=== PATIENT | female | born 1965 | race Caucasian/White ===

== ENCOUNTER → 2017-10-14 | Outpatient (CLI) | payer OTHER | END | disposition home or self-care (01) | LOC: RAD 10:31 | DX: M17.0 Bilateral primary osteoarthritis of knee (principal); M79.642 Pain in left hand; M79.641 Pain in right hand | CPT/HCPCS: 73130; 73562 ==

== ENCOUNTER 2017-10-28 17:15 | Emergency (ER) | payer SELFPAY, OTHER ==
[2017-10-28] MEDS ORDERED: oxyCODONE/APAP 5/325 1 TAB TABLET (17:32)
[2017-10-28] MEDS: oxyCODONE/APAP 5/325 1 TAB TABLET PO (17:34)
== END 2017-10-28 20:04 | disposition home or self-care (01) ==
LOC: ER 17:15
DX: M25.562 Pain in left knee (principal); M19.90 Unspecified osteoarthritis, unspecified site; E78.00 Pure hypercholesterolemia, unspecified; I10 Essential (primary) hypertension; E28.2 Polycystic ovarian syndrome; Z88.2 Allergy status to sulfonamides; Z88.1 Allergy status to other antibiotic agents; Z88.5 Allergy status to narcotic agent
CPT/HCPCS: 29505; 73562; 99284

== ENCOUNTER 2021-03-31 08:52 | Inpatient (IN) | payer SELFPAY ==
[~2021-03-31] VITALS: Ht 170.2 cm; Wt 171.5 kg
[~2021-03-31 08:52] MED LIST: ATOR20TA PO; HYDR-2145 PO; LEVO750T31 PO; LEVO750T5 PO; OLME1TAB23 PO; OLME20TA17 PO; OXYC5CAP PO; PROVENTIL HFA6.7 GM IH
[2021-03-31] MEDS ORDERED: IV NORMAL SALINE 500ML BAG 500 ML IV PRN (09:45)
[2021-03-31] MEDS ORDERED: VANCOMYCIN 2 GM in IV NORMAL SALINE 500ML BAG 500 ML IV ONE (10:00)
[2021-03-31] MEDS: IV NORMAL SALINE 1000ML BAG 1,860 ML IV SCH ×5 (10:03→13:45)
[2021-03-31 10:07] LABS: CALCIUM 8.6 mg/dL (8.5-10.1); CREATININE 1.2 mg/dL (0.6-1.0); GFR 46.6; POTASSIUM 3.6 mmol/L (3.5-5.1)
[2021-03-31 10:13] LABS: ALBUMIN 2.9 g/dL (3.4-5.0); ALBUMIN/GLOBULIN RATIO 0.7 (1.0-1.7); TOTAL BILIRUBIN 0.6 mg/dL (0.2-1.0); TOTAL PROTEIN 7.3 g/dL (6.4-8.2)
[2021-03-31 10:22] LABS: BILIRUBIN,URINE NEGATIVE (NEG); CLARITY,URINE CLEAR; COLOR,URINE AMBER; NITRITE,URINE NEGATIVE (NEG); PH,URINE 5.5 (<5.0-8.0); PROTEIN,URINE 100 mg/dL (NEG-TRACE)
[2021-03-31] MEDS ORDERED: ACETAMINOPHEN 500 MG TABLET PO ONE (10:30)
--- NOTE | 2021-03-31 10:35 | PHYS DOC ---
Past Medical History Past Medical History: Arthritis, Bronchitis, Endometriosis, High Cholesterol, Hypertension Additional Past Medical Histor: polycystic ovarian syndrome Past Surgical History: Appendectomy, , Other Additional Past Surgical Histo: meniscus Smoking Status: Current Every Day Smoker Alcohol Use: Occasionally Drug Use: None General Adult EDM: Chief Complaint: SHORTNESS OF BREATH HPI: HPI: Patient is a 55 year old female who presents with shortness of breath. States that shortness of breath started this morning, but she had 2 weeks of cough productive of clear sputum. Over the same timeframe she is also had a progressive rash on her right lower extremity that has been draining purulent material. Has not sought medical care for this. States that she started to have fevers this morning. She states that she has been fully vaccinated for Covid. Denies known Covid contacts. Has not had a Covid test during this illne ss. She has been isolating at home since she has been feeling unwell. Denies chest pain Review of Systems: Review of Systems: Constitutional: Reports fever and chills [] Eyes: Denies change in visual acuity. [] HENT: Denies nasal congestion or sore throat. [] Respiratory: reports cough and shortness of breath. [] Cardiovascular: Denies chest pain or edema. [] GI: Denies abdominal pain, nausea, vomiting, bloody stools or diarrhea. [] : Denies dysuria. [] Musculoskeletal: Denies back pain or joint pain. [] Integument: Reports lower extremity rash [] Neurologic: Denies headache, focal weakness or sensory changes. [] Endocrine: Denies polyuria or polydipsia. [] Lymphatic: Denies swollen glands. [] Psychiatric: Denies depression or anxiety. [] Heart Score: C/O Chest Pain: No Risk Factors: Risk Factors: DM, Current or recent (<one month) smoker, HTN, HLP, family history of CAD, obesity. Risk Scores: Score 0 - 3: 2.5% MACE over next 6 weeks - Discharge Home Score 4 - 6: 20.3% MACE over next 6 weeks - Admit for Clinical Observation Score 7 - 10: 72.7% MACE over next 6 weeks - Early Invasive Strategies Current Medications: Current Medications Medications (Trade) Dose Ordered Sig/Donavan Start Time Stop Time Status Last Admin Dose Admin Levofloxacin/ Dextrose 150 ml @ 100 mls/hr 1X ONCE 03/31/21 09:45 03/31/21 11:14 03/31/21 10:03 100 MLS/HR Sodium Chloride 500 ml @ 1,000 mls/hr PRN Q30MIN PRN 03/31/21 09:45 Vancomycin HCl (Vanco Per Pharmacy) 1 each PRN DAILY PRN 03/31/21 09:45 UNV Vancomycin HCl 2 gm/Sodium Chloride 500 ml @ 250 mls/hr 1X ONCE 03/31/21 10:00 03/31/21 11:59 Allergies: Allergies: Allergies Coded Allergies Type Severity Reaction Last Updated Verified Sulfa (Sulfonamide Antibiotics) Allergy Intermediate hives 03/30/15 Yes cephalexin Allergy Intermediate Hives 04/04/16 Yes codeine Allergy Intermediate 04/04/16 Yes hydrocodone Allergy Intermediate 04/04/16 Yes tetracycline Allergy Intermediate 04/04/16 Yes Physical Exam: PE: Constitutional: Obese, chronically ill-appearing.] HENT: Normocephalic, atraumatic,. [] Eyes: PERRLA, EOMI, conjunctiva normal, no discharge. [] Neck: Normal range of motion, no tenderness, supple, no stridor. [] Cardiovascular: Tachycardic. Regular rhythm, no murmur [] Lungs & Thorax: Rhonchi bilaterally on anterior auscultatory exam. On 6 L/min nasal cannula [] Abdomen: Bowel sounds normal, soft, no tenderness, no masses, no pulsatile masses. [] Skin: Warm, dry, no erythema, no rash. [] Back: No tenderness, no CVA tenderness. [] Extremities: Bilateral lower extremity edema. Streaking redness up her right leg. Purulent ulcers on the anterior villalpando on the right.. [] Neurologic: Alert and oriented X 3, normal motor function, normal sensory function, no focal deficits noted. [] Psychologic: Affect normal, judgement normal, mood normal. [] Current Patient Data: Labs: Laboratory Tests Test 03/31/21 09:28 Sodium Level 137 mmol/L (136-145) Potassium Level 3.6 mmol/L (3.5-5.1) Chloride Level 100 mmol/L (98-107) Carbon Dioxide Level 30 mmol/L (21-32) Anion Gap 7 (6-14) Blood Urea Nitrogen 12 mg/dL (7-20) Creatinine 1.2 mg/dL (0.6-1.0) H Estimated GFR (Cockcroft-Gault) 46.6 BUN/Creatinine Ratio 10 (6-20) Glucose Level 182 mg/dL (70-99) H Lactic Acid Level 3.6 mmol/L (0.4-2.0) H Calcium Level 8.6 mg/dL (8.5-10.1) Total Bilirubin 0.6 mg/dL (0.2-1.0) Aspartate Amino Transferase (AST) 12 U/L (15-37) L Alanine Aminotransferase (ALT) 27 U/L (14-59) Alkaline Phosphatase 118 U/L (46-116) H Total Protein 7.3 g/dL (6.4-8.2) Albumin 2.9 g/dL (3.4-5.0) L Albumin/Globulin Ratio 0.7 (1.0-1.7) L Laboratory Tests 03/31/21 09:28 Vital Signs: Vital Signs Date Time Temp Pulse Resp B/P (MAP) Pulse Ox O2 Delivery O2 Flow Rate FiO2 03/31/21 10:01 103.1 123 25 117/54 (75) 99 Nasal Cannula 4.0 103.1 EKG: EKG: Sinus rhythm. Rate 129. [] Radiology/Procedures: Radiology/Procedures: [] Course & Med Decision Making: Course & Med Decision Making Pertinent Labs and Imaging studies reviewed. (See chart for details) Patient a 55-year-old female who presents with 2 weeks of cough now with fever and shortness of breath. She also complains of 2 weeks of right lower extremity rash with purulent disch arge. On arrival is febrile to 103 F, tachycardic to the 120s/130s. Satting in the 70s on room air. Oxygen only to 86% on 5 L/min nasal cannula. Oxygen corrected into the 90s with 6 L/min nasal cannula. Vancomycin and Zosyn ordered to cover soft tissue infection as well as potential pneumonia with atypical coverage. 30 mL/kg IV fluids ordered. Lactate elevated initially to 3.6 Will require repeat after volume resuscitation. Patient will clearly require admission for sepsis and hypoxic respiratory failure. 1032 On reevaluation heart rate is improving. Cap refill remains brisk. Will be COVID PUI. Confirmed FULL CODE status with patient. Dragon Disclaimer: Dragdamir Disclaimer: This electronic medical record was generated, in whole or in part, using a voice recognition dictation system. Departure Departure Impression: Primary Impression: Sepsis Additional Impressions: Cellulitis of lower extremity Respiratory failure with hypoxia Disposition: ADMITTED INPATIENT Admitting Physician: SAIMA Bashir) Condition: IMPROVED Referrals: NO PCP (PCP) MACRINA LEVINE MD Mar 31, 2021 10:35
[2021-03-31 10:38] LABS: BACTERIA,URINE 0 /HPF (0-FEW)
[2021-03-31 10:39] LABS: AMORPHOUS SEDIMENT,UR PRESENT /HPF
[2021-03-31 11:33] LABS: BASO # 0.1 x10^3/uL (0.0-0.2); BASO % 0 % (0-3); EOS % 0 % (0-3); HEMATOCRIT 35.1 % (36.0-47.0); HEMOGLOBIN 11.8 g/dL (12.0-15.5); LYMPH # 0.5 x10^3/uL (1.0-4.8); LYMPH % 3 % (24-48); MEAN CORPUSCULAR HEMOGLOBIN 31 pg (25-35); MEAN CORPUSCULAR HGB CONC 34 g/dL (31-37); MEAN CORPUSCULAR VOLUME 92 fL (79-100); MONO # 0.7 x10^3/uL (0.0-1.1); MONO % 4 % (0-9); NEUT # 17.3 x10^3/uL (1.8-7.7); NEUT % 93 % (31-73); PLATELET COUNT 316 x10^3/uL (140-400); RED BLOOD COUNT 3.79 x10^6/uL (3.50-5.40); RED CELL DISTRIBUTION WIDTH 14.6 % (11.5-14.5); WHITE BLOOD COUNT 18.6 x10^3/uL (4.0-11.0)
--- NOTE | 2021-03-31 11:53 | RAD ---
EXAM: XR CHEST 1V 03/31/2021 10:15 AM CLINICAL INDICATION: Fever, sepsis, hypoxia COMPARISON: Chest radiograph 04/04/2016 TECHNIQUE: AP view of the chest FINDINGS: Cardiac silhouette is unchanged. There are bibasilar airspace opacities. No pleural effusi on or pneumothorax. No acute osseous abnormality. IMPRESSION: Bibasilar airspace opacities suspicious for pneumonia. Pulmonary edema is also possible. Electronically signed by: Corazon Rosales MD (03/31/2021 11:50 AM) [id number]
[2021-03-31] MEDS ORDERED: ALBUTEROL SULFATE IH PRN (12:15)
[2021-03-31] MEDS ORDERED: ALBUTEROL SULFATE 2.5 MG/3 ML NEBU. NEB PRN (12:30)
[2021-03-31] MEDS ORDERED: oxyCODONE IR 5 MG TABLET PO PRN (12:30)
[2021-03-31 12:32] LABS: % BANDS 13 % (0-9); % LYMPHS 5 % (24-48); % MONOS 1 % (0-10); % SEGS 81 % (35-66); PLT ESTIMATE ADEQUATE (ADEQUATE)
[2021-03-31 12:33] LABS: BASE EXCESS COOX -2 mmol/L (-3-3); HCO3 COOX 28 mmol/L (21-28); METHEMOGLOBIN 0.7 % (0.0-1.9); OXYHEMOGLOBIN 90.6 %; PO2 COOX 76 mmHg (75-108); SAT O2 COOX 92 % (92-99)
[2021-03-31 12:35] LABS: PCO2 COOX 71 mmHg (35-46)
--- NOTE | 2021-03-31 13:08 | HP ---
ADMIT DATE: 03/31/2021 CHIEF COMPLAINT: Respiratory failure. HISTORY OF PRESENT ILLNESS: The patient is a pleasant 55-year-old female presents with severe shortness of breath. It has been occurring for a couple of weeks. It got particularly bad this morning. She came in by ambulance. She has lower extremity edema. She also was hypoxic with a sat of 71% on 6 liters. She is also tachycardic, appears to be septic. Also, has a leukocytosis of 18,000. I discussed the case with ER physician. We are going to admit the patient and consult Cardiology, Infectious Disease and Pulmonary Medicine. PAST MEDICAL HISTORY: Bronchitis, endometriosis, hypertension, hyperlipidemia, arthritis, polycystic ovarian disease, appendectomy, , meniscus tear, continued tobacco abuse, probable COPD. ALLERGIES: SULFA, CODEINE, CEPHALEXIN, HYDROCODONE AND TETRACYCLINE. FAMILY HISTORY: Diabetes. SOCIAL HISTORY: She smokes. No drinking or drugs. MEDICATIONS: Reviewed, please refer to the MRAD. REVIEW OF SYSTEMS: GENERAL: No history of weight change, weakness or fevers. SKIN: She complains of lower extremity cellulitis. EYES: No blurred, double or loss of vision. NOSE AND THROAT: No history of nosebleeds, hoarseness or sore throat. HEART: No history of palpitations, chest pain or shortness of breath on exertion. LUNGS: She complains of shortness of breath and cough. GASTROINTESTINAL: Denies changes in appetite, nausea, vomiting, diarrhea or constipation. GENITOURINARY: No history of frequency, urgency, hesitancy or nocturia. NEUROLOGIC: Denies history of numbness, tingling, tremor or weakness. PSYCHIATRIC: She complains of anxiety. ENDOCRINE: No history of heat or cold intolerance, polyuria or polydipsia. EXTREMITIES: She complains of edema. PHYSICAL EXAMINATION: VITALS: Within normal limits and are stable. GENERAL: She is morbidly obese writhing around in the bed, appears very agitated. HEENT: Normal cephalic atraumatic, external auditory canals are patent. EYES: Extraocular muscles are intact, pupils are equally round and reactive to light and accommodation MUSCULOSKELETAL: Well developed, well nourished, good range of motion. ENDOCRINE: No thyromegaly was palpated. LYMPHATICS: No cervical chain or axillary nodes were noted. HEMATOPOIETIC: No bruising. NECK: Supple, no JVD, no thyromegaly was noted. LUNGS: Diffuse crackles with diminished breath sounds. HEART: She has distant S1, S2 with tachycardia at 140 beats per minute. ABDOMEN: Morbidly obese. EXTREMITIES: 3+ edema with cellulitis. NEUROLOGIC: She is pleasantly confused. PSYCHIATRIC: She is anxious. SKIN: She has lower extremity cellulitis. VASCULAR: Good capillary refill, neurovascular bundle appears to be intact. LABORATORY DATA: White count is 18, hemoglobin is 12, platelets 316. Electrolytes are normal. Cardiac enzymes are pending. Urinalysis negative. COVID testing was negative. Chest x-ray shows congestive heart failure and/or pneumonia. ASSESSMENT AND PLAN: Respiratory failure, cellulitis, hypoxia, sepsis, morbid obesity, tachycardia. The patient has been admitted. We will consult Cardiology, Pulmonary, and Infectious Disease. We started IV antibiotics. We have given her IV fluids. We are going to continue with those. Home meds. Deep venous thrombosis prophylaxis. Full code. Check an ABG. Await cardiac enzymes. She got 1 dose of Levaquin and vancomycin in the ER. Trend labs. Prognosis is extremely guarded at best. JINNY/BASIL/JOHN DR: JINNY/latia TID: [id number]
[2021-03-31] MEDS: hydroCHLOROthiazide 12.5 MG CAPSULE PO SCH (14:00)
[2021-03-31] MEDS: LOSARTAN POTASSIUM 50 MG TABLET. PO SCH (14:00)
[2021-03-31 14:31] LABS: BASE EXCESS ABG 0 mmol/L (-3-3); HCO3 ABG 28 mmol/L (21-28); PO2 ABG 135 mmHg (75-108); SAT O2 ABG 98 % (92-99)
[2021-03-31 14:34] LABS: PCO2 ABG 63 mmHg (35-46)
[2021-03-31] MEDS: VANCOMYCIN PER PHARMACY MC PRN (16:19)
--- NOTE | 2021-03-31 16:21 | NUR ---
Pharmacy Vancomycin Dosing Note S:Consulted to monitor and dose vancomycin started 03/31/21. O:ALBERT BROOKS is a 55 year old F with Cellulitis Sepsis RESP FAILURE . Height: 5 feet, 7 inches Weight: 152.2 kg [place] Body Weight: 66.10 Adjusted Body Weight: 100.54 Dosing Weight: Actual Other Antibiotics: LEVAQUIN 750MG X1 (03/31) LABS: Last BUN: 12 Last Creatinine: 1.2 Creatinine Clearance: 82 mL/min Last WBC: 18.6 Last Procalcitonin: Tmax (past 24 hours): 103.1 Microbiology: I/O: Drug Levels: Last level: on at Last dose given 03/31/21 at 1133 Vancomycin Dosing: Loading Dose: 2000 mg x1 Dosing Weight: Actual Target Trough: 15-20 A: Based on: Body weight and renal function P: 1. Start Vancomycin 2000 mg IV q12h 2. Follow up Trough level on 04/01/21 at 2300 3. Pharmacy will continue to monitor, follow and adjust therapy as needed. IVAN CANO [facility], 03/31/21 [id number]
--- NOTE | 2021-03-31 16:22 | EKG ---
[facility] [address] [place] [address] Test Date: 2021-03-31 Test Time: 09:17:26 Pat Name: ALBERT BROOKS Department: Room: [facility] Gender: F Qa Tech: : 1965 Requested By: MACRINA LEVINE Order Number: [id number] Reading MD: Measurements Intervals [place] Rate: 129 P: -79 NM: 146 QRS: 43 QRSD: 88 T: 69 QT: 302 QTc: 444 Interpretive Statements SINUS TACHYCARDIA ST & T ABNORMALITY, CONSIDER HIGH LATERAL ISCHEMIA OR LEFT VENTRICULAR STRAIN ABNORMAL ECG RI6.02 Compared to ECG 03/31/2021 09:14:51 T-wave abnormality now present Possible ischemia now present
--- NOTE | 2021-03-31 16:22 | EKG ---
[facility] [address] [place] [address] Test Date: 2021-03-31 Test Time: 09:14:51 Pat Name: ALBERT BROOKS Department: Room: [facility] Gender: F Medical Device Sales Representative: : 1965 Requested By: MACRINA LEVINE Order Number: [id number] Reading MD: Measurements Intervals [place] Rate: 125 P: 47 GA: 154 QRS: 44 QRSD: 86 T: 74 QT: 304 QTc: 441 Interpretive Statements Cannot analyze ECG CHEST LEAD(S) MISSING! (Measurements might be questionable) RI6.02 No previous ECG available for comparison
[2021-03-31 17:05] VITALS: BP 125/65
[2021-03-31] MEDS ORDERED: IV NORMAL SALINE 1000ML BAG 1,000 ML IV ONE (17:15)
[2021-03-31] MEDS ORDERED: LORazepam 0.5 MG TABLET PO PRN (17:15)
[2021-03-31] MEDS ORDERED: MORPHINE SULFATE 2 MG/ML INJ. IV PRN (17:15)
[2021-03-31 19:00] VITALS: BP 178/85
[2021-03-31] MEDS: VANCOMYCIN 2 GM in IV NORMAL SALINE 500ML BAG 500 ML IV SCH (22:33)
[2021-03-31 23:00] VITALS: BP_SYST 137; BP_SYST 67; BP_DIAS 67; BP_DIAS 85
[2021-04-01 02:35] VITALS: BP 130/70
[2021-04-01 05:01] LABS: BASO % 0 % (0-3); EOS % 0 % (0-3); HEMATOCRIT 32.5 % (36.0-47.0); HEMOGLOBIN 11.1 g/dL (12.0-15.5); LYMPH # 0.6 x10^3/uL (1.0-4.8); LYMPH % 4 % (24-48); MEAN CORPUSCULAR HEMOGLOBIN 32 pg (25-35); MEAN CORPUSCULAR HGB CONC 34 g/dL (31-37); MEAN CORPUSCULAR VOLUME 93 fL (79-100); MONO # 0.6 x10^3/uL (0.0-1.1); MONO % 3 % (0-9); NEUT # 15.6 x10^3/uL (1.8-7.7); NEUT % 93 % (31-73); PLATELET COUNT 244 x10^3/uL (140-400); RED BLOOD COUNT 3.51 x10^6/uL (3.50-5.40); RED CELL DISTRIBUTION WIDTH 14.8 % (11.5-14.5); WHITE BLOOD COUNT 16.8 x10^3/uL (4.0-11.0)
[2021-04-01 05:11] LABS: CALCIUM 8.7 mg/dL (8.5-10.1); CREATININE 0.9 mg/dL (0.6-1.0); POTASSIUM 3.7 mmol/L (3.5-5.1)
[2021-04-01 07:00] VITALS: BP 173/75
[2021-04-01] MEDS: ATORVASTATIN CALCIUM 20 MG TABLET PO SCH (09:28)
[2021-04-01] MEDS: hydroCHLOROthiazide 12.5 MG CAPSULE PO SCH (09:28)
[2021-04-01] MEDS: LOSARTAN POTASSIUM 50 MG TABLET. PO SCH (09:28)
[2021-04-01] MEDS: ACETAMINOPHEN 325 MG TABLET. PO PRN (09:28)
--- NOTE | 2021-04-01 09:49 | CONS ---
DATE OF CONSULTATION: 04/01/2021 PULMONARY CONSULTATION ATTENDING PHYSICIAN: Kei Loyd DO. REASON FOR CONSULTATION: Respiratory failure. HISTORY OF PRESENT ILLNESS: The patient is a 55-year-old morbidly obese female with a BMI of 59.9 and history of tobacco use. She was brought into the hospital with dyspnea. She was hypoxic with saturation of 71% on 6 liters. She is also tachycardic. The patient had some cough with some chest pain. Her initial arterial blood gases in the ER was abnormal and it showed a pH of 7.21, pCO2 of 71, pO2 of 76 on 40% FIO2. She was then placed on BiPAP. FiO2 was increased to 60% for unclear reasons. PH was 7.27, pCO2 of 63 and a pO2 of 135. Apparently, she was kept on the BiPAP at the same FiO2 overnight. I saw the patient this morning. Unable to obtain much history from the patient as she is on a BiPAP. She admits to long history of tobacco use. No chest pain. She has mild cough. Saturations are 99%. PAST MEDICAL HISTORY: Likely COPD. History of suspected MINA/obesity hypoventilation syndrome, history of polycystic ovarian disease. Hypertension, bronchitis, endometriosis, hyperlipidemia. PAST SURGICAL HISTORY: , meniscus tear. ALLERGIES: SULFA, CEPHALEXIN, CODEINE, HYDROCODONE, AND TETRACYCLINE. MEDICATIONS: Reviewed as listed in the MRAD including antibiotic vancomycin, which was given once. SYSTEM REVIEW: Limited, but pertinent positives discussed in my history of present illness. SOCIAL HISTORY: Has long history of tobacco use and still smokes. PHYSICAL EXAMINATION: VITAL SIGNS: Reviewed. Afebrile, pulse ox 99% on 60% FiO2 with BiPAP. NECK: Supple. LUNGS: Diminished breath sounds bilaterally. CARDIOVASCULAR: With a regular rate. ABDOMEN: Soft, markedly obese. EXTREMITIES: With bilateral pitting edema. LABORATORY AND DIAGNOSTIC DATA: Labs are reviewed. COVID rapid negative. BUN 12, creatinine 0.9. Troponin 0.56. White cell count 16.8, hemoglobin 11.1 and platelets are 244. IMPRESSION: 1. Acute on chronic hypoxic and hypercapnic respiratory failure, likely secondary to right heart failure versus left heart failure and could be combined heart failure. Clinically, less likely pneumonia. Clinically, less likely COVID. Rapid test for COVID is negative. 2. Underlying obstructive sleep apnea along with obesity hypoventilation syndrome with cor pulmonale. 3. Mildly increased troponin. 4. Mildly increased lactic acid from increased work of breathing, now improved. 5. Abnormal chest x-ray with bilateral interstitial infiltrates, likely congestive heart failure. RECOMMENDATIONS: 1. I have reduced the FiO2 down to 40%. We will avoid hyperoxia. 2. Follow ABGs in few hours. 3. Diuresis. 4. Obtain echocardiogram. 5. Discontinue oxycodone. 6. Continue nebulizer. 7. Smoking cessation counseling provided. 8. Discontinue lorazepam and morphine. 9. Discussed with RN. We will follow along with you. cct 30 min LIVIA/JOHNATHAN DR: Lauro TID: [id number] JEFF
[2021-04-01] MEDS: VANCOMYCIN PER PHARMACY MC PRN (10:01)
[2021-04-01 11:00] VITALS: BP 98/51
[2021-04-01] MEDS: VANCOMYCIN 2 GM in IV NORMAL SALINE 500ML BAG 500 ML IV SCH (12:18)
[2021-04-01] MEDS ORDERED: PIP/TAZO PER PHARMACY MC PRN (12:30)
--- NOTE | 2021-04-01 12:31 | PDOC ---
[facility] PROGRESS NOTE Date of Service DOS: DATE: 04/01/21 TIME: 12:18 Chief Complaint Chief Complaint Sepsis Acute on chronic hypoxic and hypercapnic respiratory failure Bilateral bibasilar pneumonia, possible gram-negative organism, possible aspiration MINA Cor pulmonale Elevated troponins MAURA due to vasomotor nephropathy Lactic acidemia Super super morbid obesity Anemia of chronic disease Severe protein malnutrition Appreciate pulmonary and surgery recommendationscontinue BiPAP and O2 supplementation. Repeat ABG. Pending cardiology evaluation Pending ID evaluation Continue empiric IV antibiotics Lovenox DVT prophylaxis Protonix GI prophylaxis ADA diet CODE STATUS full Discussed with RN and SW Disposition inpatient management as above DPOA: Designated History of Present Illness History of Present Illness 55-year-old female presents with severe shortness of breath. It has been occurring for a couple of weeks. It got particularly bad this morning. She came in by ambulance. She has lower extremity edema. She also was hypoxic with a sat of 71% on 6 liters. She is also tachycardic, appears to be septic. 04/01/2021 No acute events overnight. Patient continues to be on BiPAP and is saturating 96% on 60% FiO2. This will be titrated down to 40% per pulmonology pending further ABG. Fever overnight with T-max of 102.7. Patient seen and examined bedside with altered mental status. But she is able to keep the BiPAP on without agitation. However patient does require some sedatives such as Ativan to help her keep the mask on. Patient's chart, labs, images were reviewed and discussed with RN A total of 35 minutes of critical care time was spent in reviewing chart, labs, and images. Discussed with RN and SW. Vitals/I&O Vitals/I&O: Vital Signs Date Time Temp Pulse Resp B/P (MAP) Pulse Ox O2 Delivery O2 Flow Rate FiO2 04/01/21 11:00 100.7 96 19 98/51 (67) 96 BiPAP/CPAP 60.0 100.7 I & O 03/31/21 03/31/21 04/01/21 15:00 23:00 07:00 Intake Total 500 ml 0 ml 0 ml Output Total 800 ml Balance 500 ml 0 ml -800 ml Physical Exam General: Alert, No acute distress Heart: No murmurs Lungs: Clear Abdomen: Normal bowel sounds Extremities: No clubbing Labs Labs: Laboratory Tests Test 03/31/21 12:33 03/31/21 13:10 03/31/21 14:20 04/01/21 04:30 O2 Saturation 92 % (92-99) 98 % (92-99) Arterial Blood pH 7.21 (7.35-7.45) 7.27 (7.35-7.45) Arterial Blood pCO2 at Patient Temp 71 mmHg (35-46) 63 mmHg (35-46) Arterial Blood pO2 at Patient Temp 76 mmHg (75-108) 135 mmHg (75-108) Arterial Blood HCO3 28 mmol/L (21-28) 28 mmol/L (21-28) Arterial Blood Base Excess -2 mmol/L (-3-3) 0 mmol/L (-3-3) Oxyhemoglobin 90.6 % Methemoglobin 0.7 % (0.0-1.9) Carbon Monoxide, Quantitative 1.2 % (0.0-1.9) FiO2 40% 5lnc 60 bipap Lactic Acid Level 1.2 mmol/L (0.4-2.0) White Blood Count 16.8 x10^3/uL (4.0-11.0) Red Blood Count 3.51 x10^6/uL (3.50-5.40) Hemoglobin 11.1 g/dL (12.0-15.5) Hematocrit 32.5 % (36.0-47.0) Mean Corpuscular Volume 93 fL (79-100) Mean Corpuscular Hemoglobin 32 pg (25-35) Mean Corpuscular Hemoglobin Concent 34 g/dL (31-37) Red Cell Distribution Width 14.8 % (11.5-14.5) Platelet Count 244 x10^3/uL (140-400) Neutrophils (%) (Auto) 93 % (31-73) Lymphocytes (%) (Auto) 4 % (24-48) Monocytes (%) (Auto) 3 % (0-9) Eosinophils (%) (Auto) 0 % (0-3) Basophils (%) (Auto) 0 % (0-3) Neutrophils # (Auto) 15.6 x10^3/uL (1.8-7.7) Lymphocytes # (Auto) 0.6 x10^3/uL (1.0-4.8) Monocytes # (Auto) 0.6 x10^3/uL (0.0-1.1) Eosinophils # (Auto) 0.0 x10^3/uL (0.0-0.7) Basophils # (Auto) 0.0 x10^3/uL (0.0-0.2) Sodium Level 139 mmol/L (136-145) Potassium Level 3.7 mmol/L (3.5-5.1) Chloride Level 103 mmol/L (98-107) Carbon Dioxide Level 35 mmol/L (21-32) Anion Gap 1 (6-14) Blood Urea Nitrogen 12 mg/dL (7-20) Creatinine 0.9 mg/dL (0.6-1.0) Estimated GFR (Cockcroft-Gault) 65.0 Glucose Level 112 mg/dL (70-99) Calcium Level 8.7 mg/dL (8.5-10.1) Assessment and Plan Assessmemt and Plan Problems Medical Problems: (1) Cellulitis of lower extremity Status: Acute (2) Respiratory failure with hypoxia Status: Acute (3) Sepsis Status: Acute Comment Review of Relevant I have reviewed the following items sunitha (where applicable) has been applied. Medications: Current Medications Medications (Trade) Dose Ordered Sig/Donavan Route PRN Reason Start Time Stop Time Status Last Admin Dose Admin Atorvastatin Calcium (Lipitor) 20 mg DAILY PO 04/01/21 09:00 04/01/21 09:28 Losartan Potassium (Cozaar) 100 mg DAILY PO 03/31/21 14:00 04/01/21 09:28 Hydrochlorothiazide (Microzide) 12.5 mg DAILY PO 03/31/21 14:00 04/01/21 09:28 Vancomycin HCl 2 gm/Sodium Chloride 500 ml @ 250 mls/hr Q12H IV 03/31/21 23:30 03/31/21 22:33 Morphine Sulfate (Morphine Sulfate) 2 mg PRN Q2HR PRN IV MODERATE TO SEVERE PAIN 03/31/21 17:15 04/01/21 08:21 DC 04/01/21 01:50 Sodium Chloride 1,000 ml @ 75 mls/hr 1X ONCE IV 03/31/21 17:15 04/01/21 06:34 DC 03/31/21 22:11 Acetaminophen (Tylenol) 650 mg PRN Q6HRS PRN PO MILD PAIN / TEMP > 100.3'F 04/01/21 08:45 04/01/21 09:28 Justifications for Admission Other Justification MARIALUISA RIVAS MD Apr 01, 2021 12:31
[2021-04-01] MEDS ORDERED: ENOXAPARIN 30 MG/0.3 ML SYRINGE. SQ ONE (13:00)
[2021-04-01] MEDS: PIPERACILLIN/TAZOBACTAM 3.375 GM in IV NORMAL SALINE 50ML 50 ML IV SCH ×2 (14:09→17:07)
[2021-04-01] MEDS: PANTOPRAZOLE 40 MG TABLET.DR. PO SCH (14:10)
[2021-04-01 14:55] LABS: BASE EXCESS ABG 4 mmol/L (-3-3); HCO3 ABG 31 mmol/L (21-28); PCO2 ABG 55 mmHg (35-46); PO2 ABG 84 mmHg (75-108); SAT O2 ABG 96 % (92-99)
[2021-04-01 15:00] VITALS: BP 145/74
[2021-04-01 15:16] LABS: FIO2 ABG 35
[2021-04-01 15:20] LABS: BASE EXCESS ABG 6 mmol/L (-3-3); HCO3 ABG 33 mmol/L (21-28); PCO2 ABG 58 mmHg (35-46); PO2 ABG 93 mmHg (75-108)
[2021-04-01 15:21] LABS: FIO2 ABG 60; SAT O2 ABG 95 % (92-99)
--- NOTE | 2021-04-01 15:57 | PDOC2 ---
CONSULT Date of Consult Date of Consult DATE: 04/01/21 TIME: 15:50 Reason for Consult Reason for Consult: Shortness of breath, elevated troponin Referring Physician Referring Physician: Dr. Loyd Identification/Chief Complaint Chief Complaint Increasing shortness of breath Source Source: Chart review, Patient History of Present Illness Reason for Visit: The patient is a 55-year-old female who was admitted through the emergency room for several days of increasing shortness of breath. Patient also was found to have a temperature of 103 degrees on admission from the ER and her chest x-ray showed bilateral pleural air space opacities consistent with possible pneumonia or heart failure. The patient was in a sinus tachycardia with no acute ischemic changes. She was started on antibiotics and pulmonary treatments. She is now on CPAP and continues to be short of breath. Initial testing for COVID-19 has been negative. She is mildly more comfortable today. Past Medical History Cardiovascular: HTN, Hyperlipidemia Pulmonary: Bronchitis, COPD Endocrine: Other Past Surgical History Past Surgical History: Appendectomy, Family History Family History: Diabetes Social History <1 pack per day ALCOHOL: occassional Current Problem List Problem List Problems Medical Problems: (1) Cellulitis of lower extremity Status: Acute (2) Respiratory failure with hypoxia Status: Acute (3) Sepsis Status: Acute Current Medications Current Medications Current Medications Sodium Chloride 1,860 ml @ 1,860 mls/hr Q1H IV Last administered on 03/31/21at 12:33; Start 03/31/21 at 09:45; Stop 03/31/21 at 22:11; Status DC Sodium Chloride 500 ml @ 1,000 mls/hr PRN Q30MIN PRN IV SEE COMMENTS; Start 03/31/21 at 09:45 Vancomycin HCl (Vanco Per Pharmacy) 1 each PRN DAILY PRN MC SEE COMMENTS Last administered on 04/01/21at 10:01; Start 03/31/21 at 09:45; Stop 04/01/21 at 12:31; Status DC Levofloxacin/ Dextrose 150 ml @ 100 mls/hr 1X ONCE IV Last administered on 03/31/21at 10:03; Start 03/31/21 at 09:45; Stop 03/31/21 at 11:14; Status DC Vancomycin HCl 2 gm/Sodium Chloride 500 ml @ 250 mls/hr 1X ONCE IV Last administered on 03/31/21at 11:33; Start 03/31/21 at 10:00; Stop 03/31/21 at 11:59; Status DC Acetaminophen (Tylenol) 1,000 mg 1X ONCE PO Last administered on 03/31/21at 12:01; Start 03/31/21 at 10:30; Stop 03/31/21 at 10:31; Status DC Atorvastatin Calcium (Lipitor) 20 mg DAILY PO Last administered on 04/01/21at 09:28; Start 04/01/21 at 09:00 Non-Formulary Medication (Albuterol Sulfate (Proventil Hfa Inhaler)) . PRN PRN IH WHEEZING; Start 03/31/21 at 12:15; Status UNV Losartan Potassium (Cozaar) 100 mg DAILY PO Last administered on 04/01/21at 09:28; Start 03/31/21 at 14:00 Oxycodone HCl (Roxicodone) 5 mg PRN QID PRN PO MODERATE TO SEVERE PAIN; Start 03/31/21 at 12:30; Stop 04/01/21 at 08:21; Status DC Hydrochlorothiazide (Microzide) 12.5 mg DAILY PO Last administered on 04/01/21at 09:28; Start 03/31/21 at 14:00 Albuterol Sulfate (Ventolin Neb Soln) 2.5 mg PRN Q4HRS PRN NEB SHORTNESS OF BREATH; Start 03/31/21 at 12:30 Vancomycin HCl 2 gm/Sodium Chloride 500 ml @ 250 mls/hr Q12H IV Last administered on 04/01/21at 12:18; Start 03/31/21 at 23:30; Stop 04/01/21 at 12:27; Status DC Vancomycin HCl (Vancomycin Trough Level) 1 each 1X ONCE MC ; Start 04/01/21 at 23:00; Stop 04/01/21 at 12:34; Status DC Lorazepam (Ativan) 0.25 mg PRN Q6HRS PRN PO ANXIETY / AGITATION; Start 03/31/21 at 17:15; Stop 04/01/21 at 08:21; Status DC Morphine Sulfate (Morphine Sulfate) 2 mg PRN Q2HR PRN IV MODERATE TO SEVERE PAIN Last administered on 04/01/21at 01:50; Start 03/31/21 at 17:15; Stop 04/01/21 at 08:21; Status DC Sodium Chloride 1,000 ml @ 75 mls/hr 1X ONCE IV Last administered on 03/31/21at 22:11; Start 03/31/21 at 17:15; Stop 04/01/21 at 06:34; Status DC Acetaminophen (Tylenol) 650 mg PRN Q6HRS PRN PO MILD PAIN / TEMP > 100.3'F Last administered on 04/01/21at 09:28; Start 04/01/21 at 08:45 Piperacillin Sod/ Tazobactam Sod (Zosyn Per Pharmacy) 1 each PRN DAILY PRN MC SEE COMMENTS; Start 04/01/21 at 12:30 Enoxaparin Sodium (Lovenox 30mg Syringe) 30 mg 1X ONCE SQ Last administered on 04/01/21at 14:08; Start 04/01/21 at 13:00; Stop 04/01/21 at 13:01; Status DC Pantoprazole Sodium (Protonix) 40 mg DAILYAC PO Last administered on 04/01/21at 14:10; Start 04/01/21 at 14:00 Piperacillin Sod/ Tazobactam Sod 3.375 gm/Sodium Chloride 50 ml @ 100 mls/hr Q6HRS IV Last administered on 04/01/21at 14:09; Start 04/01/21 at 13:30 Lactobacillus Rhamnosus (Culturelle) 1 cap BID PO ; Start 04/01/21 at 21:00 Linezolid (Zyvox) 600 mg BID PO ; Start 04/01/21 at 21:00 Active Scripts Active Oxycodone Hcl 5 Mg Capsule 1 Cap PO QID PRN Levaquin (Levofloxacin) 750 Mg Tablet 750 Mg PO DAILY06 Reported Benicar Hct 40-12.5 Mg Tablet (Olmesartan/Hydrochlorothiazide) 1 Each Tablet 1 Tab PO DAILY Lipitor (Atorvastatin Calcium) 20 Mg Tablet 1 Tab PO DAILY Proventil Hfa Inhaler (Albuterol Sulfate) 6.7 Gm Hfa.aer.ad 1-2 Puff IH PRN PRN Allergies Allergies: Coded Allergies: Sulfa (Sulfonamide Antibiotics) (Verified Allergy, Intermediate, hives, 03/30/15) cephalexin (Verified Allergy, Intermediate, Hives, 04/04/16) codeine (Verified Allergy, Intermediate, 04/04/16) hydrocodone (Verified Allergy, Intermediate, 04/04/16) tetracycline (Verified Allergy, Intermediate, 04/04/16) ROS Respiratory: YES: Shortness of breath, SOB with excertion Physical Exam General: moderate distress Lungs: Other (Decreased breath sounds) Heart: Other (Tachycardia) Abdomen: Normal bowel sounds Vitals VITALS Vital Signs Date Time Temp Pulse Resp B/P (MAP) Pulse Ox O2 Delivery O2 Flow Rate FiO2 04/01/21 15:00 99.2 101 19 145/74 (97) 91 Nasal Cannula 2.0 99.2 Labs Labs Laboratory Tests Test 03/31/21 09:28 03/31/21 09:31 03/31/21 09:54 03/31/21 12:33 White Blood Count 18.6 x10^3/uL (4.0-11.0) Red Blood Count 3.79 x10^6/uL (3.50-5.40) Hemoglobin 11.8 g/dL (12.0-15.5) Hematocrit 35.1 % (36.0-47.0) Mean Corpuscular Volume 92 fL (79-100) Mean Corpuscular Hemoglobin 31 pg (25-35) Mean Corpuscular Hemoglobin Concent 34 g/dL (31-37) Red Cell Distribution Width 14.6 % (11.5-14.5) Platelet Count 316 x10^3/uL (140-400) Neutrophils (%) (Auto) 93 % (31-73) Lymphocytes (%) (Auto) 3 % (24-48) Monocytes (%) (Auto) 4 % (0-9) Eosinophils (%) (Auto) 0 % (0-3) Basophils (%) (Auto) 0 % (0-3) Neutrophils # (Auto) 17.3 x10^3/uL (1.8-7.7) Lymphocytes # (Auto) 0.5 x10^3/uL (1.0-4.8) Monocytes # (Auto) 0.7 x10^3/uL (0.0-1.1) Eosinophils # (Auto) 0.0 x10^3/uL (0.0-0.7) Basophils # (Auto) 0.1 x10^3/uL (0.0-0.2) Segmented Neutrophils % 81 % (35-66) Band Neutrophils % 13 % (0-9) Lymphocytes % 5 % (24-48) Monocytes % 1 % (0-10) Platelet Estimate Adequate (ADEQUATE) Sodium Level 137 mmol/L (136-145) Potassium Level 3.6 mmol/L (3.5-5.1) Chloride Level 100 mmol/L (98-107) Carbon Dioxide Level 30 mmol/L (21-32) Anion Gap 7 (6-14) Blood Urea Nitrogen 12 mg/dL (7-20) Creatinine 1.2 mg/dL (0.6-1.0) Estimated GFR (Cockcroft-Gault) 46.6 BUN/Creatinine Ratio 10 (6-20) Glucose Level 182 mg/dL (70-99) Lactic Acid Level 3.6 mmol/L (0.4-2.0) Calcium Level 8.6 mg/dL (8.5-10.1) Total Bilirubin 0.6 mg/dL (0.2-1.0) Aspartate Amino Transf (AST/SGOT) 12 U/L (15-37) Alanine Aminotransferase (ALT/SGPT) 27 U/L (14-59) Alkaline Phosphatase 118 U/L (46-116) Troponin I Quantitative 0.567 ng/mL (0.000-0.055) XF-Kjb-X-Type Natriuretic Peptide 142 pg/mL (0-124) Total Protein 7.3 g/dL (6.4-8.2) Albumin 2.9 g/dL (3.4-5.0) Albumin/Globulin Ratio 0.7 (1.0-1.7) SARS-CoV-2 RNA (JAYLENE) Negative (Negative) SARS-CoV-2 Antigen (Rapid) Negative (NEGATIVE) Urine Collection Type Unknown Urine Color Joleen Urine Clarity Clear Urine pH 5.5 (<5.0-8.0) Urine Specific [place] 1.020 (1.000-1.030) Urine Protein 100 mg/dL (NEG-TRACE) Urine Glucose (UA) 250 mg/dL (NEG) Urine Ketones (Stick) Negative mg/dL (NEG) Urine Blood Large (NEG) Urine Nitrite Negative (NEG) Urine Bilirubin Negative (NEG) Urine Urobilinogen Dipstick 1.0 mg/dL (0.2 mg/dL) Urine Leukocyte Esterase Negative (NEG) Urine RBC 3-5 /HPF (0-2) Urine WBC 1-4 /HPF (0-4) Urine Squamous Epithelial Cells Mod /LPF Urine Amorphous Sediment Present /HPF Urine Bacteria 0 /HPF (0-FEW) Urine Mucus Slight /LPF O2 Saturation 92 % (92-99) Arterial Blood pH 7.21 (7.35-7.45) Arterial Blood pCO2 at Patient Temp 71 mmHg (35-46) Arterial Blood pO2 at Patient Temp 76 mmHg (75-108) Arterial Blood HCO3 28 mmol/L (21-28) Arterial Blood Base Excess -2 mmol/L (-3-3) Oxyhemoglobin 90.6 % Methemoglobin 0.7 % (0.0-1.9) Carbon Monoxide, Quantitative 1.2 % (0.0-1.9) FiO2 40% 5lnc Test 03/31/21 13:10 03/31/21 14:20 04/01/21 04:30 04/01/21 09:20 Lactic Acid Level 1.2 mmol/L (0.4-2.0) O2 Saturation 98 % (92-99) 95 % (92-99) Arterial Blood pH 7.27 (7.35-7.45) 7.37 (7.35-7.45) Arterial Blood pCO2 at Patient Temp 63 mmHg (35-46) 58 mmHg (35-46) Arterial Blood pO2 at Patient Temp 135 mmHg (75-108) 93 mmHg (75-108) Arterial Blood HCO3 28 mmol/L (21-28) 33 mmol/L (21-28) Arterial Blood Base Excess 0 mmol/L (-3-3) 6 mmol/L (-3-3) FiO2 60 bipap 60 White Blood Count 16.8 x10^3/uL (4.0-11.0) Red Blood Count 3.51 x10^6/uL (3.50-5.40) Hemoglobin 11.1 g/dL (12.0-15.5) Hematocrit 32.5 % (36.0-47.0) Mean Corpuscular Volume 93 fL (79-100) Mean Corpuscular Hemoglobin 32 pg (25-35) Mean Corpuscular Hemoglobin Concent 34 g/dL (31-37) Red Cell Distribution Width 14.8 % (11.5-14.5) Platelet Count 244 x10^3/uL (140-400) Neutrophils (%) (Auto) 93 % (31-73) Lymphocytes (%) (Auto) 4 % (24-48) Monocytes (%) (Auto) 3 % (0-9) Eosinophils (%) (Auto) 0 % (0-3) Basophils (%) (Auto) 0 % (0-3) Neutrophils # (Auto) 15.6 x10^3/uL (1.8-7.7) Lymphocytes # (Auto) 0.6 x10^3/uL (1.0-4.8) Monocytes # (Auto) 0.6 x10^3/uL (0.0-1.1) Eosinophils # (Auto) 0.0 x10^3/uL (0.0-0.7) Basophils # (Auto) 0.0 x10^3/uL (0.0-0.2) Sodium Level 139 mmol/L (136-145) Potassium Level 3.7 mmol/L (3.5-5.1) Chloride Level 103 mmol/L (98-107) Carbon Dioxide Level 35 mmol/L (21-32) Anion Gap 1 (6-14) Blood Urea Nitrogen 12 mg/dL (7-20) Creatinine 0.9 mg/dL (0.6-1.0) Estimated GFR (Cockcroft-Gault) 65.0 Glucose Level 112 mg/dL (70-99) Calcium Level 8.7 mg/dL (8.5-10.1) Test 04/01/21 13:30 O2 Saturation 96 % (92-99) Arterial Blood pH 7.37 (7.35-7.45) Arterial Blood pCO2 at Patient Temp 55 mmHg (35-46) Arterial Blood pO2 at Patient Temp 84 mmHg (75-108) Arterial Blood HCO3 31 mmol/L (21-28) Arterial Blood Base Excess 4 mmol/L (-3-3) FiO2 35 Laboratory Tests Test 04/01/21 04:30 04/01/21 09:20 04/01/21 13:30 White Blood Count 16.8 x10^3/uL (4.0-11.0) Red Blood Count 3.51 x10^6/uL (3.50-5.40) Hemoglobin 11.1 g/dL (12.0-15.5) Hematocrit 32.5 % (36.0-47.0) Mean Corpuscular Volume 93 fL (79-100) Mean Corpuscular Hemoglobin 32 pg (25-35) Mean Corpuscular Hemoglobin Concent 34 g/dL (31-37) Red Cell Distribution Width 14.8 % (11.5-14.5) Platelet Count 244 x10^3/uL (140-400) Neutrophils (%) (Auto) 93 % (31-73) Lymphocytes (%) (Auto) 4 % (24-48) Monocytes (%) (Auto) 3 % (0-9) Eosinophils (%) (Auto) 0 % (0-3) Basophils (%) (Auto) 0 % (0-3) Neutrophils # (Auto) 15.6 x10^3/uL (1.8-7.7) Lymphocytes # (Auto) 0.6 x10^3/uL (1.0-4.8) Monocytes # (Auto) 0.6 x10^3/uL (0.0-1.1) Eosinophils # (Auto) 0.0 x10^3/uL (0.0-0.7) Basophils # (Auto) 0.0 x10^3/uL (0.0-0.2) Sodium Level 139 mmol/L (136-145) Potassium Level 3.7 mmol/L (3.5-5.1) Chloride Level 103 mmol/L (98-107) Carbon Dioxide Level 35 mmol/L (21-32) Anion Gap 1 (6-14) Blood Urea Nitrogen 12 mg/dL (7-20) Creatinine 0.9 mg/dL (0.6-1.0) Estimated GFR (Cockcroft-Gault) 65.0 Glucose Level 112 mg/dL (70-99) Calcium Level 8.7 mg/dL (8.5-10.1) O2 Saturation 95 % (92-99) 96 % (92-99) Arterial Blood pH 7.37 (7.35-7.45) 7.37 (7.35-7.45) Arterial Blood pCO2 at Patient Temp 58 mmHg (35-46) 55 mmHg (35-46) Arterial Blood pO2 at Patient Temp 93 mmHg (75-108) 84 mmHg (75-108) Arterial Blood HCO3 33 mmol/L (21-28) 31 mmol/L (21-28) Arterial Blood Base Excess 6 mmol/L (-3-3) 4 mmol/L (-3-3) FiO2 60 35 Images Images Chest x-ray as above. Assessment/Plan Assessment/Plan 1. Acute respiratory failure. Now on CPAP. Has been evaluated and treated by the pulmonary service. Possible component of heart failure. Will mildly diuresis and monitor lab. We will check an echocardiogram. 2. Cellulitis with possible sepsis. Patient has been started on IV antib iotics. Continue close monitoring. 3. Minimal elevation of troponin at 0.567. EKG shows no acute ischemic changes. Will trend troponin. Echocardiogram as above. 4. Morbid obesity. PAOLO ALANIZ MD Apr 01, 2021 15:56
[2021-04-01] MEDS ORDERED: FUROSEMIDE 40 MG/4 ML VIAL. IVP ONE (16:30)
[2021-04-01 19:05] VITALS: BP 130/98
[2021-04-01] MEDS ORDERED: MORPHINE SULFATE 2 MG/ML INJ. IV PRN (21:00)
[2021-04-01] MEDS: LACTOBACILLUS RHAMNOSUS GG 1 CAPSULE. PO SCH (21:11)
[2021-04-01] MEDS: LINEZOLID 600 MG TABLET PO SCH (21:11)
[2021-04-01 22:22] VITALS: BP 131/63
--- NOTE | 2021-04-02 00:38 | CONS ---
DATE OF CONSULTATION: 04/01/2021 REQUESTING PHYSICIAN: Dr. Harrison. REASON FOR CONSULTATION: Leg cellulitis. HISTORY OF PRESENT ILLNESS: This is a 55-year-old female who came in with shortness of breath. The patient has been running fever. The patient has extensive redness on the right leg as well as two wounds with necrotic and purulent drainage. The patient had fever up to 102.7, white count up to 18.6 and the patient has been put on vancomycin and Zosyn. The patient denies any nausea, vomiting, or diarrhea. Denies any chest pain, shortness of breath, or abdominal pain. She says she is feeling better, although she could not tolerate BiPAP and so she is on a normal nasal cannula and she says she is feeling better. PAST MEDICAL HISTORY: Positive for hypertension, hyperlipidemia, COPD, arthritis, obesity, endometriosis, and polycystic ovarian disease. Has had appendicectomy, and knee surgery. SOCIAL HISTORY: Positive for smoking. No alcohol use or drug use. ALLERGIES: LISTED ALLERGIC TO PENICILLIN, SULFA AND TETRACYCLINE. CURRENT MEDICATIONS: The patient is on Zosyn and vancomycin has been discontinued. REVIEW OF SYSTEMS: As in HPI. All other systems reviewed are negative. PHYSICAL EXAMINATION: GENERAL: Alert and oriented female, not in any distress. VITAL SIGNS: Stable. Temperature 100.7, pulse 91, respirations 20, and blood pressure 198/51. T-max is 102.7. HEENT: NAD. NECK: Supple, no JVP, no lymphadenopathy. LUNGS: Clear. HEART: S1, S2 regular. ABDOMEN: Soft and nontender, no organomegaly. EXTREMITIES: Rather large. Right leg has a necrotic ulcer with purulent drainage in the front of the lower villalpando as well as on the back side of the leg and extensive erythema involving the leg going up to the distal thigh. NEUROLOGIC: The patient is alert, awake, and appropriate. No focal neurologic deficit. LABORATORY DATA: White count is 18,000. BUN and creatinine is normal. Urinalysis unremarkable. Blood culture is pending. IMPRESSION: 1. Extensive right lower extremity cellulitis. 2. Right lower extremity two infected ulcers. 3. Fever. 4. Leukocytosis. 5. Super morbid obesity. 6. Chronic obstructive pulmonary disease. 7. Hypertension. RECOMMENDATIONS: Recommend continue Zosyn. Change vancomycin to Zyvox, can be p.o. Supportive care, and we will continue to follow. Thank you very much, Dr. Harrison, for giving me opportunity to participate in this patient's care. ARISTEO/TANA/JOSH DR: ARISTEO/latia TID: [id number]
[2021-04-02 02:53] VITALS: BP 162/74
[2021-04-02 02:59] LABS: BASO % 0 % (0-3); EOS % 0 % (0-3); HEMATOCRIT 30.6 % (36.0-47.0); HEMOGLOBIN 10.2 g/dL (12.0-15.5); LYMPH # 0.7 x10^3/uL (1.0-4.8); LYMPH % 5 % (24-48); MEAN CORPUSCULAR HEMOGLOBIN 31 pg (25-35); MEAN CORPUSCULAR HGB CONC 33 g/dL (31-37); MEAN CORPUSCULAR VOLUME 92 fL (79-100); MONO # 0.7 x10^3/uL (0.0-1.1); MONO % 5 % (0-9); NEUT # 11.6 x10^3/uL (1.8-7.7); NEUT % 89 % (31-73); PLATELET COUNT 232 x10^3/uL (140-400); RED BLOOD COUNT 3.32 x10^6/uL (3.50-5.40); RED CELL DISTRIBUTION WIDTH 14.4 % (11.5-14.5)
[2021-04-02 03:10] LABS: CALCIUM 8.6 mg/dL (8.5-10.1); CREATININE 1.2 mg/dL (0.6-1.0); GFR 46.6; POTASSIUM 3.3 mmol/L (3.5-5.1)
[2021-04-02 06:02] VITALS: BP 136/64
[2021-04-02 06:02] LABS: CHOLESTEROL/HDL RATIO 5.6
[2021-04-02] MEDS: PIPERACILLIN/TAZOBACTAM 3.375 GM in IV NORMAL SALINE 50ML 50 ML IV SCH ×5 (06:06→23:09)
[2021-04-02] MEDS: hydroCHLOROthiazide 12.5 MG CAPSULE PO SCH (09:14)
[2021-04-02] MEDS: LINEZOLID 600 MG TABLET PO SCH ×2 (09:14→20:24)
[2021-04-02] MEDS: LOSARTAN POTASSIUM 50 MG TABLET. PO SCH (09:14)
[2021-04-02] MEDS: PANTOPRAZOLE 40 MG TABLET.DR. PO SCH (09:15)
[2021-04-02] MEDS: ATORVASTATIN CALCIUM 20 MG TABLET PO SCH (09:15)
[2021-04-02] MEDS: LACTOBACILLUS RHAMNOSUS GG 1 CAPSULE. PO SCH ×2 (09:15→20:24)
[2021-04-02] MEDS: HEPARIN 25,000UTS/250ML PREMIX 250 ML IV PRN (09:28)
--- NOTE | 2021-04-02 10:45 | PDOC ---
PULMONARY PROGRESS NOTES DATE: 04/02/21 TIME: 10:43 Subjective Patient remained on BiPAP all night. Arterial blood gases much better. She is fully awake. Vitals Vital Signs Date Time Temp Pulse Resp B/P (MAP) Pulse Ox O2 Delivery O2 Flow Rate FiO2 04/02/21 09:14 103 04/02/21 07:16 95 BiPAP/CPAP 04/02/21 06:02 98.4 24 136/64 (88) 2.0 98.4 General: Alert, No acute distress Lungs: Clear Cardiovascular: S1 Abdomen: Soft, Other (Marked obesity.) Extremities: Other (Right lower extremity cellulitis.) Labs Laboratory Tests Test 03/31/21 12:33 03/31/21 13:10 03/31/21 14:20 04/01/21 04:30 O2 Saturation 92 % (92-99) 98 % (92-99) Arterial Blood pH 7.21 (7.35-7.45) 7.27 (7.35-7.45) Arterial Blood pCO2 at Patient Temp 71 mmHg (35-46) 63 mmHg (35-46) Arterial Blood pO2 at Patient Temp 76 mmHg (75-108) 135 mmHg (75-108) Arterial Blood HCO3 28 mmol/L (21-28) 28 mmol/L (21-28) Arterial Blood Base Excess -2 mmol/L (-3-3) 0 mmol/L (-3-3) Oxyhemoglobin 90.6 % Methemoglobin 0.7 % (0.0-1.9) Carbon Monoxide, Quantitative 1.2 % (0.0-1.9) FiO2 40% 5lnc 60 bipap Lactic Acid Level 1.2 mmol/L (0.4-2.0) White Blood Count 16.8 x10^3/uL (4.0-11.0) Red Blood Count 3.51 x10^6/uL (3.50-5.40) Hemoglobin 11.1 g/dL (12.0-15.5) Hematocrit 32.5 % (36.0-47.0) Mean Corpuscular Volume 93 fL (79-100) Mean Corpuscular Hemoglobin 32 pg (25-35) Mean Corpuscular Hemoglobin Concent 34 g/dL (31-37) Red Cell Distribution Width 14.8 % (11.5-14.5) Platelet Count 244 x10^3/uL (140-400) Neutrophils (%) (Auto) 93 % (31-73) Lymphocytes (%) (Auto) 4 % (24-48) Monocytes (%) (Auto) 3 % (0-9) Eosinophils (%) (Auto) 0 % (0-3) Basophils (%) (Auto) 0 % (0-3) Neutrophils # (Auto) 15.6 x10^3/uL (1.8-7.7) Lymphocytes # (Auto) 0.6 x10^3/uL (1.0-4.8) Monocytes # (Auto) 0.6 x10^3/uL (0.0-1.1) Eosinophils # (Auto) 0.0 x10^3/uL (0.0-0.7) Basophils # (Auto) 0.0 x10^3/uL (0.0-0.2) Sodium Level 139 mmol/L (136-145) Potassium Level 3.7 mmol/L (3.5-5.1) Chloride Level 103 mmol/L (98-107) Carbon Dioxide Level 35 mmol/L (21-32) Anion Gap 1 (6-14) Blood Urea Nitrogen 12 mg/dL (7-20) Creatinine 0.9 mg/dL (0.6-1.0) Estimated GFR (Cockcroft-Gault) 65.0 Glucose Level 112 mg/dL (70-99) Calcium Level 8.7 mg/dL (8.5-10.1) Test 04/01/21 09:20 04/01/21 13:30 04/02/21 02:00 04/02/21 09:35 O2 Saturation 95 % (92-99) 96 % (92-99) Arterial Blood pH 7.37 (7.35-7.45) 7.37 (7.35-7.45) Arterial Blood pCO2 at Patient Temp 58 mmHg (35-46) 55 mmHg (35-46) Arterial Blood pO2 at Patient Temp 93 mmHg (75-108) 84 mmHg (75-108) Arterial Blood HCO3 33 mmol/L (21-28) 31 mmol/L (21-28) Arterial Blood Base Excess 6 mmol/L (-3-3) 4 mmol/L (-3-3) FiO2 60 35 White Blood Count 13.0 x10^3/uL (4.0-11.0) Red Blood Count 3.32 x10^6/uL (3.50-5.40) Hemoglobin 10.2 g/dL (12.0-15.5) Hematocrit 30.6 % (36.0-47.0) Mean Corpuscular Volume 92 fL (79-100) Mean Corpuscular Hemoglobin 31 pg (25-35) Mean Corpuscular Hemoglobin Concent 33 g/dL (31-37) Red Cell Distribution Width 14.4 % (11.5-14.5) Platelet Count 232 x10^3/uL (140-400) Neutrophils (%) (Auto) 89 % (31-73) Lymphocytes (%) (Auto) 5 % (24-48) Monocytes (%) (Auto) 5 % (0-9) Eosinophils (%) (Auto) 0 % (0-3) Basophils (%) (Auto) 0 % (0-3) Neutrophils # (Auto) 11.6 x10^3/uL (1.8-7.7) Lymphocytes # (Auto) 0.7 x10^3/uL (1.0-4.8) Monocytes # (Auto) 0.7 x10^3/uL (0.0-1.1) Eosinophils # (Auto) 0.0 x10^3/uL (0.0-0.7) Basophils # (Auto) 0.0 x10^3/uL (0.0-0.2) Sodium Level 136 mmol/L (136-145) Potassium Level 3.3 mmol/L (3.5-5.1) Chloride Level 98 mmol/L (98-107) Carbon Dioxide Level 35 mmol/L (21-32) Anion Gap 3 (6-14) Blood Urea Nitrogen 15 mg/dL (7-20) Creatinine 1.2 mg/dL (0.6-1.0) Estimated GFR (Cockcroft-Gault) 46.6 Glucose Level 103 mg/dL (70-99) Calcium Level 8.6 mg/dL (8.5-10.1) Troponin I Quantitative 2.903 ng/mL (0.000-0.055) 2.218 ng/mL (0.000-0.055) Triglycerides Level 126 mg/dL (0-150) Cholesterol Level 112 mg/dL (0-200) LDL Cholesterol, Calculated 67 mg/dL (0-100) VLDL Cholesterol, Calculated 25 mg/dL (0-40) Non-HDL Cholesterol Calculated 92 mg/dL (0-129) HDL Cholesterol 20 mg/dL (40-60) Cholesterol/HDL Ratio 5.6 Laboratory Tests Test 04/01/21 13:30 04/02/21 02:00 04/02/21 09:35 O2 Saturation 96 % (92-99) Arterial Blood pH 7.37 (7.35-7.45) Arterial Blood pCO2 at Patient Temp 55 mmHg (35-46) Arterial Blood pO2 at Patient Temp 84 mmHg (75-108) Arterial Blood HCO3 31 mmol/L (21-28) Arterial Blood Base Excess 4 mmol/L (-3-3) FiO2 35 White Blood Count 13.0 x10^3/uL (4.0-11.0) Red Blood Count 3.32 x10^6/uL (3.50-5.40) Hemoglobin 10.2 g/dL (12.0-15.5) Hematocrit 30.6 % (36.0-47.0) Mean Corpuscular Volume 92 fL (79-100) Mean Corpuscular Hemoglobin 31 pg (25-35) Mean Corpuscular Hemoglobin Concent 33 g/dL (31-37) Red Cell Distribution Width 14.4 % (11.5-14.5) Platelet Count 232 x10^3/uL (140-400) Neutrophils (%) (Auto) 89 % (31-73) Lymphocytes (%) (Auto) 5 % (24-48) Monocytes (%) (Auto) 5 % (0-9) Eosinophils (%) (Auto) 0 % (0-3) Basophils (%) (Auto) 0 % (0-3) Neutrophils # (Auto) 11.6 x10^3/uL (1.8-7.7) Lymphocytes # (Auto) 0.7 x10^3/uL (1.0-4.8) Monocytes # (Auto) 0.7 x10^3/uL (0.0-1.1) Eosinophils # (Auto) 0.0 x10^3/uL (0.0-0.7) Basophils # (Auto) 0.0 x10^3/uL (0.0-0.2) Sodium Level 136 mmol/L (136-145) Potassium Level 3.3 mmol/L (3.5-5.1) Chloride Level 98 mmol/L (98-107) Carbon Dioxide Level 35 mmol/L (21-32) Anion Gap 3 (6-14) Blood Urea Nitrogen 15 mg/dL (7-20) Creatinine 1.2 mg/dL (0.6-1.0) Estimated GFR (Cockcroft-Gault) 46.6 Glucose Level 103 mg/dL (70-99) Calcium Level 8.6 mg/dL (8.5-10.1) Troponin I Quantitative 2.903 ng/mL (0.000-0.055) 2.218 ng/mL (0.000-0.055) Triglycerides Level 126 mg/dL (0-150) Cholesterol Level 112 mg/dL (0-200) LDL Cholesterol, Calculated 67 mg/dL (0-100) VLDL Cholesterol, Calculated 25 mg/dL (0-40) Non-HDL Cholesterol Calculated 92 mg/dL (0-129) HDL Cholesterol 20 mg/dL (40-60) Cholesterol/HDL Ratio 5.6 Medications Active Scripts Medications Dose Route/Sig Max Daily Dose Days Date Category Oxycodone Hcl 5 Mg Capsule 1 Cap PO QID PRN 10/28/17 Rx Levaquin (Levofloxacin) 750 Mg Tablet 750 Mg PO DAILY06 04/06/16 Rx Benicar Hct 40-12.5 Mg Tablet (Olmesartan/Hydrochlorothiazide) 1 Each Tablet 1 Tab PO DAILY 03/30/15 Reported Lipitor (Atorvastatin Calcium) 20 Mg Tablet 1 Tab PO DAILY 03/30/15 Reported Proventil Hfa Inhaler (Albuterol Sulfate) 6.7 Gm Hfa.aer.ad 1-2 Puff IH PRN PRN 03/30/15 Reported Impression . IMPRESSION: 1. Acute on chronic hypoxic and hypercapnic respiratory failure, likely secondary to right heart failure versus left heart failure and could be combined heart failure. Clinically, less likely pneumonia. Clinically, less likely COVID. Rapid test for COVID is negative. 2. Underlying obstructive sleep apnea along with obesity hypoventilation syndrome with cor pulmonale. 3. Mildly increased troponin. 4. Mildly increased lactic acid from increased work of breathing, now improved. 5. Abnormal chest x-ray with bilateral interstitial infiltrates, likely congestive heart failure. 6. Right lower extremity cellulitis. Plan . 1. Patient is already blood gases have improved with BiPAP. At this time I will discontinue BiPAP during the day and use Venturi mask. We will avoid hyperoxia. BiPAP nightly. 2. Follow ABGs as needed. 3. Diuresis. 4. Obtain echocardiogram. 5. I have discontinued narcotics and benzodiazepines. 6. Continue nebulizer. 7. Smoking cessation counseling provided. 8. Discussed with RN and respiratory therapist. FELIPE HOUSE MD Apr 02, 2021 10:45
[2021-04-02 11:00] VITALS: BP 96/50
--- NOTE | 2021-04-02 11:41 | PDOC ---
Infectious Disease Note Subjective Subjective Patient is feeling about the same as the leg pain. ROS ROS No nausea vomiting diarrhea chest pain fever has improved Vital Sign Vital Signs Vital Signs Date Time Temp Pulse Resp B/P (MAP) Pulse Ox O2 Delivery O2 Flow Rate FiO2 04/02/21 09:14 103 04/02/21 07:16 95 BiPAP/CPAP 04/02/21 06:02 98.4 24 136/64 (88) 2.0 98.4 Physical Exam PHYSICAL EXAM GENERAL: Alert and oriented female, not in any distress. VITAL SIGNS: Stable HEENT: NAD. NECK: Supple, no JVP, no lymphadenopathy. LUNGS: Clear. HEART: S1, S2 regular. ABDOMEN: Soft and nontender, no organomegaly. EXTREMITIES: Rather large. Right leg has a necrotic ulcer with purulent drainage in the front of the lower villalpando as well as on the back side of the leg and extensive erythema involving the leg going up to the distal thigh. NEUROLOGIC: The patient is alert, awake, and appropriate. No focal neurologic deficit. Labs Lab Laboratory Tests Test 04/01/21 13:30 04/02/21 02:00 04/02/21 09:35 O2 Saturation 96 % (92-99) Arterial Blood pH 7.37 (7.35-7.45) Arterial Blood pCO2 at Patient Temp 55 mmHg (35-46) Arterial Blood pO2 at Patient Temp 84 mmHg (75-108) Arterial Blood HCO3 31 mmol/L (21-28) Arterial Blood Base Excess 4 mmol/L (-3-3) FiO2 35 White Blood Count 13.0 x10^3/uL (4.0-11.0) Red Blood Count 3.32 x10^6/uL (3.50-5.40) Hemoglobin 10.2 g/dL (12.0-15.5) Hematocrit 30.6 % (36.0-47.0) Mean Corpuscular Volume 92 fL (79-100) Mean Corpuscular Hemoglobin 31 pg (25-35) Mean Corpuscular Hemoglobin Concent 33 g/dL (31-37) Red Cell Distribution Width 14.4 % (11.5-14.5) Platelet Count 232 x10^3/uL (140-400) Neutrophils (%) (Auto) 89 % (31-73) Lymphocytes (%) (Auto) 5 % (24-48) Monocytes (%) (Auto) 5 % (0-9) Eosinophils (%) (Auto) 0 % (0-3) Basophils (%) (Auto) 0 % (0-3) Neutrophils # (Auto) 11.6 x10^3/uL (1.8-7.7) Lymphocytes # (Auto) 0.7 x10^3/uL (1.0-4.8) Monocytes # (Auto) 0.7 x10^3/uL (0.0-1.1) Eosinophils # (Auto) 0.0 x10^3/uL (0.0-0.7) Basophils # (Auto) 0.0 x10^3/uL (0.0-0.2) Sodium Level 136 mmol/L (136-145) Potassium Level 3.3 mmol/L (3.5-5.1) Chloride Level 98 mmol/L (98-107) Carbon Dioxide Level 35 mmol/L (21-32) Anion Gap 3 (6-14) Blood Urea Nitrogen 15 mg/dL (7-20) Creatinine 1.2 mg/dL (0.6-1.0) Estimated GFR (Cockcroft-Gault) 46.6 Glucose Level 103 mg/dL (70-99) Calcium Level 8.6 mg/dL (8.5-10.1) Troponin I Quantitative 2.903 ng/mL (0.000-0.055) 2.218 ng/mL (0.000-0.055) Triglycerides Level 126 mg/dL (0-150) Cholesterol Level 112 mg/dL (0-200) LDL Cholesterol, Calculated 67 mg/dL (0-100) VLDL Cholesterol, Calculated 25 mg/dL (0-40) Non-HDL Cholesterol Calculated 92 mg/dL (0-129) HDL Cholesterol 20 mg/dL (40-60) Cholesterol/HDL Ratio 5.6 Objective Assessment IMPRESSION: 1. Extensive right lower extremity cellulitis. 2. Right lower extremity two infected ulcers. 3. Fever. 4. Leukocytosis. 5. Super morbid obesity. 6. Chronic obstructive pulmonary disease. 7. Hypertension. Plan Plan of Care Continue antibiotics Continue supportive care PT OT Need weight loss BRISA HAYS MD Apr 02, 2021 11:41
--- NOTE | 2021-04-02 12:12 | PDOC ---
[facility] PROGRESS NOTE Date of Service DOS: DATE: 04/02/21 TIME: 12:10 Chief Complaint Chief Complaint Sepsis Right lower extremity cellulitis with ulcerations Acute on chronic hypoxic and hypercapnic respiratory failure Bilateral bibasilar pneumonia, possible gram-negative organism, possible aspiration MINA Cor pulmonale Elevated troponins MAURA due to vasomotor nephropathy Lactic acidemia Super super morbid obesity Anemia of chronic disease Severe protein malnutrition Appreciate pulmonary and surgery recommendationscontinue BiPAP and O2 supplementation. Repeat ABG. Pending cardiology evaluation Pending ID evaluation Continue empiric IV antibiotics Lovenox DVT prophylaxis Protonix GI prophylaxis ADA diet CODE STATUS full Discussed with RN and SW Disposition inpatient management as above DPOA: Designated History of Present Illness History of Present Illness 55-year-old female presents with severe shortness of breath. It has been occurring for a couple of weeks. It got particularly bad this morning. She came in by ambulance. She has lower extremity edema. She also was hypoxic with a sat of 71% on 6 liters. She is also tachycardic, appears to be septic. 04/01/2021 No acute events overnight. Patient continues to be on BiPAP and is saturating 96% on 60% FiO2. This will be titrated down to 40% per pulmonology pending further ABG. Fever overnight with T-max of 102.7. Patient seen and examined bedside with altered mental status. But she is able to keep the BiPAP on without agitation. However patient does require some sedatives such as Ativan to help her keep the mask on. Patient's chart, labs, images were reviewed and discussed with RN A total of 35 minutes of critical care time was spent in reviewing chart, labs, and images. Discussed with RN and SW. 04/02/2021 No acute events overnight. Patient did have her troponins increased to 2.9. Heparin drip was started. Patient is actually more alert and awake and was able to maintain O2 saturations off of BiPAP. We will now just start BiPAP only nocturnally per pulmonology. Repeat ABG as needed. Pending cardiology evaluation. Patient's chart, labs, images were reviewed and discussed with RN A total of 33 minutes of critical care time was spent in reviewing chart, labs, and images. Discussed with RN and SW. Vitals/I&O Vitals/I&O: Vital Signs Date Time Temp Pulse Resp B/P (MAP) Pulse Ox O2 Delivery O2 Flow Rate FiO2 04/02/21 09:14 103 04/02/21 07:16 95 BiPAP/CPAP 04/02/21 06:02 98.4 24 136/64 (88) 2.0 98.4 I & O 04/01/21 04/01/21 04/02/21 15:00 23:00 07:00 Intake Total 100 ml 1150 ml 0 ml Output Total 800 ml 1300 ml 1900 ml Balance -700 ml -150 ml -1900 ml Physical Exam Physical Exam: GENERAL: Alert and oriented female, not in any distress. VITAL SIGNS: Stable HEENT: NAD. NECK: Supple, no JVP, no lymphadenopathy. LUNGS: Clear. HEART: S1, S2 regular. ABDOMEN: Soft and nontender, no organomegaly. EXTREMITIES: Rather large. Right leg has a necrotic ulcer with purulent drainage in the front of the lower villalpando as well as on the back side of the leg and extensive erythema involving the leg going up to the distal thigh. NEUROLOGIC: The patient is alert, awake, and appropriate. No focal neurologic deficit. General: moderate distress Heart: Other (Tachycardia) Lungs: Clear Abdomen: Normal bowel sounds Extremities: No clubbing Labs Labs: Laboratory Tests Test 04/01/21 13:30 04/02/21 02:00 04/02/21 09:35 O2 Saturation 96 % (92-99) Arterial Blood pH 7.37 (7.35-7.45) Arterial Blood pCO2 at Patient Temp 55 mmHg (35-46) Arterial Blood pO2 at Patient Temp 84 mmHg (75-108) Arterial Blood HCO3 31 mmol/L (21-28) Arterial Blood Base Excess 4 mmol/L (-3-3) FiO2 35 White Blood Count 13.0 x10^3/uL (4.0-11.0) Red Blood Count 3.32 x10^6/uL (3.50-5.40) Hemoglobin 10.2 g/dL (12.0-15.5) Hematocrit 30.6 % (36.0-47.0) Mean Corpuscular Volume 92 fL (79-100) Mean Corpuscular Hemoglobin 31 pg (25-35) Mean Corpuscular Hemoglobin Concent 33 g/dL (31-37) Red Cell Distribution Width 14.4 % (11.5-14.5) Platelet Count 232 x10^3/uL (140-400) Neutrophils (%) (Auto) 89 % (31-73) Lymphocytes (%) (Auto) 5 % (24-48) Monocytes (%) (Auto) 5 % (0-9) Eosinophils (%) (Auto) 0 % (0-3) Basophils (%) (Auto) 0 % (0-3) Neutrophils # (Auto) 11.6 x10^3/uL (1.8-7.7) Lymphocytes # (Auto) 0.7 x10^3/uL (1.0-4.8) Monocytes # (Auto) 0.7 x10^3/uL (0.0-1.1) Eosinophils # (Auto) 0.0 x10^3/uL (0.0-0.7) Basophils # (Auto) 0.0 x10^3/uL (0.0-0.2) Sodium Level 136 mmol/L (136-145) Potassium Level 3.3 mmol/L (3.5-5.1) Chloride Level 98 mmol/L (98-107) Carbon Dioxide Level 35 mmol/L (21-32) Anion Gap 3 (6-14) Blood Urea Nitrogen 15 mg/dL (7-20) Creatinine 1.2 mg/dL (0.6-1.0) Estimated GFR (Cockcroft-Gault) 46.6 Glucose Level 103 mg/dL (70-99) Calcium Level 8.6 mg/dL (8.5-10.1) Troponin I Quantitative 2.903 ng/mL (0.000-0.055) 2.218 ng/mL (0.000-0.055) Triglycerides Level 126 mg/dL (0-150) Cholesterol Level 112 mg/dL (0-200) LDL Cholesterol, Calculated 67 mg/dL (0-100) VLDL Cholesterol, Calculated 25 mg/dL (0-40) Non-HDL Cholesterol Calculated 92 mg/dL (0-129) HDL Cholesterol 20 mg/dL (40-60) Cholesterol/HDL Ratio 5.6 Assessment and Plan Assessmemt and Plan Problems Medical Problems: (1) Cellulitis of lower extremity Status: Acute (2) Respiratory failure with hypoxia Status: Acute (3) Sepsis Status: Acute Comment Review of Relevant I have reviewed the following items sunitha (where applicable) has been applied. Medications: Current Medications Medications (Trade) Dose Ordered Sig/Donavan Route PRN Reason Start Time Stop Time Status Last Admin Dose Admin Enoxaparin Sodium (Lovenox 30mg Syringe) 30 mg 1X ONCE SQ 04/01/21 13:00 04/01/21 13:01 DC 04/01/21 14:08 Pantoprazole Sodium (Protonix) 40 mg DAILYAC PO 04/01/21 14:00 04/02/21 09:15 Piperacillin Sod/ Tazobactam Sod 3.375 gm/Sodium Chloride 50 ml @ 100 mls/hr Q6HRS IV 04/01/21 13:30 04/02/21 06:06 Lactobacillus Rhamnosus (Culturelle) 1 cap BID PO 04/01/21 21:00 04/02/21 09:15 Linezolid (Zyvox) 600 mg BID PO 04/01/21 21:00 04/02/21 09:14 Furosemide (Lasix) 40 mg 1X ONCE IVP 04/01/21 16:30 04/01/21 16:31 DC 04/01/21 17:05 Morphine Sulfate (Morphine Sulfate) 2 mg PRN Q2HR PRN IV SEVERE PAIN 7-10 04/01/21 21:00 04/01/21 21:11 Heparin Sodium/ Dextrose 250 ml @ 10 mls/hr CONT PRN IV PER PROTOCOL 04/02/21 08:30 04/02/21 09:28 Justifications for Admission Other Justification MARIALUISA RIVAS MD Apr 02, 2021 12:12
[2021-04-02] MEDS: ACETAMINOPHEN 325 MG TABLET. PO PRN ×2 (12:34→20:24)
--- NOTE | 2021-04-02 14:27 | PDOC ---
PROGRESS NOTES Date of Service DATE: 04/02/21 TIME: 14:25 Subjective Subjective Patient seen and examined Objective Objective Vital Signs Date Time Temp Pulse Resp B/P (MAP) Pulse Ox O2 Delivery O2 Flow Rate FiO2 04/02/21 11:00 101.4 103 28 96/50 (65) 91 Venturi Mask 101.4 04/02/21 08:15 15.0 Intake and Output 04/02/21 07:00 Intake Total 1250 ml Output Total 4000 ml Balance -2750 ml Intake Oral 100 ml IV Total 1150 ml Output Urine Total 4000 ml Physical Exam Abdomen: Normal bowel sounds Heart: Regular rate General: mild distress Lungs: Other (Mildly decreased breath sounds) Assessment Assessment Problems Medical Problems: (1) Cellulitis of lower extremity Status: Acute (2) Respiratory failure with hypoxia Status: Acute (3) Sepsis Status: Acute 1. Acute respiratory failure. Improved today. Possible component of heart failure. Monitoring lab. Echo today. Followed by the pulmonary service. 2. Cellulitis with possible sepsis. Patient has been started on IV antibiotics. Followed by ID. 3. Minimal elevation of troponin at 0.567. EKG shows no acute ischemic changes. Troponin increased to 2.903 and 2.218. Rhythm stable. Probable demand ischemia. Continue medical treatment. Echo pending. Ischemia evaluation based on clinical course. 4. Morbid obesity. Comment Review of Relevant I have reviewed the following items sunitha (where applicable) has been applied. Labs Laboratory Tests Test 04/01/21 04:30 04/01/21 09:20 04/01/21 13:30 04/02/21 02:00 White Blood Count 16.8 x10^3/uL (4.0-11.0) 13.0 x10^3/uL (4.0-11.0) Red Blood Count 3.51 x10^6/uL (3.50-5.40) 3.32 x10^6/uL (3.50-5.40) Hemoglobin 11.1 g/dL (12.0-15.5) 10.2 g/dL (12.0-15.5) Hematocrit 32.5 % (36.0-47.0) 30.6 % (36.0-47.0) Mean Corpuscular Volume 93 fL (79-100) 92 fL (79-100) Mean Corpuscular Hemoglobin 32 pg (25-35) 31 pg (25-35) Mean Corpuscular Hemoglobin Concent 34 g/dL (31-37) 33 g/dL (31-37) Red Cell Distribution Width 14.8 % (11.5-14.5) 14.4 % (11.5-14.5) Platelet Count 244 x10^3/uL (140-400) 232 x10^3/uL (140-400) Neutrophils (%) (Auto) 93 % (31-73) 89 % (31-73) Lymphocytes (%) (Auto) 4 % (24-48) 5 % (24-48) Monocytes (%) (Auto) 3 % (0-9) 5 % (0-9) Eosinophils (%) (Auto) 0 % (0-3) 0 % (0-3) Basophils (%) (Auto) 0 % (0-3) 0 % (0-3) Neutrophils # (Auto) 15.6 x10^3/uL (1.8-7.7) 11.6 x10^3/uL (1.8-7.7) Lymphocytes # (Auto) 0.6 x10^3/uL (1.0-4.8) 0.7 x10^3/uL (1.0-4.8) Monocytes # (Auto) 0.6 x10^3/uL (0.0-1.1) 0.7 x10^3/uL (0.0-1.1) Eosinophils # (Auto) 0.0 x10^3/uL (0.0-0.7) 0.0 x10^3/uL (0.0-0.7) Basophils # (Auto) 0.0 x10^3/uL (0.0-0.2) 0.0 x10^3/uL (0.0-0.2) Sodium Level 139 mmol/L (136-145) 136 mmol/L (136-145) Potassium Level 3.7 mmol/L (3.5-5.1) 3.3 mmol/L (3.5-5.1) Chloride Level 103 mmol/L (98-107) 98 mmol/L (98-107) Carbon Dioxide Level 35 mmol/L (21-32) 35 mmol/L (21-32) Anion Gap 1 (6-14) 3 (6-14) Blood Urea Nitrogen 12 mg/dL (7-20) 15 mg/dL (7-20) Creatinine 0.9 mg/dL (0.6-1.0) 1.2 mg/dL (0.6-1.0) Estimated GFR (Cockcroft-Gault) 65.0 46.6 Glucose Level 112 mg/dL (70-99) 103 mg/dL (70-99) Calcium Level 8.7 mg/dL (8.5-10.1) 8.6 mg/dL (8.5-10.1) O2 Saturation 95 % (92-99) 96 % (92-99) Arterial Blood pH 7.37 (7.35-7.45) 7.37 (7.35-7.45) Arterial Blood pCO2 at Patient Temp 58 mmHg (35-46) 55 mmHg (35-46) Arterial Blood pO2 at Patient Temp 93 mmHg (75-108) 84 mmHg (75-108) Arterial Blood HCO3 33 mmol/L (21-28) 31 mmol/L (21-28) Arterial Blood Base Excess 6 mmol/L (-3-3) 4 mmol/L (-3-3) FiO2 60 35 Troponin I Quantitative 2.903 ng/mL (0.000-0.055) Triglycerides Level 126 mg/dL (0-150) Cholesterol Level 112 mg/dL (0-200) LDL Cholesterol, Calculated 67 mg/dL (0-100) VLDL Cholesterol, Calculated 25 mg/dL (0-40) Non-HDL Cholesterol Calculated 92 mg/dL (0-129) HDL Cholesterol 20 mg/dL (40-60) Cholesterol/HDL Ratio 5.6 Test 04/02/21 09:35 Troponin I Quantitative 2.218 ng/mL (0.000-0.055) Laboratory Tests Test 04/02/21 02:00 04/02/21 09:35 White Blood Count 13.0 x10^3/uL (4.0-11.0) Red Blood Count 3.32 x10^6/uL (3.50-5.40) Hemoglobin 10.2 g/dL (12.0-15.5) Hematocrit 30.6 % (36.0-47.0) Mean Corpuscular Volume 92 fL (79-100) Mean Corpuscular Hemoglobin 31 pg (25-35) Mean Corpuscular Hemoglobin Concent 33 g/dL (31-37) Red Cell Distribution Width 14.4 % (11.5-14.5) Platelet Count 232 x10^3/uL (140-400) Neutrophils (%) (Auto) 89 % (31-73) Lymphocytes (%) (Auto) 5 % (24-48) Monocytes (%) (Auto) 5 % (0-9) Eosinophils (%) (Auto) 0 % (0-3) Basophils (%) (Auto) 0 % (0-3) Neutrophils # (Auto) 11.6 x10^3/uL (1.8-7.7) Lymphocytes # (Auto) 0.7 x10^3/uL (1.0-4.8) Monocytes # (Auto) 0.7 x10^3/uL (0.0-1.1) Eosinophils # (Auto) 0.0 x10^3/uL (0.0-0.7) Basophils # (Auto) 0.0 x10^3/uL (0.0-0.2) Sodium Level 136 mmol/L (136-145) Potassium Level 3.3 mmol/L (3.5-5.1) Chloride Level 98 mmol/L (98-107) Carbon Dioxide Level 35 mmol/L (21-32) Anion Gap 3 (6-14) Blood Urea Nitrogen 15 mg/dL (7-20) Creatinine 1.2 mg/dL (0.6-1.0) Estimated GFR (Cockcroft-Gault) 46.6 Glucose Level 103 mg/dL (70-99) Calcium Level 8.6 mg/dL (8.5-10.1) Troponin I Quantitative 2.903 ng/mL (0.000-0.055) 2.218 ng/mL (0.000-0.055) Triglycerides Level 126 mg/dL (0-150) Cholesterol Level 112 mg/dL (0-200) LDL Cholesterol, Calculated 67 mg/dL (0-100) VLDL Cholesterol, Calculated 25 mg/dL (0-40) Non-HDL Cholesterol Calculated 92 mg/dL (0-129) HDL Cholesterol 20 mg/dL (40-60) Cholesterol/HDL Ratio 5.6 Medications Current Medications Sodium Chloride 1,860 ml @ 1,860 mls/hr Q1H IV Last administered on 03/31/21at 12:33; Start 03/31/21 at 09:45; Stop 03/31/21 at 22:11; Status DC Sodium Chloride 500 ml @ 1,000 mls/hr PRN Q30MIN PRN IV SEE COMMENTS; Start 03/31/21 at 09:45 Vancomycin HCl (Vanco Per Pharmacy) 1 each PRN DAILY PRN MC SEE COMMENTS Last administered on 04/01/21at 10:01; Start 03/31/21 at 09:45; Stop 04/01/21 at 12:31; Status DC Levofloxacin/ Dextrose 150 ml @ 100 mls/hr 1X ONCE IV Last administered on 03/31/21at 10:03; Start 03/31/21 at 09:45; Stop 03/31/21 at 11:14; Status DC Vancomycin HCl 2 gm/Sodium Chloride 500 ml @ 250 mls/hr 1X ONCE IV Last administered on 03/31/21at 11:33; Start 03/31/21 at 10:00; Stop 03/31/21 at 11:59; Status DC Acetaminophen (Tylenol) 1,000 mg 1X ONCE PO Last administered on 03/31/21at 12:01; Start 03/31/21 at 10:30; Stop 03/31/21 at 10:31; Status DC Atorvastatin Calcium (Lipitor) 20 mg DAILY PO Last administered on 04/02/21at 09:15; Start 04/01/21 at 09:00 Non-Formulary Medication (Albuterol Sulfate (Proventil Hfa Inhaler)) . PRN PRN IH WHEEZING; Start 03/31/21 at 12:15; Status UNV Losartan Potassium (Cozaar) 100 mg DAILY PO Last administered on 04/02/21at 09:14; Start 03/31/21 at 14:00 Oxycodone HCl (Roxicodone) 5 mg PRN QID PRN PO MODERATE TO SEVERE PAIN; Start 03/31/21 at 12:30; Stop 04/01/21 at 08:21; Status DC Hydrochlorothiazide (Microzide) 12.5 mg DAILY PO Last administered on 04/02/21at 09:14; Start 03/31/21 at 14:00 Albuterol Sulfate (Ventolin Neb Soln) 2.5 mg PRN Q4HRS PRN NEB SHORTNESS OF BREATH; Start 03/31/21 at 12:30 Vancomycin HCl 2 gm/Sodium Chloride 500 ml @ 250 mls/hr Q12H IV Last administered on 04/01/21at 12:18; Start 03/31/21 at 23:30; Stop 04/01/21 at 12:27; Status DC Vancomycin HCl (Vancomycin Trough Level) 1 each 1X ONCE MC ; Start 04/01/21 at 23:00; Stop 04/01/21 at 12:34; Status DC Lorazepam (Ativan) 0.25 mg PRN Q6HRS PRN PO ANXIETY / AGITATION; Start 03/31/21 at 17:15; Stop 04/01/21 at 08:21; Status DC Morphine Sulfate (Morphine Sulfate) 2 mg PRN Q2HR PRN IV MODERATE TO SEVERE PAIN Last administered on 04/01/21at 01:50; Start 03/31/21 at 17:15; Stop 04/01/21 at 08:21; Status DC Sodium Chloride 1,000 ml @ 75 mls/hr 1X ONCE IV Last administered on 03/31/21at 22:11; Start 03/31/21 at 17:15; Stop 04/01/21 at 06:34; Status DC Acetaminophen (Tylenol) 650 mg PRN Q6HRS PRN PO MILD PAIN / TEMP > 100.3'F Last administered on 04/02/21at 12:34; Start 04/01/21 at 08:45 Piperacillin Sod/ Tazobactam Sod (Zosyn Per Pharmacy) 1 each PRN DAILY PRN MC SEE COMMENTS; Start 04/01/21 at 12:30 Enoxaparin Sodium (Lovenox 30mg Syringe) 30 mg 1X ONCE SQ Last administered on 04/01/21at 14:08; Start 04/01/21 at 13:00; Stop 04/01/21 at 13:01; Status DC Pantoprazole Sodium (Protonix) 40 mg DAILYAC PO Last administered on 04/02/21at 09:15; Start 04/01/21 at 14:00 Piperacillin Sod/ Tazobactam Sod 3.375 gm/Sodium Chloride 50 ml @ 100 mls/hr Q6HRS IV Last administered on 04/02/21at 12:34; Start 04/01/21 at 13:30 Lactobacillus Rhamnosus (Culturelle) 1 cap BID PO Last administered on 04/02/21at 09:15; Start 04/01/21 at 21:00 Linezolid (Zyvox) 600 mg BID PO Last administered on 04/02/21at 09:14; Start 04/01/21 at 21:00 Furosemide (Lasix) 40 mg 1X ONCE IVP Last administered on 04/01/21at 17:05; Start 04/01/21 at 16:30; Stop 04/01/21 at 16:31; Status DC Morphine Sulfate (Morphine Sulfate) 2 mg PRN Q2HR PRN IV SEVERE PAIN 7-10 Last administered on 04/01/21at 21:11; Start 04/01/21 at 21:00 Heparin Sodium/ Dextrose 250 ml @ 10 mls/hr CONT PRN IV PER PROTOCOL Last administered on 04/02/21at 09:28; Start 04/02/21 at 08:30 Heparin Sodium (Porcine) (Heparin Sodium) 4,300 unit PRN Q6HRS PRN IV FOR UFH LEVEL LESS THAN 0.2; Start 04/02/21 at 08:30 Active Scripts Active Oxycodone Hcl 5 Mg Capsule 1 Cap PO QID PRN Levaquin (Levofloxacin) 750 Mg Tablet 750 Mg PO DAILY06 Reported Benicar Hct 40-12.5 Mg Tablet (Olmesartan/Hydrochlorothiazide) 1 Each Tablet 1 Tab PO DAILY Lipitor (Atorvastatin Calcium) 20 Mg Tablet 1 Tab PO DAILY Proventil Hfa Inhaler (Albuterol Sulfate) 6.7 Gm Hfa.aer.ad 1-2 Puff IH PRN PRN Vitals/I & O Vital Sign - Last 24 Hours 04/01/21 04/01/21 04/01/21 04/01/21 15:00 15:15 17:46 19:05 Temp 99.2 98.3 99.2 98.3 Pulse 101 108 Resp 19 20 B/P (MAP) 145/74 (97) 130/98 (109) Pulse Ox 91 93 93 94 O2 Delivery Nasal Cannula BiPAP/CPAP BiPAP/CPAP Nasal Cannula O2 Flow Rate 2.0 2.0 04/01/21 04/01/21 04/01/21 04/01/21 19:58 21:01 21:11 21:41 Pulse Ox 93 O2 Delivery Bi-pap BiPAP/CPAP BiPAP/CPAP BiPAP/CPAP O2 Flow Rate 20.0 04/01/21 04/02/21 04/02/21 04/02/21 22:22 00:00 02:53 04:00 Temp 98.5 98.1 98.5 98.1 Pulse 114 105 Resp 22 20 B/P (MAP) 131/63 (85) 162/74 (103) Pulse Ox 95 96 94 96 O2 Delivery Nasal Cannula BiPAP/CPAP Nasal Cannula BiPAP/CPAP O2 Flow Rate 2.0 2.0 04/02/21 04/02/21 04/02/21 04/02/21 06:02 07:16 08:15 09:14 Temp 98.4 98.4 Pulse 109 103 Resp 24 B/P (MAP) 136/64 (88) Pulse Ox 92 95 O2 Delivery Nasal Cannula BiPAP/CPAP Venturi Mask O2 Flow Rate 2.0 15.0 04/02/21 11:00 Temp 101.4 101.4 Pulse 103 Resp 28 B/P (MAP) 96/50 (65) Pulse Ox 91 O2 Delivery Venturi Mask Intake and Output 04/01/21 04/01/21 04/02/21 15:00 23:00 07:00 Intake Total 100 ml 1150 ml 0 ml Output Total 800 ml 1300 ml 1900 ml Balance -700 ml -150 ml -1900 ml Justifications for Admission Other Justification PAOLO ALANIZ MD Apr 02, 2021 14:27
[2021-04-02 14:50] VITALS: BP 122/60
[2021-04-02] MEDS: HEPARIN for IV BOLUS 10,000 UNIT/10 ML VIAL. IV PRN (17:57)
[2021-04-02 19:28] VITALS: BP 147/70
[2021-04-02] MEDS ORDERED: POTASSIUM CHLORIDE 20 MEQ TABLET.ER. PO ONE (19:45)
--- NOTE | 2021-04-02 21:45 | NUR ---
ASKED TO PLACE PT ON BIPAP, SHE IS KNOWN TO ME AND HAS NOC BIPAP ORDERED, PT IS TALKING ON THE PHONE AND IS NOT READY TO GO TO BED YET. WILL CONTINUE TO WATCH AND ONCE SHR IS IN THE BED, WILL PLACE ON BIPAP.
[2021-04-02 23:04] VITALS: BP 112/56
[2021-04-03] VITALS (7 sets, daily range): BP systolic 106–178; BP diastolic 58–80
[2021-04-03] MEDS: HEPARIN for IV BOLUS 10,000 UNIT/10 ML VIAL. IV PRN ×2 (02:17→10:03)
[2021-04-03] MEDS: PIPERACILLIN/TAZOBACTAM 3.375 GM in IV NORMAL SALINE 50ML 50 ML IV SCH ×4 (05:57→22:11)
[2021-04-03 07:33] LABS: HEMOGLOBIN 10.2 g/dL (12.0-15.5); RED BLOOD COUNT 3.27 x10^6/uL (3.50-5.40); RED CELL DISTRIBUTION WIDTH 14.7 % (11.5-14.5); WHITE BLOOD COUNT 5.4 x10^3/uL (4.0-11.0)
[2021-04-03 07:53] LABS: CALCIUM 8.7 mg/dL (8.5-10.1); CREATININE 1.1 mg/dL (0.6-1.0); GFR 51.6; POTASSIUM 3.5 mmol/L (3.5-5.1)
--- NOTE | 2021-04-03 09:02 | PDOC ---
Infectious Disease Note Subjective Subjective Patient is feeling about the same as the leg pain. RENAN URRUTIA Nausea vomiting diarrhea Have a fever though she had a bunch of blankets on her Vital Sign Vital Signs Vital Signs Date Time Temp Pulse Resp B/P (MAP) Pulse Ox O2 Delivery O2 Flow Rate FiO2 04/03/21 08:50 04/03/21 02:31 2.0 Physical Exam PHYSICAL EXAM GENERAL: Alert and oriented female, not in any distress. VITAL SIGNS: Stable HEENT: NAD. NECK: Supple, no JVP, no lymphadenopathy. LUNGS: Clear. HEART: S1, S2 regular. ABDOMEN: Soft and nontender, no organomegaly. EXTREMITIES: Rather large. Right leg has a necrotic ulcer with purulent drainage in the front of the lower villalpando as well as on the back side of the leg and extensive erythema involving the leg going up to the distal thigh. NEUROLOGIC: The patient is alert, awake, and appropriate. No focal neurologic deficit. Labs Lab Laboratory Tests Test 04/02/21 09:35 04/02/21 17:05 04/03/21 01:35 04/03/21 06:05 Troponin I Quantitative 2.218 ng/mL (0.000-0.055) Heparin Anti-Xa Act, Unfractionated 0.13 IU/mL (0.30-0.70) < 0.10 IU/mL (0.30-0.70) White Blood Count 5.4 x10^3/uL (4.0-11.0) Red Blood Count 3.27 x10^6/uL (3.50-5.40) Hemoglobin 10.2 g/dL (12.0-15.5) Hematocrit 30.0 % (36.0-47.0) Mean Corpuscular Volume 92 fL (79-100) Mean Corpuscular Hemoglobin 31 pg (25-35) Mean Corpuscular Hemoglobin Concent 34 g/dL (31-37) Red Cell Distribution Width 14.7 % (11.5-14.5) Platelet Count 160 x10^3/uL (140-400) Sodium Level 133 mmol/L (136-145) Potassium Level 3.5 mmol/L (3.5-5.1) Chloride Level 96 mmol/L (98-107) Carbon Dioxide Level 34 mmol/L (21-32) Anion Gap 3 (6-14) Blood Urea Nitrogen 13 mg/dL (7-20) Creatinine 1.1 mg/dL (0.6-1.0) Estimated GFR (Cockcroft-Gault) 51.6 Glucose Level 118 mg/dL (70-99) Calcium Level 8.7 mg/dL (8.5-10.1) Objective Assessment IMPRESSION: 1. Extensive right lower extremity cellulitis. 2. Right lower extremity two infected ulcers. 3. Fever. 4. Leukocytosis. 5. Super morbid obesity. 6. Chronic obstructive pulmonary disease. 7. Hypertension. Plan Plan of Care Continue antibiotics Continue supportive care PT OT Need weight loss BRISA HAYS MD Apr 03, 2021 09:02
[2021-04-03] MEDS: ACETAMINOPHEN 325 MG TABLET. PO PRN ×2 (09:13→15:47)
[2021-04-03] MEDS: ATORVASTATIN CALCIUM 20 MG TABLET PO SCH (09:13)
[2021-04-03] MEDS: LINEZOLID 600 MG TABLET PO SCH ×2 (09:13→22:10)
[2021-04-03] MEDS: hydroCHLOROthiazide 12.5 MG CAPSULE PO SCH (09:13)
[2021-04-03] MEDS: PANTOPRAZOLE 40 MG TABLET.DR. PO SCH (09:14)
[2021-04-03] MEDS: LACTOBACILLUS RHAMNOSUS GG 1 CAPSULE. PO SCH ×2 (09:14→22:10)
[2021-04-03] MEDS: LOSARTAN POTASSIUM 50 MG TABLET. PO SCH (09:14)
--- NOTE | 2021-04-03 09:50 | CARD ---
MR#: [id number] Date of Study: 04/02/2021 Ordering Physician: PAOLO ALANIZ, Referring Physician: PAOLO ALANIZ, Tech: [employer] [facility] APPROVED REPORT EXAM: Two-dimensional and M-mode echocardiogram with Doppler and color Doppler. Other Information Quality : AverageFairHR: 101bpm Rhythm : TachycardiaTechnically limited study due to body habitus and smoking. INDICATION Dyspnea 2D DIMENSIONS Left Atrium(2D)5.4 (1.6-4.0cm)IVSd1.2 (0.7-1.1cm) Aortic Root(2D)3.3 (2.0-3.7cm)LVDd5.8 (3.9-5.9cm) PWd1.2 (0.7-1.1cm)LVDs3.0 (2.5-4.0cm) FS (%) 47.6 %SV128.0 ml LVEF(%)78.3 (>50%) Aortic Valve AoV Peak Sandro.192.2cm/sAoV VTI32.1cm AO Peak GR.14.8mmHgLVOT Peak Sandro.153.4cm/s AO Mean GR.8mmHg Mitral Valve MV E Bffrtviq956.1cm/sMV E Peak Gr.9mmHg MV DECEL [id number] A Yhotusmq627.1cm/s MV E Mean Gr.5mmHgE/A Ratio1.2 Pulmonary Valve PV Peak Qaywwkoh795.0cm/s Tricuspid Valve TR P. Vjvdzqhu368cl/sTR Peak Gr.24mmHg Pulmonary Vein S1 Fkhfvkix48.6cm/sD2 Xprnyvap99.0cm/s LEFT VENTRICLE The left ventricle is normal size. There is borderline concentric left ventricular hypertrophy. The l eft ventricular systolic function is normal and the ejection fraction is within normal range. EF 55% There is grossly normal LV segmental wall motion. Tissue Doppler imaging reveals abnormal left ventri cular diastolic dysfunction. No left ventricle thrombus noted on this study. There is no ventricular septal defect visualized. There is no left ventricular aneurysm. There is no mass noted in the left v entricle. RIGHT VENTRICLE The right ventricle is normal size. There is normal right ventricular wall thickness. The right ventr icular systolic function is normal. ATRIA The left atrium is moderately dilated. The right atrium size is normal. The interatrial septum is int act with no evidence for an atrial septal defect or patent foramen ovale as noted on 2-D or Doppler i maging. AORTIC VALVE Aortic valve is not well seen. Doppler and Color Flow revealed no significant aortic regurgitation. T here is no significant aortic valvular stenosis. There is no aortic valvular vegetation. MITRAL VALVE The mitral valve is normal in structure and function. There is no evidence of mitral valve prolapse. There is no mitral valve stenosis. Doppler and Color Flow revealed no mitral valve regurgitation note d. TRICUSPID VALVE The tricuspid valve is normal in structure and function. Doppler and Color Flow revealed trace tricus pid regurgitation. There is no tricuspid valve prolapse or vegetation. There is no tricuspid valve st enosis. PULMONIC VALVE Pulmonic valve is not well seen. Doppler and Color Flow revealed no pulmonic valvular regurgitation. There is no pulmonic valvular stenosis. GREAT VESSELS The aortic root is normal in size. The ascending aorta is normal in size. The IVC is normal in size a nd collapses >50% with inspiration. PERICARDIAL EFFUSION There is no pleural effusion. There is no evidence of significant pericardial effusion. Critical Notification Critical Value: No <Conclusion> The left ventricular systolic function is normal and the ejection fraction is within normal range. EF 55% There is grossly normal LV segmental wall motion. Technically very difficult study. Signed by : Justin Paul, Electronically Approved : 04/03/2021 09:49:34
--- NOTE | 2021-04-03 10:32 | PDOC ---
PROGRESS NOTES Date of Service: DATE: 04/03/21 TIME: 10:32 Chief Complaint Chief Complaint impression Sepsis Right lower extremity cellulitis with ulcerations Acute on chronic hypoxic and hypercapnic respiratory failure Bilateral bibasilar pneumonia, possible gram-negative organism, possible aspiration MINA Cor pulmonale Elevated troponins MAURA due to vasomotor nephropathy Lactic acidemia Super super morbid obesity Anemia of chronic disease Severe protein malnutrition \ Appreciate pulmonary and surgery recommendationscontinue BiPAP and O2 supplementation. Repeat ABG. Pending cardiology evaluation ID evaluation Continue empiric IV antibiotics Lovenox DVT prophylaxis Protonix GI prophylaxis ADA diet CODE STATUS full Discussed with RN and SW Disposition inpatient management as above DPOA: Designated History of Present Illness History of Present Illness 55-year-old female presents with severe shortness of breath. It has been occurring for a couple of weeks. It got particularly bad this morning. She came in by ambulance. She has lower extremity edema. She also was hypoxic with a sat of 71% on 6 liters. She is also tachycardic, appears to be septic. 04/01/2021 No acute events overnight. Patient continues to be on BiPAP and is saturating 96% on 60% FiO2. This will be titrated down to 40% per pulmonology pending further ABG. Fever overnight with T-max of 102.7. Patient seen and examined bedside with altered mental status. But she is able to keep the BiPAP on without agitation. However patient does require some sedatives such as Ativan to help her keep the mask on. Patient's chart, labs, images were reviewed and discussed with RN A total of 35 minutes of critical care time was spent in reviewing chart, labs, and images. Discussed with RN and SW. 04/02/2021 No acute events overnight. Patient did have her troponins increased to 2.9. Heparin drip was started. Patient is actually more alert and awake and was able to maintain O2 saturations off of BiPAP. We will now just start BiPAP only nocturnally per pulmonology. Repeat ABG as needed. Pending cardiology evaluation. Patient's chart, labs, images were reviewed and discussed with RN A total of 33 minutes of critical care time was spent in reviewing chart, labs, and images. Discussed with RN and SW. Vitals Vitals Vital Signs Date Time Temp Pulse Resp B/P (MAP) Pulse Ox O2 Delivery O2 Flow Rate FiO2 04/03/21 09:14 99 175/80 04/03/21 08:50 04/03/21 02:31 2.0 Physical Exam Physical Exam GENERAL: Alert and oriented female, not in any distress. VITAL SIGNS: Stable HEENT: NAD. NECK: Supple, no JVP, no lymphadenopathy. LUNGS: Clear. HEART: S1, S2 regular. ABDOMEN: Soft and nontender, no organomegaly. EXTREMITIES: Rather large. Right leg has a necrotic ulcer with purulent drainage in the front of the lower villalpando as well as on the back side of the leg and extensive erythema involving the leg going up to the distal thigh. NEUROLOGIC: The patient is alert, awake, and appropriate. No focal neurologic deficit. General: Alert, Cooperative, mild distress Heart: Regular rate Lungs: Clear Abdomen: Normal bowel sounds Extremities: No clubbing, No cyanosis Labs LABS PATIENT: ALBERT BROOKS ACCOUNT: [id number] : 1965 LOCATION: ER AGE: 55 SEX: F EXAM STATUS: REG ER ORD. PHYSICIAN: MACRINA LEVINE MD REASON: HYPOXIA, FEVER, SEPSIS ([id number] PNR) PROCEDURE: CHEST AP ONLY EXAM: XR CHEST 1V 03/31/2021 10:15 AM CLINICAL INDICATION: Fever, sepsis, hypoxia COMPARISON: Chest radiograph 04/04/2016 TECHNIQUE: AP view of the chest FINDINGS: Cardiac silhouette is unchanged. There are bibasilar airspace opacities. No pleural effusion or pneumothorax. No acute osseous abnormality. IMPRESSION: Bibasilar airspace opacities suspicious for pneumonia. Pulmonary edema is also possible. Electronically signed by: Corazon Rosales MD (03/31/2021 11:50 AM) [id number] DICTATED and SIGNED BY: CORAZON ROSALES MD DATE: 03/31/21 [id number] Laboratory Tests Test 04/02/21 17:05 04/03/21 01:35 04/03/21 06:05 04/03/21 08:25 Heparin Anti-Xa Act, Unfractionated 0.13 IU/mL (0.30-0.70) < 0.10 IU/mL (0.30-0.70) 0.13 IU/mL (0.30-0.70) White Blood Count 5.4 x10^3/uL (4.0-11.0) Red Blood Count 3.27 x10^6/uL (3.50-5.40) Hemoglobin 10.2 g/dL (12.0-15.5) Hematocrit 30.0 % (36.0-47.0) Mean Corpuscular Volume 92 fL (79-100) Mean Corpuscular Hemoglobin 31 pg (25-35) Mean Corpuscular Hemoglobin Concent 34 g/dL (31-37) Red Cell Distribution Width 14.7 % (11.5-14.5) Platelet Count 160 x10^3/uL (140-400) Sodium Level 133 mmol/L (136-145) Potassium Level 3.5 mmol/L (3.5-5.1) Chloride Level 96 mmol/L (98-107) Carbon Dioxide Level 34 mmol/L (21-32) Anion Gap 3 (6-14) Blood Urea Nitrogen 13 mg/dL (7-20) Creatinine 1.1 mg/dL (0.6-1.0) Estimated GFR (Cockcroft-Gault) 51.6 Glucose Level 118 mg/dL (70-99) Calcium Level 8.7 mg/dL (8.5-10.1) Assessment and Plan Assessmemt and Plan Problems Medical Problems: (1) Cellulitis of lower extremity Status: Acute (2) Respiratory failure with hypoxia Status: Acute (3) Sepsis Status: Acute Comment Review of Relevant I have reviewed the following items sunitha (where applicable) has been applied. Labs Laboratory Tests Test 04/01/21 13:30 04/02/21 02:00 04/02/21 09:35 04/02/21 17:05 O2 Saturation 96 % (92-99) Arterial Blood pH 7.37 (7.35-7.45) Arterial Blood pCO2 at Patient Temp 55 mmHg (35-46) Arterial Blood pO2 at Patient Temp 84 mmHg (75-108) Arterial Blood HCO3 31 mmol/L (21-28) Arterial Blood Base Excess 4 mmol/L (-3-3) FiO2 35 White Blood Count 13.0 x10^3/uL (4.0-11.0) Red Blood Count 3.32 x10^6/uL (3.50-5.40) Hemoglobin 10.2 g/dL (12.0-15.5) Hematocrit 30.6 % (36.0-47.0) Mean Corpuscular Volume 92 fL (79-100) Mean Corpuscular Hemoglobin 31 pg (25-35) Mean Corpuscular Hemoglobin Concent 33 g/dL (31-37) Red Cell Distribution Width 14.4 % (11.5-14.5) Platelet Count 232 x10^3/uL (140-400) Neutrophils (%) (Auto) 89 % (31-73) Lymphocytes (%) (Auto) 5 % (24-48) Monocytes (%) (Auto) 5 % (0-9) Eosinophils (%) (Auto) 0 % (0-3) Basophils (%) (Auto) 0 % (0-3) Neutrophils # (Auto) 11.6 x10^3/uL (1.8-7.7) Lymphocytes # (Auto) 0.7 x10^3/uL (1.0-4.8) Monocytes # (Auto) 0.7 x10^3/uL (0.0-1.1) Eosinophils # (Auto) 0.0 x10^3/uL (0.0-0.7) Basophils # (Auto) 0.0 x10^3/uL (0.0-0.2) Sodium Level 136 mmol/L (136-145) Potassium Level 3.3 mmol/L (3.5-5.1) Chloride Level 98 mmol/L (98-107) Carbon Dioxide Level 35 mmol/L (21-32) Anion Gap 3 (6-14) Blood Urea Nitrogen 15 mg/dL (7-20) Creatinine 1.2 mg/dL (0.6-1.0) Estimated GFR (Cockcroft-Gault) 46.6 Glucose Level 103 mg/dL (70-99) Calcium Level 8.6 mg/dL (8.5-10.1) Troponin I Quantitative 2.903 ng/mL (0.000-0.055) 2.218 ng/mL (0.000-0.055) Triglycerides Level 126 mg/dL (0-150) Cholesterol Level 112 mg/dL (0-200) LDL Cholesterol, Calculated 67 mg/dL (0-100) VLDL Cholesterol, Calculated 25 mg/dL (0-40) Non-HDL Cholesterol Calculated 92 mg/dL (0-129) HDL Cholesterol 20 mg/dL (40-60) Cholesterol/HDL Ratio 5.6 Heparin Anti-Xa Act, Unfractionated 0.13 IU/mL (0.30-0.70) Test 04/03/21 01:35 04/03/21 06:05 04/03/21 08:25 Heparin Anti-Xa Act, Unfractionated < 0.10 IU/mL (0.30-0.70) 0.13 IU/mL (0.30-0.70) White Blood Count 5.4 x10^3/uL (4.0-11.0) Red Blood Count 3.27 x10^6/uL (3.50-5.40) Hemoglobin 10.2 g/dL (12.0-15.5) Hematocrit 30.0 % (36.0-47.0) Mean Corpuscular Volume 92 fL (79-100) Mean Corpuscular Hemoglobin 31 pg (25-35) Mean Corpuscular Hemoglobin Concent 34 g/dL (31-37) Red Cell Distribution Width 14.7 % (11.5-14.5) Platelet Count 160 x10^3/uL (140-400) Sodium Level 133 mmol/L (136-145) Potassium Level 3.5 mmol/L (3.5-5.1) Chloride Level 96 mmol/L (98-107) Carbon Dioxide Level 34 mmol/L (21-32) Anion Gap 3 (6-14) Blood Urea Nitrogen 13 mg/dL (7-20) Creatinine 1.1 mg/dL (0.6-1.0) Estimated GFR (Cockcroft-Gault) 51.6 Glucose Level 118 mg/dL (70-99) Calcium Level 8.7 mg/dL (8.5-10.1) Laboratory Tests Test 04/02/21 17:05 04/03/21 01:35 04/03/21 06:05 04/03/21 08:25 Heparin Anti-Xa Act, Unfractionated 0.13 IU/mL (0.30-0.70) < 0.10 IU/mL (0.30-0.70) 0.13 IU/mL (0.30-0.70) White Blood Count 5.4 x10^3/uL (4.0-11.0) Red Blood Count 3.27 x10^6/uL (3.50-5.40) Hemoglobin 10.2 g/dL (12.0-15.5) Hematocrit 30.0 % (36.0-47.0) Mean Corpuscular Volume 92 fL (79-100) Mean Corpuscular Hemoglobin 31 pg (25-35) Mean Corpuscular Hemoglobin Concent 34 g/dL (31-37) Red Cell Distribution Width 14.7 % (11.5-14.5) Platelet Count 160 x10^3/uL (140-400) Sodium Level 133 mmol/L (136-145) Potassium Level 3.5 mmol/L (3.5-5.1) Chloride Level 96 mmol/L (98-107) Carbon Dioxide Level 34 mmol/L (21-32) Anion Gap 3 (6-14) Blood Urea Nitrogen 13 mg/dL (7-20) Creatinine 1.1 mg/dL (0.6-1.0) Estimated GFR (Cockcroft-Gault) 51.6 Glucose Level 118 mg/dL (70-99) Calcium Level 8.7 mg/dL (8.5-10.1) Medications Current Medications Sodium Chloride 1,860 ml @ 1,860 mls/hr Q1H IV Last administered on 03/31/21at 12:33; Start 03/31/21 at 09:45; Stop 03/31/21 at 22:11; Status DC Sodium Chloride 500 ml @ 1,000 mls/hr PRN Q30MIN PRN IV SEE COMMENTS; Start 03/31/21 at 09:45 Vancomycin HCl (Vanco Per Pharmacy) 1 each PRN DAILY PRN MC SEE COMMENTS Last administered on 04/01/21at 10:01; Start 03/31/21 at 09:45; Stop 04/01/21 at 12:31; Status DC Levofloxacin/ Dextrose 150 ml @ 100 mls/hr 1X ONCE IV Last administered on 03/31/21at 10:03; Start 03/31/21 at 09:45; Stop 03/31/21 at 11:14; Status DC Vancomycin HCl 2 gm/Sodium Chloride 500 ml @ 250 mls/hr 1X ONCE IV Last administered on 03/31/21at 11:33; Start 03/31/21 at 10:00; Stop 03/31/21 at 11:59; Status DC Acetaminophen (Tylenol) 1,000 mg 1X ONCE PO Last administered on 03/31/21at 12:01; Start 03/31/21 at 10:30; Stop 03/31/21 at 10:31; Status DC Atorvastatin Calcium (Lipitor) 20 mg DAILY PO Last administered on 04/03/21at 09:13; Start 04/01/21 at 09:00 Non-Formulary Medication (Albuterol Sulfate (Proventil Hfa Inhaler)) . PRN PRN IH WHEEZING; Start 03/31/21 at 12:15; Status UNV Losartan Potassium (Cozaar) 100 mg DAILY PO Last administered on 04/03/21at 09:14; Start 03/31/21 at 14:00 Oxycodone HCl (Roxicodone) 5 mg PRN QID PRN PO MODERATE TO SEVERE PAIN; Start 03/31/21 at 12:30; Stop 04/01/21 at 08:21; Status DC Hydrochlorothiazide (Microzide) 12.5 mg DAILY PO Last administered on 04/03/21at 09:13; Start 03/31/21 at 14:00 Albuterol Sulfate (Ventolin Neb Soln) 2.5 mg PRN Q4HRS PRN NEB SHORTNESS OF BREATH; Start 03/31/21 at 12:30 Vancomycin HCl 2 gm/Sodium Chloride 500 ml @ 250 mls/hr Q12H IV Last administered on 04/01/21at 12:18; Start 03/31/21 at 23:30; Stop 04/01/21 at 12:27; Status DC Vancomycin HCl (Vancomycin Trough Level) 1 each 1X ONCE MC ; Start 04/01/21 at 23:00; Stop 04/01/21 at 12:34; Status DC Lorazepam (Ativan) 0.25 mg PRN Q6HRS PRN PO ANXIETY / AGITATION; Start 03/31/21 at 17:15; Stop 04/01/21 at 08:21; Status DC Morphine Sulfate (Morphine Sulfate) 2 mg PRN Q2HR PRN IV MODERATE TO SEVERE PAIN Last administered on 04/01/21at 01:50; Start 03/31/21 at 17:15; Stop 04/01/21 at 08:21; Status DC Sodium Chloride 1,000 ml @ 75 mls/hr 1X ONCE IV Last administered on 03/31/21at 22:11; Start 03/31/21 at 17:15; Stop 04/01/21 at 06:34; Status DC Acetaminophen (Tylenol) 650 mg PRN Q6HRS PRN PO MILD PAIN / TEMP > 100.3'F Last administered on 04/03/21at 09:13; Start 04/01/21 at 08:45 Piperacillin Sod/ Tazobactam Sod (Zosyn Per Pharmacy) 1 each PRN DAILY PRN MC SEE COMMENTS; Start 04/01/21 at 12:30 Enoxaparin Sodium (Lovenox 30mg Syringe) 30 mg 1X ONCE SQ Last administered on 04/01/21at 14:08; Start 04/01/21 at 13:00; Stop 04/01/21 at 13:01; Status DC Pantoprazole Sodium (Protonix) 40 mg DAILYAC PO Last administered on 04/03/21at 09:14; Start 04/01/21 at 14:00 Piperacillin Sod/ Tazobactam Sod 3.375 gm/Sodium Chloride 50 ml @ 100 mls/hr Q6HRS IV Last administered on 04/03/21at 05:57; Start 04/01/21 at 13:30 Lactobacillus Rhamnosus (Culturelle) 1 cap BID PO Last administered on 04/03/21at 09:14; Start 04/01/21 at 21:00 Linezolid (Zyvox) 600 mg BID PO Last administered on 04/03/21at 09:13; Start 04/01/21 at 21:00 Furosemide (Lasix) 40 mg 1X ONCE IVP Last administered on 04/01/21at 17:05; Start 04/01/21 at 16:30; Stop 04/01/21 at 16:31; Status DC Morphine Sulfate (Morphine Sulfate) 2 mg PRN Q2HR PRN IV SEVERE PAIN 7-10 Last administered on 04/01/21at 21:11; Start 04/01/21 at 21:00 Heparin Sodium/ Dextrose 250 ml @ 10 mls/hr CONT PRN IV PER PROTOCOL Last administered on 04/02/21at 09:28; Start 04/02/21 at 08:30 Heparin Sodium (Porcine) (Heparin Sodium) 4,300 unit PRN Q6HRS PRN IV FOR UFH LEVEL LESS THAN 0.2 Last administered on 04/03/21at 10:03; Start 04/02/21 at 08:30 Potassium Chloride (Klor-Con) 40 meq 1X ONCE PO Last administered on 04/02/21at 20:24; Start 04/02/21 at 19:45; Stop 04/02/21 at 19:46; Status DC Active Scripts Active Oxycodone Hcl 5 Mg Capsule 1 Cap PO QID PRN Levaquin (Levofloxacin) 750 Mg Tablet 750 Mg PO DAILY06 Reported Benicar Hct 40-12.5 Mg Tablet (Olmesartan/Hydrochlorothiazide) 1 Each Tablet 1 Tab PO DAILY Lipitor (Atorvastatin Calcium) 20 Mg Tablet 1 Tab PO DAILY Proventil Hfa Inhaler (Albuterol Sulfate) 6.7 Gm Hfa.aer.ad 1-2 Puff IH PRN PRN Vitals/I & O Vital Sign - Last 24 Hours 04/02/21 04/02/21 04/02/21 04/02/21 11:00 14:50 19:28 19:50 Temp 101.4 98.8 99.9 101.4 98.8 99.9 Pulse 103 90 99 Resp 28 20 B/P (MAP) 96/50 (65) 122/60 (80) 147/70 (95) Pulse Ox 91 92 94 O2 Delivery Venturi Mask Venturi Mask Venturi Mask Venturi Mask O2 Flow Rate 2.0 15.0 04/02/21 04/03/21 04/03/21 04/03/21 23:04 00:00 02:20 02:31 Temp 99.2 98.8 99.2 98.8 Pulse 89 92 Resp 22 20 B/P (MAP) 112/56 (74) 137/70 (92) Pulse Ox 96 96 99 95 O2 Delivery Venturi Mask BiPAP/CPAP BiPAP/CPAP Venturi Mask O2 Flow Rate 2.0 2.0 04/03/21 04/03/21 04/03/21 04/03/21 05:30 07:00 08:50 09:14 Temp 102.4 102.4 Pulse 99 99 Resp 31 B/P (MAP) 175/80 (111) 175/80 Pulse Ox 97 97 O2 Delivery BiPAP/CPAP BiPAP/CPAP Intake and Output 04/02/21 04/02/21 04/03/21 15:00 23:00 07:00 Intake Total 295 ml 260 ml 200 ml Output Total 1425 ml 900 ml Balance 295 ml -1165 ml -700 ml Justicifation of Admission Dx: Justifications for Admission: Justification of Admission Dx: Yes Comminuty Aquired Pneumonia: Hypoxemia SANAM HERRERA MD Apr 03, 2021 10:32
--- NOTE | 2021-04-03 11:48 | NUR ---
SS following for discharge planning. SS reviewed pt chart and discussed with pt RN. Pt is from home with spouse and is currently on non-rebreather at 15 liters. Pt on BIPAP HS. Pt on IV Zosyn. Heparin drip. COVID19 negative. Self pay. Med Assist following. SS will continue to follow for discharge planning.
--- NOTE | 2021-04-03 12:02 | PDOC ---
CARDIO Progress Notes Date and Time Date of Service 04/03/21 Time of Evaluation 1200 Subjective Subjective: No Chest Pain, Other (breathing improved ) Vitals Vitals Vital Signs Date Time Temp Pulse Resp B/P (MAP) Pulse Ox O2 Delivery O2 Flow Rate FiO2 04/03/21 11:00 99.7 92 32 106/58 (74) 97 NRB 15.0 99.7 Weight Weight [ ] Input and Output Intake and Output Intake and Output 04/03/21 07:00 Intake Total 755 ml Output Total 2325 ml Balance -1570 ml Intake Oral 755 ml Output Urine Total 2325 ml Laboratory Labs Laboratory Tests Test 04/02/21 17:05 04/03/21 01:35 04/03/21 06:05 04/03/21 08:25 Heparin Anti-Xa Act, Unfractionated 0.13 IU/mL (0.30-0.70) < 0.10 IU/mL (0.30-0.70) 0.13 IU/mL (0.30-0.70) White Blood Count 5.4 x10^3/uL (4.0-11.0) Red Blood Count 3.27 x10^6/uL (3.50-5.40) Hemoglobin 10.2 g/dL (12.0-15.5) Hematocrit 30.0 % (36.0-47.0) Mean Corpuscular Volume 92 fL (79-100) Mean Corpuscular Hemoglobin 31 pg (25-35) Mean Corpuscular Hemoglobin Concent 34 g/dL (31-37) Red Cell Distribution Width 14.7 % (11.5-14.5) Platelet Count 160 x10^3/uL (140-400) Sodium Level 133 mmol/L (136-145) Potassium Level 3.5 mmol/L (3.5-5.1) Chloride Level 96 mmol/L (98-107) Carbon Dioxide Level 34 mmol/L (21-32) Anion Gap 3 (6-14) Blood Urea Nitrogen 13 mg/dL (7-20) Creatinine 1.1 mg/dL (0.6-1.0) Estimated GFR (Cockcroft-Gault) 51.6 Glucose Level 118 mg/dL (70-99) Calcium Level 8.7 mg/dL (8.5-10.1) Physical Exam HEENT: Neck Supple W Full Motion Chest: Symmetric LUNGS: Other (diminished) Heart: RRR Abdomen: Other (obese ) Extremities: Other (2+ bilateral LE edema) Neurology: alert, oriented, follow commands Assessment Assessment 1. Acute respiratory failure secondary to CHF, cor pulmonale 2. Acute on chronic diastolic CHF; Echo with preserved LV systolic function 3. LE cellulitis 4. Leukocytosis, lactic acidosis, fevers, sepsis. 5. NSTEMI; trop peak Troponin peak 2.9. Probable demand ischemia. CP free. on heparin gtt 6. Morbid obesity. Recommendations Continue heparin gtt overnight Add ASA. continue statin Add amlodipine for BP control Ongoing antibiotic therapy Ischemic evaluation based upon clinical course Justicifation of Admission Dx: Justifications for Admission: Justification of Admission Dx: Yes (Acute respiratory failure, CHF) IVAN BATEMAN APRN Apr 03, 2021 12:02
--- NOTE | 2021-04-03 12:14 | PDOC ---
PULMONARY PROGRESS NOTES DATE: 04/03/21 TIME: 12:13 Subjective Patient remained on BiPAP all night. Venturi mask during the day. Doing well Arterial blood gases much better. She is fully awake. Vitals Vital Signs Date Time Temp Pulse Resp B/P (MAP) Pulse Ox O2 Delivery O2 Flow Rate FiO2 04/03/21 11:00 99.7 92 32 106/58 (74) 97 NRB 15.0 99.7 General: Alert, No acute distress Lungs: Clear Cardiovascular: S1 Abdomen: Soft, Other (Marked obesity.) Extremities: Other (Right lower extremity cellulitis.) Labs Laboratory Tests Test 04/01/21 13:30 04/02/21 02:00 04/02/21 09:35 04/02/21 17:05 O2 Saturation 96 % (92-99) Arterial Blood pH 7.37 (7.35-7.45) Arterial Blood pCO2 at Patient Temp 55 mmHg (35-46) Arterial Blood pO2 at Patient Temp 84 mmHg (75-108) Arterial Blood HCO3 31 mmol/L (21-28) Arterial Blood Base Excess 4 mmol/L (-3-3) FiO2 35 White Blood Count 13.0 x10^3/uL (4.0-11.0) Red Blood Count 3.32 x10^6/uL (3.50-5.40) Hemoglobin 10.2 g/dL (12.0-15.5) Hematocrit 30.6 % (36.0-47.0) Mean Corpuscular Volume 92 fL (79-100) Mean Corpuscular Hemoglobin 31 pg (25-35) Mean Corpuscular Hemoglobin Concent 33 g/dL (31-37) Red Cell Distribution Width 14.4 % (11.5-14.5) Platelet Count 232 x10^3/uL (140-400) Neutrophils (%) (Auto) 89 % (31-73) Lymphocytes (%) (Auto) 5 % (24-48) Monocytes (%) (Auto) 5 % (0-9) Eosinophils (%) (Auto) 0 % (0-3) Basophils (%) (Auto) 0 % (0-3) Neutrophils # (Auto) 11.6 x10^3/uL (1.8-7.7) Lymphocytes # (Auto) 0.7 x10^3/uL (1.0-4.8) Monocytes # (Auto) 0.7 x10^3/uL (0.0-1.1) Eosinophils # (Auto) 0.0 x10^3/uL (0.0-0.7) Basophils # (Auto) 0.0 x10^3/uL (0.0-0.2) Sodium Level 136 mmol/L (136-145) Potassium Level 3.3 mmol/L (3.5-5.1) Chloride Level 98 mmol/L (98-107) Carbon Dioxide Level 35 mmol/L (21-32) Anion Gap 3 (6-14) Blood Urea Nitrogen 15 mg/dL (7-20) Creatinine 1.2 mg/dL (0.6-1.0) Estimated GFR (Cockcroft-Gault) 46.6 Glucose Level 103 mg/dL (70-99) Calcium Level 8.6 mg/dL (8.5-10.1) Troponin I Quantitative 2.903 ng/mL (0.000-0.055) 2.218 ng/mL (0.000-0.055) Triglycerides Level 126 mg/dL (0-150) Cholesterol Level 112 mg/dL (0-200) LDL Cholesterol, Calculated 67 mg/dL (0-100) VLDL Cholesterol, Calculated 25 mg/dL (0-40) Non-HDL Cholesterol Calculated 92 mg/dL (0-129) HDL Cholesterol 20 mg/dL (40-60) Cholesterol/HDL Ratio 5.6 Heparin Anti-Xa Act, Unfractionated 0.13 IU/mL (0.30-0.70) Test 04/03/21 01:35 04/03/21 06:05 04/03/21 08:25 Heparin Anti-Xa Act, Unfractionated < 0.10 IU/mL (0.30-0.70) 0.13 IU/mL (0.30-0.70) White Blood Count 5.4 x10^3/uL (4.0-11.0) Red Blood Count 3.27 x10^6/uL (3.50-5.40) Hemoglobin 10.2 g/dL (12.0-15.5) Hematocrit 30.0 % (36.0-47.0) Mean Corpuscular Volume 92 fL (79-100) Mean Corpuscular Hemoglobin 31 pg (25-35) Mean Corpuscular Hemoglobin Concent 34 g/dL (31-37) Red Cell Distribution Width 14.7 % (11.5-14.5) Platelet Count 160 x10^3/uL (140-400) Sodium Level 133 mmol/L (136-145) Potassium Level 3.5 mmol/L (3.5-5.1) Chloride Level 96 mmol/L (98-107) Carbon Dioxide Level 34 mmol/L (21-32) Anion Gap 3 (6-14) Blood Urea Nitrogen 13 mg/dL (7-20) Creatinine 1.1 mg/dL (0.6-1.0) Estimated GFR (Cockcroft-Gault) 51.6 Glucose Level 118 mg/dL (70-99) Calcium Level 8.7 mg/dL (8.5-10.1) Laboratory Tests Test 04/02/21 17:05 04/03/21 01:35 04/03/21 06:05 04/03/21 08:25 Heparin Anti-Xa Act, Unfractionated 0.13 IU/mL (0.30-0.70) < 0.10 IU/mL (0.30-0.70) 0.13 IU/mL (0.30-0.70) White Blood Count 5.4 x10^3/uL (4.0-11.0) Red Blood Count 3.27 x10^6/uL (3.50-5.40) Hemoglobin 10.2 g/dL (12.0-15.5) Hematocrit 30.0 % (36.0-47.0) Mean Corpuscular Volume 92 fL (79-100) Mean Corpuscular Hemoglobin 31 pg (25-35) Mean Corpuscular Hemoglobin Concent 34 g/dL (31-37) Red Cell Distribution Width 14.7 % (11.5-14.5) Platelet Count 160 x10^3/uL (140-400) Sodium Level 133 mmol/L (136-145) Potassium Level 3.5 mmol/L (3.5-5.1) Chloride Level 96 mmol/L (98-107) Carbon Dioxide Level 34 mmol/L (21-32) Anion Gap 3 (6-14) Blood Urea Nitrogen 13 mg/dL (7-20) Creatinine 1.1 mg/dL (0.6-1.0) Estimated GFR (Cockcroft-Gault) 51.6 Glucose Level 118 mg/dL (70-99) Calcium Level 8.7 mg/dL (8.5-10.1) Medications Active Scripts Medications Dose Route/Sig Max Daily Dose Days Date Category Oxycodone Hcl 5 Mg Capsule 1 Cap PO QID PRN 10/28/17 Rx Levaquin (Levofloxacin) 750 Mg Tablet 750 Mg PO DAILY06 04/06/16 Rx Benicar Hct 40-12.5 Mg Tablet (Olmesartan/Hydrochlorothiazide) 1 Each Tablet 1 Tab PO DAILY 03/30/15 Reported Lipitor (Atorvastatin Calcium) 20 Mg Tablet 1 Tab PO DAILY 03/30/15 Reported Proventil Hfa Inhaler (Albuterol Sulfate) 6.7 Gm Hfa.aer.ad 1-2 Puff IH PRN PRN 03/30/15 Reported Impression . IMPRESSION: 1. Acute on chronic hypoxic and hypercapnic respiratory failure, likely secondary to right heart failure versus left heart failure and could be combined heart failure. Clinically, less likely pneumonia. Clinically, less likely COVID. Rapid test for COVID is negative. 2. Underlying obstructive sleep apnea along with obesity hypoventilation syndrome with cor pulmonale. 3. Mildly increased troponin. 4. Mildly increased lactic acid from increased work of breathing, now improved. 5. Abnormal chest x-ray with bilateral interstitial infiltrates, likely congestive heart failure. 6. Right lower extremity cellulitis. Plan . 1. Patient blood gases have improved with BiPAP. She is on a Venturi mask all day. Will change to nasal cannula. Keep BiPAP nightly. 3. Diuresis. 4. Obtain echocardiogram. 5. I have discontinued narcotics and benzodiazepines. 6. Continue nebulizer. 7. Smoking cessation counseling provided. 8. Discussed with RN and respiratory therapist. 9. Likely discharge in the next 24 hours FELIPE HOUSE MD Apr 03, 2021 12:14
--- NOTE | 2021-04-03 16:00 | NUR ---
Wound Care Wound Type/Assessment: Pt seen for wound consultation re: BLE cellulitis and wounds. Pt has a small pus filled ulcer on her L pre-tibial area, superficial and crusty, no periwound redness or fluctuance noted. Pt's R lower leg is bright red from above the knee down to the foot, reddened area outlined with permanent marker. Ulcerations are sloughy, dusky red and draining, no odor noted, significant pitting edema in extremity. Treatment Recommendations/Plan: Recommend cleaning with saline, then applying Medihoney alginate to all three areas to assist in autolytically debriding sloughy areas, as well as its antimicrobial effects, then covering with ABDs and kerlix. Change every 3 days. Elevate legs above heart at least 4x/day. Education provided: to pt, RN and clinical nursing coordinator re: POC. Offloading surface/device: pillows to offload heels, pt reminded to turn frequently. Recommended Referrals/Tests: n/a Discharge Recommendations for dressings: same as treatment plan above.
[2021-04-03] MEDS: HEPARIN 25,000UTS/250ML PREMIX 250 ML IV PRN (17:52)
[2021-04-04] VITALS (7 sets, daily range): BP systolic 114–170; BP diastolic 54–74
[2021-04-04] MEDS: HEPARIN for IV BOLUS 10,000 UNIT/10 ML VIAL. IV PRN (00:09)
[2021-04-04] MEDS: HEPARIN 25,000UTS/250ML PREMIX 250 ML IV PRN (01:02)
[2021-04-04] MEDS: PIPERACILLIN/TAZOBACTAM 3.375 GM in IV NORMAL SALINE 50ML 50 ML IV SCH ×3 (05:24→18:16)
[2021-04-04] MEDS: PANTOPRAZOLE 40 MG TABLET.DR. PO SCH (05:29)
[2021-04-04 07:51] LABS: CALCIUM 8.5 mg/dL (8.5-10.1); CREATININE 1.2 mg/dL (0.6-1.0); GFR 46.6
[2021-04-04 07:58] LABS: POTASSIUM 2.9 mmol/L (3.5-5.1)
[2021-04-04] MEDS ORDERED: POTASSIUM CHLORIDE 20 MEQ TABLET.ER. PO ONE ×4 (08:15→18:00)
--- NOTE | 2021-04-04 08:31 | PDOC ---
PROGRESS NOTES Date of Service: DATE: 04/04/21 TIME: 08:31 Chief Complaint Chief Complaint impression Sepsis Right lower extremity cellulitis with ulcerations Acute on chronic hypoxic and hypercapnic respiratory failure Bilateral bibasilar pneumonia, possible gram-negative organism, possible aspiration MINA Cor pulmonale Elevated troponins MAURA due to vasomotor nephropathy Lactic acidemia Super super morbid obesity Anemia of chronic disease Severe protein malnutrition 9-14 hypoxic and hypercapnic respiratory failure, likely secondary to right heart failure versus left heart failure and could be combined heart failure. Clinically, less likely pneumonia. Clinically, less likely COVID. Rapid test for COVID is negative. Appreciate pulmonary and surgery recommendationscontinue BiPAP and O2 supplementation. Repeat ABG. Pending cardiology evaluation ID evaluation Continue empiric IV antibiotics Lovenox DVT prophylaxis Protonix GI prophylaxis ADA diet CODE STATUS full Discussed with RN and SW Disposition inpatient management as above DPOA: Designated necrotic ulcer with purulent drainage in the front of the lower villalpando as well as on the back side of the leg extensive erythema involving the leg going up to the distal thigh. Extensive right lower extremity cellulitis./ Right lower extremity two infected ulcers. Fever. Leukocytosis. CONTINUE IV ZOSYN History of Present Illness History of Present Illness 55-year-old female presents with severe shortness of breath. It has been occurring for a couple of weeks. It got particularly bad this morning. She came in by ambulance. She has lower extremity edema. She also was hypoxic with a sat of 71% on 6 liters. She is also tachycardic, appears to be septic. 04/01/2021 No acute events overnight. Patient continues to be on BiPAP and is saturating 96% on 60% FiO2. This will be titrated down to 40% per pulmonology pending further ABG. Fever overnight with T-max of 102.7. Patient seen and examined bedside with altered mental status. But she is able to keep the BiPAP on without agitation. However patient does require some sedatives such as Ativan to help her keep the mask on. Patient's chart, labs, images were reviewed and discussed with RN A total of 35 minutes of critical care time was spent in reviewing chart, labs, and images. Discussed with RN and SW. 04/02/2021 No acute events overnight. Patient did have her troponins increased to 2.9. Heparin drip was started. Patient is actually more alert and awake and was able to maintain O2 saturations off of BiPAP. We will now just start BiPAP only nocturnally per pulmonology. Repeat ABG as needed. Pending cardiology evaluation. Patient's chart, labs, images were reviewed and discussed with RN A total of 33 minutes of critical care time was spent in reviewing chart, labs, and images. Discussed with RN and SW. Vitals Vitals Vital Signs Date Time Temp Pulse Resp B/P (MAP) Pulse Ox O2 Delivery O2 Flow Rate FiO2 04/04/21 04:00 97 BiPAP/CPAP 04/04/21 02:08 97.3 97 32 162/74 (103) 97.3 04/03/21 23:00 5.0 Physical Exam Physical Exam hypoxic and hypercapnic respiratory failure, likely secondary to right heart failure versus left heart failure and could be combined heart failure. Clinically, less likely pneumonia. Clinically, less likely COVID. Rapid test for COVID is negative. necrotic ulcer with purulent drainage in the front of the lower villalpando as well as on the back side of the leg and extensive erythema involving the leg going up to the distal thigh. GENERAL: Alert and oriented female, not in any distress. VITAL SIGNS: Stable HEENT: NAD. NECK: Supple, no JVP, no lymphadenopathy. LUNGS: Clear. HEART: S1, S2 regular. ABDOMEN: Soft and nontender, no organomegaly. EXTREMITIES: Rather large. Right leg has a necrotic ulcer with purulent drainage in the front of the lower villalpando as well as on the back side of the leg and extensive erythema involving the leg going up to the distal thigh. NEUROLOGIC: The patient is alert, awake, and appropriate. No focal neurologic deficit. General: Alert, Cooperative, mild distress Heart: Regular rate Lungs: Clear Abdomen: Normal bowel sounds Extremities: No clubbing, No cyanosis Labs LABS Laboratory Tests Test 04/03/21 14:53 04/03/21 20:45 04/04/21 06:45 Heparin Anti-Xa Act, Unfractionated < 0.10 IU/mL (0.30-0.70) 0.12 IU/mL (0.30-0.70) 0.58 IU/mL (0.30-0.70) Sodium Level 132 mmol/L (136-145) Potassium Level 2.9 mmol/L (3.5-5.1) Chloride Level 93 mmol/L (98-107) Carbon Dioxide Level 37 mmol/L (21-32) Anion Gap 2 (6-14) Blood Urea Nitrogen 9 mg/dL (7-20) Creatinine 1.2 mg/dL (0.6-1.0) Estimated GFR (Cockcroft-Gault) 46.6 Glucose Level 115 mg/dL (70-99) Calcium Level 8.5 mg/dL (8.5-10.1) Assessment and Plan Assessmemt and Plan Problems Medical Problems: (1) Cellulitis of lower extremity Status: Acute (2) Respiratory failure with hypoxia Status: Acute (3) Sepsis Status: Acute Comment Review of Relevant I have reviewed the following items sunitha (where applicable) has been applied. Labs Laboratory Tests Test 04/02/21 09:35 04/02/21 17:05 04/03/21 01:35 04/03/21 06:05 Troponin I Quantitative 2.218 ng/mL (0.000-0.055) Heparin Anti-Xa Act, Unfractionated 0.13 IU/mL (0.30-0.70) < 0.10 IU/mL (0.30-0.70) White Blood Count 5.4 x10^3/uL (4.0-11.0) Red Blood Count 3.27 x10^6/uL (3.50-5.40) Hemoglobin 10.2 g/dL (12.0-15.5) Hematocrit 30.0 % (36.0-47.0) Mean Corpuscular Volume 92 fL (79-100) Mean Corpuscular Hemoglobin 31 pg (25-35) Mean Corpuscular Hemoglobin Concent 34 g/dL (31-37) Red Cell Distribution Width 14.7 % (11.5-14.5) Platelet Count 160 x10^3/uL (140-400) Sodium Level 133 mmol/L (136-145) Potassium Level 3.5 mmol/L (3.5-5.1) Chloride Level 96 mmol/L (98-107) Carbon Dioxide Level 34 mmol/L (21-32) Anion Gap 3 (6-14) Blood Urea Nitrogen 13 mg/dL (7-20) Creatinine 1.1 mg/dL (0.6-1.0) Estimated GFR (Cockcroft-Gault) 51.6 Glucose Level 118 mg/dL (70-99) Calcium Level 8.7 mg/dL (8.5-10.1) Test 04/03/21 08:25 04/03/21 14:53 04/03/21 20:45 04/04/21 06:45 Heparin Anti-Xa Act, Unfractionated 0.13 IU/mL (0.30-0.70) < 0.10 IU/mL (0.30-0.70) 0.12 IU/mL (0.30-0.70) 0.58 IU/mL (0.30-0.70) Sodium Level 132 mmol/L (136-145) Potassium Level 2.9 mmol/L (3.5-5.1) Chloride Level 93 mmol/L (98-107) Carbon Dioxide Level 37 mmol/L (21-32) Anion Gap 2 (6-14) Blood Urea Nitrogen 9 mg/dL (7-20) Creatinine 1.2 mg/dL (0.6-1.0) Estimated GFR (Cockcroft-Gault) 46.6 Glucose Level 115 mg/dL (70-99) Calcium Level 8.5 mg/dL (8.5-10.1) Laboratory Tests Test 04/03/21 14:53 04/03/21 20:45 04/04/21 06:45 Heparin Anti-Xa Act, Unfractionated < 0.10 IU/mL (0.30-0.70) 0.12 IU/mL (0.30-0.70) 0.58 IU/mL (0.30-0.70) Sodium Level 132 mmol/L (136-145) Potassium Level 2.9 mmol/L (3.5-5.1) Chloride Level 93 mmol/L (98-107) Carbon Dioxide Level 37 mmol/L (21-32) Anion Gap 2 (6-14) Blood Urea Nitrogen 9 mg/dL (7-20) Creatinine 1.2 mg/dL (0.6-1.0) Estimated GFR (Cockcroft-Gault) 46.6 Glucose Level 115 mg/dL (70-99) Calcium Level 8.5 mg/dL (8.5-10.1) Medications Current Medications Sodium Chloride 1,860 ml @ 1,860 mls/hr Q1H IV Last administered on 03/31/21at 12:33; Start 03/31/21 at 09:45; Stop 03/31/21 at 22:11; Status DC Sodium Chloride 500 ml @ 1,000 mls/hr PRN Q30MIN PRN IV SEE COMMENTS; Start 03/31/21 at 09:45 Vancomycin HCl (Vanco Per Pharmacy) 1 each PRN DAILY PRN MC SEE COMMENTS Last administered on 04/01/21at 10:01; Start 03/31/21 at 09:45; Stop 04/01/21 at 12:31; Status DC Levofloxacin/ Dextrose 150 ml @ 100 mls/hr 1X ONCE IV Last administered on 03/31/21at 10:03; Start 03/31/21 at 09:45; Stop 03/31/21 at 11:14; Status DC Vancomycin HCl 2 gm/Sodium Chloride 500 ml @ 250 mls/hr 1X ONCE IV Last administered on 03/31/21at 11:33; Start 03/31/21 at 10:00; Stop 03/31/21 at 11:59; Status DC Acetaminophen (Tylenol) 1,000 mg 1X ONCE PO Last administered on 03/31/21at 12:01; Start 03/31/21 at 10:30; Stop 03/31/21 at 10:31; Status DC Atorvastatin Calcium (Lipitor) 20 mg DAILY PO Last administered on 04/03/21at 09:13; Start 04/01/21 at 09:00; Stop 04/03/21 at 22:59; Status DC Non-Formulary Medication (Albuterol Sulfate (Proventil Hfa Inhaler)) . PRN PRN IH WHEEZING; Start 03/31/21 at 12:15; Status UNV Losartan Potassium (Cozaar) 100 mg DAILY PO Last administered on 04/03/21at 09:14; Start 03/31/21 at 14:00 Oxycodone HCl (Roxicodone) 5 mg PRN QID PRN PO MODERATE TO SEVERE PAIN; Start 03/31/21 at 12:30; Stop 04/01/21 at 08:21; Status DC Hydrochlorothiazide (Microzide) 12.5 mg DAILY PO Last administered on 04/03/21at 09:13; Start 03/31/21 at 14:00 Albuterol Sulfate (Ventolin Neb Soln) 2.5 mg PRN Q4HRS PRN NEB SHORTNESS OF BREATH; Start 03/31/21 at 12:30 Vancomycin HCl 2 gm/Sodium Chloride 500 ml @ 250 mls/hr Q12H IV Last administered on 04/01/21at 12:18; Start 03/31/21 at 23:30; Stop 04/01/21 at 12:27; Status DC Vancomycin HCl (Vancomycin Trough Level) 1 each 1X ONCE MC ; Start 04/01/21 at 23:00; Stop 04/01/21 at 12:34; Status DC Lorazepam (Ativan) 0.25 mg PRN Q6HRS PRN PO ANXIETY / AGITATION; Start 03/31/21 at 17:15; Stop 04/01/21 at 08:21; Status DC Morphine Sulfate (Morphine Sulfate) 2 mg PRN Q2HR PRN IV MODERATE TO SEVERE PAIN Last administered on 04/01/21at 01:50; Start 03/31/21 at 17:15; Stop 04/01/21 at 08:21; Status DC Sodium Chloride 1,000 ml @ 75 mls/hr 1X ONCE IV Last administered on 03/31/21at 22:11; Start 03/31/21 at 17:15; Stop 04/01/21 at 06:34; Status DC Acetaminophen (Tylenol) 650 mg PRN Q6HRS PRN PO MILD PAIN / TEMP > 100.3'F Last administered on 04/03/21at 15:47; Start 04/01/21 at 08:45 Piperacillin Sod/ Tazobactam Sod (Zosyn Per Pharmacy) 1 each PRN DAILY PRN MC SEE COMMENTS; Start 04/01/21 at 12:30 Enoxaparin Sodium (Lovenox 30mg Syringe) 30 mg 1X ONCE SQ Last administered on 04/01/21at 14:08; Start 04/01/21 at 13:00; Stop 04/01/21 at 13:01; Status DC Pantoprazole Sodium (Protonix) 40 mg DAILYAC PO Last administered on 04/04/21at 05:29; Start 04/01/21 at 14:00 Piperacillin Sod/ Tazobactam Sod 3.375 gm/Sodium Chloride 50 ml @ 100 mls/hr Q6HRS IV Last administered on 04/04/21at 05:24; Start 04/01/21 at 13:30 Lactobacillus Rhamnosus (Culturelle) 1 cap BID PO Last administered on 04/03/21at 22:10; Start 04/01/21 at 21:00 Linezolid (Zyvox) 600 mg BID PO Last administered on 04/03/21at 22:10; Start 04/01/21 at 21:00 Furosemide (Lasix) 40 mg 1X ONCE IVP Last administered on 04/01/21at 17:05; Start 04/01/21 at 16:30; Stop 04/01/21 at 16:31; Status DC Morphine Sulfate (Morphine Sulfate) 2 mg PRN Q2HR PRN IV SEVERE PAIN 7-10 Last administered on 04/01/21at 21:11; Start 04/01/21 at 21:00 Heparin Sodium/ Dextrose 250 ml @ 10 mls/hr CONT PRN IV PER PROTOCOL Last administered on 04/04/21at 01:02; Start 04/02/21 at 08:30 Heparin Sodium (Porcine) (Heparin Sodium) 4,300 unit PRN Q6HRS PRN IV FOR UFH LEVEL LESS THAN 0.2 Last administered on 04/04/21at 00:09; Start 04/02/21 at 08:30 Potassium Chloride (Klor-Con) 40 meq 1X ONCE PO Last administered on 04/02/21at 20:24; Start 04/02/21 at 19:45; Stop 04/02/21 at 19:46; Status DC Aspirin (Ecotrin) 81 mg DAILYWBKFT PO ; Start 04/04/21 at 08:00 Amlodipine Besylate (Norvasc) 5 mg DAILY PO ; Start 04/04/21 at 09:00 Atorvastatin Calcium (Lipitor) 40 mg DAILY PO ; Start 04/04/21 at 09:00 Potassium Chloride (Klor-Con) 40 meq 1X ONCE PO ; Start 04/04/21 at 08:15; Stop 04/04/21 at 08:18; Status DC Active Scripts Active Oxycodone Hcl 5 Mg Capsule 1 Cap PO QID PRN Levaquin (Levofloxacin) 750 Mg Tablet 750 Mg PO DAILY06 Reported Benicar Hct 40-12.5 Mg Tablet (Olmesartan/Hydrochlorothiazide) 1 Each Tablet 1 Tab PO DAILY Lipitor (Atorvastatin Calcium) 20 Mg Tablet 1 Tab PO DAILY Proventil Hfa Inhaler (Albuterol Sulfate) 6.7 Gm Hfa.aer.ad 1-2 Puff IH PRN PRN Vitals/I & O Vital Sign - Last 24 Hours 04/03/21 04/03/21 04/03/21 04/03/21 08:50 09:14 11:00 15:00 Temp 99.7 100.0 99.7 100.0 Pulse 99 92 94 Resp 32 30 B/P (MAP) 175/80 106/58 (74) 141/65 (90) Pulse Ox 97 96 O2 Delivery NRB Nasal Cannula O2 Flow Rate 15.0 5.0 04/03/21 04/03/21 04/03/21 04/03/21 20:00 20:34 23:00 23:40 Temp 99.0 97.9 99.0 97.9 Pulse 97 101 Resp 30 31 B/P (MAP) 163/72 (102) 178/77 (110) Pulse Ox 95 94 94 O2 Delivery Nasal Cannula Nasal Cannula Nasal Cannula BiPAP/CPAP O2 Flow Rate 5.0 5.0 5.0 04/04/21 04/04/21 02:08 04:00 Temp 97.3 97.3 Pulse 97 Resp 32 B/P (MAP) 162/74 (103) Pulse Ox 96 97 O2 Delivery BiPAP/CPAP BiPAP/CPAP Intake and Output 04/03/21 04/03/21 04/04/21 15:00 23:00 07:00 Intake Total 570 ml 400 ml 300 ml Output Total 400 ml 350 ml Balance 570 ml 0 ml -50 ml Justicifation of Admission Dx: Justifications for Admission: Justification of Admission Dx: Yes Comminuty Aquired Pneumonia: Hypoxemia SANAM HERRERA MD Apr 04, 2021 08:31
[2021-04-04] MEDS: ATORVASTATIN CALCIUM 20 MG TABLET PO SCH (09:02)
[2021-04-04] MEDS: ASPIRIN ENTERIC COATED 81 MG TABLET.DR. PO SCH (09:02)
[2021-04-04] MEDS: hydroCHLOROthiazide 12.5 MG CAPSULE PO SCH (09:03)
[2021-04-04] MEDS: LACTOBACILLUS RHAMNOSUS GG 1 CAPSULE. PO SCH ×2 (09:03→21:36)
[2021-04-04] MEDS: LINEZOLID 600 MG TABLET PO SCH ×2 (09:03→21:36)
[2021-04-04] MEDS: LOSARTAN POTASSIUM 50 MG TABLET. PO SCH (09:03)
--- NOTE | 2021-04-04 10:27 | PDOC ---
PULMONARY PROGRESS NOTES DATE: 04/04/21 TIME: 10:22 Subjective Doing well. Remains on nasal cannula during the day. Using BiPAP at nighttime Vitals Vital Signs Date Time Temp Pulse Resp B/P (MAP) Pulse Ox O2 Delivery O2 Flow Rate FiO2 04/04/21 09:03 91 170/74 04/04/21 08:22 94 BiPAP/CPAP 04/04/21 07:00 100.7 20 100.7 04/03/21 23:00 5.0 General: Alert, No acute distress Lungs: Clear Cardiovascular: S1 Abdomen: Soft, Other (Marked obesity.) Extremities: Other (Right lower extremity cellulitis.) Labs Laboratory Tests Test 04/02/21 17:05 04/03/21 01:35 04/03/21 06:05 04/03/21 08:25 Heparin Anti-Xa Act, Unfractionated 0.13 IU/mL (0.30-0.70) < 0.10 IU/mL (0.30-0.70) 0.13 IU/mL (0.30-0.70) White Blood Count 5.4 x10^3/uL (4.0-11.0) Red Blood Count 3.27 x10^6/uL (3.50-5.40) Hemoglobin 10.2 g/dL (12.0-15.5) Hematocrit 30.0 % (36.0-47.0) Mean Corpuscular Volume 92 fL (79-100) Mean Corpuscular Hemoglobin 31 pg (25-35) Mean Corpuscular Hemoglobin Concent 34 g/dL (31-37) Red Cell Distribution Width 14.7 % (11.5-14.5) Platelet Count 160 x10^3/uL (140-400) Sodium Level 133 mmol/L (136-145) Potassium Level 3.5 mmol/L (3.5-5.1) Chloride Level 96 mmol/L (98-107) Carbon Dioxide Level 34 mmol/L (21-32) Anion Gap 3 (6-14) Blood Urea Nitrogen 13 mg/dL (7-20) Creatinine 1.1 mg/dL (0.6-1.0) Estimated GFR (Cockcroft-Gault) 51.6 Glucose Level 118 mg/dL (70-99) Calcium Level 8.7 mg/dL (8.5-10.1) Test 04/03/21 14:53 04/03/21 20:45 04/04/21 06:45 Heparin Anti-Xa Act, Unfractionated < 0.10 IU/mL (0.30-0.70) 0.12 IU/mL (0.30-0.70) 0.58 IU/mL (0.30-0.70) Sodium Level 132 mmol/L (136-145) Potassium Level 2.9 mmol/L (3.5-5.1) Chloride Level 93 mmol/L (98-107) Carbon Dioxide Level 37 mmol/L (21-32) Anion Gap 2 (6-14) Blood Urea Nitrogen 9 mg/dL (7-20) Creatinine 1.2 mg/dL (0.6-1.0) Estimated GFR (Cockcroft-Gault) 46.6 Glucose Level 115 mg/dL (70-99) Calcium Level 8.5 mg/dL (8.5-10.1) Laboratory Tests Test 04/03/21 14:53 04/03/21 20:45 04/04/21 06:45 Heparin Anti-Xa Act, Unfractionated < 0.10 IU/mL (0.30-0.70) 0.12 IU/mL (0.30-0.70) 0.58 IU/mL (0.30-0.70) Sodium Level 132 mmol/L (136-145) Potassium Level 2.9 mmol/L (3.5-5.1) Chloride Level 93 mmol/L (98-107) Carbon Dioxide Level 37 mmol/L (21-32) Anion Gap 2 (6-14) Blood Urea Nitrogen 9 mg/dL (7-20) Creatinine 1.2 mg/dL (0.6-1.0) Estimated GFR (Cockcroft-Gault) 46.6 Glucose Level 115 mg/dL (70-99) Calcium Level 8.5 mg/dL (8.5-10.1) Medications Active Scripts Medications Dose Route/Sig Max Daily Dose Days Date Category Oxycodone Hcl 5 Mg Capsule 1 Cap PO QID PRN 10/28/17 Rx Levaquin (Levofloxacin) 750 Mg Tablet 750 Mg PO DAILY06 04/06/16 Rx Benicar Hct 40-12.5 Mg Tablet (Olmesartan/Hydrochlorothiazide) 1 Each Tablet 1 Tab PO DAILY 03/30/15 Reported Lipitor (Atorvastatin Calcium) 20 Mg Tablet 1 Tab PO DAILY 03/30/15 Reported Proventil Hfa Inhaler (Albuterol Sulfate) 6.7 Gm Hfa.aer.ad 1-2 Puff IH PRN PRN 03/30/15 Reported Impression . IMPRESSION: 1. Acute on chronic hypoxic and hypercapnic respiratory failure, likely secondary to right heart failure versus left heart failure and could be combined heart failure. Clinically, less likely pneumonia. Clinically, less likely COVID. Rapid test for COVID is negative. 2. Underlying obstructive sleep apnea along with obesity hypoventilation syndrome with cor pulmonale. 3. Mildly increased troponin. 4. Mildly increased lactic acid from increased work of breathing, now improved. 5. Abnormal chest x-ray with bilateral interstitial infiltrates, likely congestive heart failure. 6. Right lower extremity cellulitis. Plan . 1. Clinically doing well. Remains on nasal cannula during the day. BiPAP at nighttime as needed 3. Diuresis. 4. echocardiogram. As outpatient 5. Off narcotics and benzodiazepines. 6. Continue nebulizer. 7. Smoking cessation counseling provided. 8. Discussed with RN and respiratory therapist. 9. Discussed with hospitalist. From a pulmonary standpoint she could be discharged. She would need a 6-minute walk test as an outpatient evaluation for sleep apnea by sleep study FELIPE HOUSE MD Apr 04, 2021 10:27
--- NOTE | 2021-04-04 10:43 | PDOC ---
Infectious Disease Note Subjective Subjective Patient is feeling better ROS ROS No nausea vomiting diarrhea chest pain shortness of breath. Fever is improved but low-grade fever persist Vital Sign Vital Signs Vital Signs Date Time Temp Pulse Resp B/P (MAP) Pulse Ox O2 Delivery O2 Flow Rate FiO2 04/04/21 09:03 91 170/74 04/04/21 08:22 94 BiPAP/CPAP 04/04/21 07:00 100.7 20 100.7 04/03/21 23:00 5.0 Physical Exam PHYSICAL EXAM GENERAL: Alert and oriented female, not in any distress. VITAL SIGNS: Stable HEENT: NAD. NECK: Supple, no JVP, no lymphadenopathy. LUNGS: Clear. HEART: S1, S2 regular. ABDOMEN: Soft and nontender, no organomegaly. EXTREMITIES: Rather large. Right leg has a necrotic ulcer with purulent drainage in the front of the lower villalpando as well as on the back side of the leg and extensive erythema involving the leg going up to the distal thigh. NEUROLOGIC: The patient is alert, awake, and appropriate. No focal neurologic deficit. Labs Lab Laboratory Tests Test 04/03/21 14:53 04/03/21 20:45 04/04/21 06:45 Heparin Anti-Xa Act, Unfractionated < 0.10 IU/mL (0.30-0.70) 0.12 IU/mL (0.30-0.70) 0.58 IU/mL (0.30-0.70) Sodium Level 132 mmol/L (136-145) Potassium Level 2.9 mmol/L (3.5-5.1) Chloride Level 93 mmol/L (98-107) Carbon Dioxide Level 37 mmol/L (21-32) Anion Gap 2 (6-14) Blood Urea Nitrogen 9 mg/dL (7-20) Creatinine 1.2 mg/dL (0.6-1.0) Estimated GFR (Cockcroft-Gault) 46.6 Glucose Level 115 mg/dL (70-99) Calcium Level 8.5 mg/dL (8.5-10.1) Objective Assessment IMPRESSION: 1. Extensive right lower extremity cellulitis. 2. Right lower extremity two infected ulcers. 3. Fever. 4. Leukocytosis. 5. Super morbid obesity. 6. Chronic obstructive pulmonary disease. 7. Hypertension. Plan Plan of Care Continue antibiotics Continue supportive care PT OT Need weight loss Redness in the leg is improving BRISA HAYS MD Apr 04, 2021 10:43
[2021-04-04] MEDS ORDERED: METOPROLOL SUCC 24HR ER 25 MG TAB.ER.24H. PO ONE (12:30)
--- NOTE | 2021-04-04 12:34 | PDOC ---
MENG VELIZ SOFT TILE SETTER 04/04/21 1234: CARDIO Progress Notes Date and Time Date of Service 04/04/2021 Time of Evaluation 1200 Subjective Subjective: No Chest Pain, No shortness of breath, No Palpitations Vitals Vitals Vital Signs Date Time Temp Pulse Resp B/P (MAP) Pulse Ox O2 Delivery O2 Flow Rate FiO2 04/04/21 09:03 91 170/74 04/04/21 08:22 94 BiPAP/CPAP 04/04/21 07:45 5.0 04/04/21 07:00 100.7 20 100.7 Weight Weight [ ] Input and Output Intake and Output Intake and Output 04/04/21 07:00 Intake Total 1270 ml Output Total 750 ml Balance 520 ml Intake Oral 1170 ml IV Total 100 ml Output Urine Total 750 ml Laboratory Labs Laboratory Tests Test 04/03/21 14:53 04/03/21 20:45 04/04/21 06:45 Heparin Anti-Xa Act, Unfractionated < 0.10 IU/mL (0.30-0.70) 0.12 IU/mL (0.30-0.70) 0.58 IU/mL (0.30-0.70) Sodium Level 132 mmol/L (136-145) Potassium Level 2.9 mmol/L (3.5-5.1) Chloride Level 93 mmol/L (98-107) Carbon Dioxide Level 37 mmol/L (21-32) Anion Gap 2 (6-14) Blood Urea Nitrogen 9 mg/dL (7-20) Creatinine 1.2 mg/dL (0.6-1.0) Estimated GFR (Cockcroft-Gault) 46.6 Glucose Level 115 mg/dL (70-99) Calcium Level 8.5 mg/dL (8.5-10.1) Physical Exam HEENT: Neck Supple W Full Motion Chest: Symmetric LUNGS: Other (diminished) Heart: RRR (SR) Abdomen: Other (obese ) Extremities: Other (2+ bilateral LE edema, right calf erythema) Neurology: alert, oriented, follow commands Assessment Assessment 1. Acute respiratory failure secondary to CHF 2. Acute on chronic diastolic CHF 3. RLE cellulitis/fever 4. Sepsis 5. NSTEMI; trop peak Troponin peak 2.9. Probable demand ischemia. type 2 CP free. EF and WM nml 6. Morbid obesity. Recommendations ASA, statin. Add toprol, continue norvasc. Replace K. olasix therapy. Check Mg Continue antibiotic therapy Ischemic evaluation as an outpt. SS consult. Encourage to follow up. Justicifation of Admission Dx: Justifications for Admission: Justification of Admission Dx: Yes Comminuty Aquired Pneumonia: Hypoxemia PAOLO ALANIZ MD 04/04/21 1650: CARDIO Progress Notes Assessment Assessment Patient seen and examined The patient continues to feel better. Plan Plan Patient seen and examined I agree with our nurse practitioners assessment and plan. Acute respiratory failure secondary to CHF Acute on chronic diastolic CHF RLE cellulitis/fever. Continue antibiotics. NSTEMI; trop peak Troponin peak 2.9. Probable demand ischemia. type 2 CP free. EF and WM nml. Continue aspirin, beta-blockers and statins. Gradually increase activity. Outpatient ischemia evaluation. Morbid obesity. MENG VELIZ APRN Apr 04, 2021 12:34 PAOLO ALANIZ MD Apr 04, 2021 16:50
[2021-04-04] MEDS: ACETAMINOPHEN 325 MG TABLET. PO PRN (12:35)
[2021-04-04] MEDS ORDERED: FUROSEMIDE 40 MG/4 ML VIAL. IVP ONE (12:45)
--- NOTE | 2021-04-04 14:50 | NUR ---
SS following up with discharge planning. SS reviewed pt chart and discussed with pt RN. Pt is currently requiring oxygen at five liters nasal canula with intermittent BIPAP at 40%. Pt currently on BIPAP at this time. COVID19 negative. Pt on IV Zosyn and PO Zyvox. Pt has no home oxygen. Self pay. Med Assist reported that pt recently cashed out $7000 from her 401K and is over resources for Medicaid at this time. Pt notified RN that her mother has a CPAP machine that she can use if needed. Pt asleep in room when SS attempted to visit with her. Pt will need six minute walk prior to discharge. SS will continue to follow for discharge planning.
[2021-04-05] MEDS: PIPERACILLIN/TAZOBACTAM 3.375 GM in IV NORMAL SALINE 50ML 50 ML IV SCH ×3 (00:37→11:47)
[2021-04-05 02:31] VITALS: BP 183/86
[2021-04-05 04:31] LABS: HEMATOCRIT 30.2 % (36.0-47.0); HEMOGLOBIN 10.3 g/dL (12.0-15.5); RED BLOOD COUNT 3.32 x10^6/uL (3.50-5.40); RED CELL DISTRIBUTION WIDTH 14.7 % (11.5-14.5); WHITE BLOOD COUNT 9.4 x10^3/uL (4.0-11.0)
[2021-04-05 04:42] LABS: CALCIUM 8.7 mg/dL (8.5-10.1); CREATININE 1.1 mg/dL (0.6-1.0); GFR 51.6; POTASSIUM 3.3 mmol/L (3.5-5.1)
[2021-04-05] MEDS: PANTOPRAZOLE 40 MG TABLET.DR. PO SCH (05:26)
[2021-04-05 07:00] VITALS: BP 123/75
[2021-04-05] MEDS: hydroCHLOROthiazide 12.5 MG CAPSULE PO SCH (07:48)
[2021-04-05] MEDS: LACTOBACILLUS RHAMNOSUS GG 1 CAPSULE. PO SCH (07:49)
[2021-04-05] MEDS: LINEZOLID 600 MG TABLET PO SCH (07:49)
[2021-04-05] MEDS: LOSARTAN POTASSIUM 50 MG TABLET. PO SCH (07:49)
[2021-04-05] MEDS: ASPIRIN ENTERIC COATED 81 MG TABLET.DR. PO SCH (07:50)
[2021-04-05] MEDS: ATORVASTATIN CALCIUM 20 MG TABLET PO SCH (07:50)
[2021-04-05] MEDS ORDERED: METOPROLOL SUCC 24HR ER 25 MG TAB.ER.24H. PO SCH (09:00)
[2021-04-05] MEDS ORDERED: CARVEDILOL 6.25 MG TABLET. PO SCH (09:00)
--- NOTE | 2021-04-05 09:21 | PDOC ---
PROGRESS NOTES Date of Service: DATE: 04/05/21 TIME: : Chief Complaint Chief Complaint impression Sepsis Right lower extremity cellulitis with ulcerations Acute on chronic hypoxic and hypercapnic respiratory failure Bilateral bibasilar pneumonia, possible gram-negative organism, possible aspiration MINA Cor pulmonale Elevated troponins MAURA due to vasomotor nephropathy Lactic acidemia Super super morbid obesity Anemia of chronic disease Severe protein malnutrition 9-14 hypoxic and hypercapnic respiratory failure, likely secondary to right heart failure versus left heart failure and could be combined heart failure. Clinically, less likely pneumonia. Clinically, less likely COVID. Rapid test for COVID is negative. Appreciate pulmonary and surgery recommendationscontinue BiPAP and O2 supplementation. Repeat ABG. Pending cardiology evaluation ID evaluation Continue empiric IV antibiotics Lovenox DVT prophylaxis Protonix GI prophylaxis ADA diet CODE STATUS full Discussed with RN and SW Disposition inpatient management as above DPOA: Designated necrotic ulcer with purulent drainage in the front of the lower villalpando as well as on the back side of the leg extensive erythema involving the leg going up to the distal thigh. Extensive right lower extremity cellulitis./ Right lower extremity two infected ulcers. Fever. Leukocytosis. CONTINUE IV ZOSYN 9-15 hypoxic and hypercapnic respiratory failure, likely secondary to right heart failure versus left heart failure and could be combined heart failure. Clinically, less likely pneumonia. Clinically, less likely COVID. Rapid test for COVID is negative. Appreciate pulmonary and surgery recommendationscontinue BiPAP and O2 supplementation. Repeat ABG. Pending cardiology evaluation ID evaluation Continue empiric IV antibiotics Lovenox DVT prophylaxis Protonix GI prophylaxis ADA diet CODE STATUS full Discussed with RN and SW Disposition inpatient management as above DPOA: Designated necrotic ulcer with purulent drainage in the front of the lower villalpando as well as on the back side of the leg extensive erythema involving the leg going up to the distal thigh. Extensive right lower extremity cellulitis./ Right lower extremity two infected ulcers. Fever. Leukocytosis. D/C IV ZOSYN BEGIN PO ZYVOX BID X 10 DAYS History of Present Illness History of Present Illness 55-year-old female presents with severe shortness of breath. It has been occurring for a couple of weeks. It got particularly bad this morning. She came in by ambulance. She has lower extremity edema. She also was hypoxic with a sat of 71% on 6 liters. She is also tachycardic, appears to be septic. 04/01/2021 No acute events overnight. Patient continues to be on BiPAP and is saturating 96% on 60% FiO2. This will be titrated down to 40% per pulmonology pending further ABG. Fever overnight with T-max of 102.7. Patient seen and examined bedside with altered mental status. But she is able to keep the BiPAP on without agitation. However patient does require some sedatives such as Ativan to help her keep the mask on. Patient's chart, labs, images were reviewed and discussed with RN A total of 35 minutes of critical care time was spent in reviewing chart, labs, and images. Discussed with RN and SW. 04/02/2021 No acute events overnight. Patient did have her troponins increased to 2.9. Heparin drip was started. Patient is actually more alert and awake and was able to maintain O2 saturations off of BiPAP. We will now just start BiPAP only nocturnally per pulmonology. Repeat ABG as needed. Pending cardiology evaluation. Patient's chart, labs, images were reviewed and discussed with RN A total of 33 minutes of critical care time was spent in reviewing chart, labs, and images. Discussed with RN and SW. Vitals Vitals Vital Signs Date Time Temp Pulse Resp B/P (MAP) Pulse Ox O2 Delivery O2 Flow Rate FiO2 04/05/21 08:49 93 183/86 04/05/21 08:15 Nasal Cannula 5.0 04/05/21 07:00 98.2 22 97 98.2 Physical Exam Physical Exam hypoxic and hypercapnic respiratory failure, likely secondary to right heart failure versus left heart failure and could be combined heart failure. Clinically, less likely pneumonia. Clinically, less likely COVID. Rapid test for COVID is negative. necrotic ulcer with purulent drainage in the front of the lower villalpando as well as on the back side of the leg and extensive erythema involving the leg going up to the distal thigh. GENERAL: Alert and oriented female, not in any distress. VITAL SIGNS: Stable HEENT: NAD. NECK: Supple, no JVP, no lymphadenopathy. LUNGS: Clear. HEART: S1, S2 regular. ABDOMEN: Soft and nontender, no organomegaly. EXTREMITIES: Rather large. Right leg has a necrotic ulcer with purulent drainage in the front of the lower villalpando as well as on the back side of the leg and extensive erythema involving the leg going up to the distal thigh. NEUROLOGIC: The patient is alert, awake, and appropriate. No focal neurologic deficit. General: Alert, Cooperative, mild distress Heart: Regular rate Lungs: Clear Abdomen: Normal bowel sounds Extremities: No clubbing, No cyanosis Labs LABS Laboratory Tests Test 04/04/21 12:45 04/05/21 04:00 Heparin Anti-Xa Act, Unfractionated < 0.10 IU/mL (0.30-0.70) White Blood Count 9.4 x10^3/uL (4.0-11.0) Red Blood Count 3.32 x10^6/uL (3.50-5.40) Hemoglobin 10.3 g/dL (12.0-15.5) Hematocrit 30.2 % (36.0-47.0) Mean Corpuscular Volume 91 fL (79-100) Mean Corpuscular Hemoglobin 31 pg (25-35) Mean Corpuscular Hemoglobin Concent 34 g/dL (31-37) Red Cell Distribution Width 14.7 % (11.5-14.5) Platelet Count 184 x10^3/uL (140-400) Sodium Level 134 mmol/L (136-145) Potassium Level 3.3 mmol/L (3.5-5.1) Chloride Level 95 mmol/L (98-107) Carbon Dioxide Level 43 mmol/L (21-32) Anion Gap -4 (6-14) Blood Urea Nitrogen 8 mg/dL (7-20) Creatinine 1.1 mg/dL (0.6-1.0) Estimated GFR (Cockcroft-Gault) 51.6 Glucose Level 114 mg/dL (70-99) Calcium Level 8.7 mg/dL (8.5-10.1) Assessment and Plan Assessmemt and Plan Problems Medical Problems: (1) Cellulitis of lower extremity Status: Acute (2) Respiratory failure with hypoxia Status: Acute (3) Sepsis Status: Acute Comment Review of Relevant I have reviewed the following items sunitha (where applicable) has been applied. Labs Laboratory Tests Test 04/03/21 14:53 04/03/21 20:45 04/04/21 06:45 04/04/21 12:45 Heparin Anti-Xa Act, Unfractionated < 0.10 IU/mL (0.30-0.70) 0.12 IU/mL (0.30-0.70) 0.58 IU/mL (0.30-0.70) < 0.10 IU/mL (0.30-0.70) Sodium Level 132 mmol/L (136-145) Potassium Level 2.9 mmol/L (3.5-5.1) Chloride Level 93 mmol/L (98-107) Carbon Dioxide Level 37 mmol/L (21-32) Anion Gap 2 (6-14) Blood Urea Nitrogen 9 mg/dL (7-20) Creatinine 1.2 mg/dL (0.6-1.0) Estimated GFR (Cockcroft-Gault) 46.6 Glucose Level 115 mg/dL (70-99) Calcium Level 8.5 mg/dL (8.5-10.1) Magnesium Level 2.2 mg/dL (1.8-2.4) Test 04/05/21 04:00 White Blood Count 9.4 x10^3/uL (4.0-11.0) Red Blood Count 3.32 x10^6/uL (3.50-5.40) Hemoglobin 10.3 g/dL (12.0-15.5) Hematocrit 30.2 % (36.0-47.0) Mean Corpuscular Volume 91 fL (79-100) Mean Corpuscular Hemoglobin 31 pg (25-35) Mean Corpuscular Hemoglobin Concent 34 g/dL (31-37) Red Cell Distribution Width 14.7 % (11.5-14.5) Platelet Count 184 x10^3/uL (140-400) Sodium Level 134 mmol/L (136-145) Potassium Level 3.3 mmol/L (3.5-5.1) Chloride Level 95 mmol/L (98-107) Carbon Dioxide Level 43 mmol/L (21-32) Anion Gap -4 (6-14) Blood Urea Nitrogen 8 mg/dL (7-20) Creatinine 1.1 mg/dL (0.6-1.0) Estimated GFR (Cockcroft-Gault) 51.6 Glucose Level 114 mg/dL (70-99) Calcium Level 8.7 mg/dL (8.5-10.1) Laboratory Tests Test 04/04/21 12:45 04/05/21 04:00 Heparin Anti-Xa Act, Unfractionated < 0.10 IU/mL (0.30-0.70) White Blood Count 9.4 x10^3/uL (4.0-11.0) Red Blood Count 3.32 x10^6/uL (3.50-5.40) Hemoglobin 10.3 g/dL (12.0-15.5) Hematocrit 30.2 % (36.0-47.0) Mean Corpuscular Volume 91 fL (79-100) Mean Corpuscular Hemoglobin 31 pg (25-35) Mean Corpuscular Hemoglobin Concent 34 g/dL (31-37) Red Cell Distribution Width 14.7 % (11.5-14.5) Platelet Count 184 x10^3/uL (140-400) Sodium Level 134 mmol/L (136-145) Potassium Level 3.3 mmol/L (3.5-5.1) Chloride Level 95 mmol/L (98-107) Carbon Dioxide Level 43 mmol/L (21-32) Anion Gap -4 (6-14) Blood Urea Nitrogen 8 mg/dL (7-20) Creatinine 1.1 mg/dL (0.6-1.0) Estimated GFR (Cockcroft-Gault) 51.6 Glucose Level 114 mg/dL (70-99) Calcium Level 8.7 mg/dL (8.5-10.1) Medications Current Medications Sodium Chloride 1,860 ml @ 1,860 mls/hr Q1H IV Last administered on 03/31/21at 12:33; Start 03/31/21 at 09:45; Stop 03/31/21 at 22:11; Status DC Sodium Chloride 500 ml @ 1,000 mls/hr PRN Q30MIN PRN IV SEE COMMENTS; Start 03/31/21 at 09:45 Vancomycin HCl (Vanco Per Pharmacy) 1 each PRN DAILY PRN MC SEE COMMENTS Last administered on 04/01/21at 10:01; Start 03/31/21 at 09:45; Stop 04/01/21 at 12:31; Status DC Levofloxacin/ Dextrose 150 ml @ 100 mls/hr 1X ONCE IV Last administered on 03/31/21at 10:03; Start 03/31/21 at 09:45; Stop 03/31/21 at 11:14; Status DC Vancomycin HCl 2 gm/Sodium Chloride 500 ml @ 250 mls/hr 1X ONCE IV Last administered on 03/31/21at 11:33; Start 03/31/21 at 10:00; Stop 03/31/21 at 11:59; Status DC Acetaminophen (Tylenol) 1,000 mg 1X ONCE PO Last administered on 03/31/21at 12:01; Start 03/31/21 at 10:30; Stop 03/31/21 at 10:31; Status DC Atorvastatin Calcium (Lipitor) 20 mg DAILY PO Last administered on 04/03/21at 09:13; Start 04/01/21 at 09:00; Stop 04/03/21 at 22:59; Status DC Non-Formulary Medication (Albuterol Sulfate (Proventil Hfa Inhaler)) . PRN PRN IH WHEEZING; Start 03/31/21 at 12:15; Status UNV Losartan Potassium (Cozaar) 100 mg DAILY PO Last administered on 04/05/21at 07:49; Start 03/31/21 at 14:00 Oxycodone HCl (Roxicodone) 5 mg PRN QID PRN PO MODERATE TO SEVERE PAIN; Start 03/31/21 at 12:30; Stop 04/01/21 at 08:21; Status DC Hydrochlorothiazide (Microzide) 12.5 mg DAILY PO Last administered on 04/05/21at 07:48; Start 03/31/21 at 14:00 Albuterol Sulfate (Ventolin Neb Soln) 2.5 mg PRN Q4HRS PRN NEB SHORTNESS OF BREATH; Start 03/31/21 at 12:30 Vancomycin HCl 2 gm/Sodium Chloride 500 ml @ 250 mls/hr Q12H IV Last administered on 04/01/21at 12:18; Start 03/31/21 at 23:30; Stop 04/01/21 at 12:27; Status DC Vancomycin HCl (Vancomycin Trough Level) 1 each 1X ONCE MC ; Start 04/01/21 at 23:00; Stop 04/01/21 at 12:34; Status DC Lorazepam (Ativan) 0.25 mg PRN Q6HRS PRN PO ANXIETY / AGITATION; Start 03/31/21 at 17:15; Stop 04/01/21 at 08:21; Status DC Morphine Sulfate (Morphine Sulfate) 2 mg PRN Q2HR PRN IV MODERATE TO SEVERE P AIN Last administered on 04/01/21at 01:50; Start 03/31/21 at 17:15; Stop 04/01/21 at 08:21; Status DC Sodium Chloride 1,000 ml @ 75 mls/hr 1X ONCE IV Last administered on 03/31/21at 22:11; Start 03/31/21 at 17:15; Stop 04/01/21 at 06:34; Status DC Acetaminophen (Tylenol) 650 mg PRN Q6HRS PRN PO MILD PAIN / TEMP > 100.3'F Last administered on 04/04/21at 12:35; Start 04/01/21 at 08:45 Piperacillin Sod/ Tazobactam Sod (Zosyn Per Pharmacy) 1 each PRN DAILY PRN MC SEE COMMENTS; Start 04/01/21 at 12:30 Enoxaparin Sodium (Lovenox 30mg Syringe) 30 mg 1X ONCE SQ Last administered on 04/01/21at 14:08; Start 04/01/21 at 13:00; Stop 04/01/21 at 13:01; Status DC Pantoprazole Sodium (Protonix) 40 mg DAILYAC PO Last administered on 04/05/21at 05:26; Start 04/01/21 at 14:00 Piperacillin Sod/ Tazobactam Sod 3.375 gm/Sodium Chloride 50 ml @ 100 mls/hr Q6HRS IV Last administered on 04/05/21at 05:26; Start 04/01/21 at 13:30 Lactobacillus Rhamnosus (Culturelle) 1 cap BID PO Last administered on 04/05/21at 07:49; Start 04/01/21 at 21:00 Linezolid (Zyvox) 600 mg BID PO Last administered on 04/05/21at 07:49; Start 04/01/21 at 21:00 Furosemide (Lasix) 40 mg 1X ONCE IVP Last administered on 04/01/21at 17:05; Start 04/01/21 at 16:30; Stop 04/01/21 at 16:31; Status DC Morphine Sulfate (Morphine Sulfate) 2 mg PRN Q2HR PRN IV SEVERE PAIN 7-10 Last administered on 04/01/21at 21:11; Start 04/01/21 at 21:00 Heparin Sodium/ Dextrose 250 ml @ 10 mls/hr CONT PRN IV PER PROTOCOL Last administered on 04/04/21at 01:02; Start 04/02/21 at 08:30 Heparin Sodium (Porcine) (Heparin Sodium) 4,300 unit PRN Q6HRS PRN IV FOR UFH LEVEL LESS THAN 0.2 Last administered on 04/04/21at 00:09; Start 04/02/21 at 08:30 Potassium Chloride (Klor-Con) 40 meq 1X ONCE PO Last administered on 04/02/21at 20:24; Start 04/02/21 at 19:45; Stop 04/02/21 at 19:46; Status DC Aspirin (Ecotrin) 81 mg DAILYWBKFT PO Last administered on 04/05/21at 07:50; Start 04/04/21 at 08:00 Amlodipine Besylate (Norvasc) 5 mg DAILY PO Last administered on 04/04/21at 09:02; Start 04/04/21 at 09:00; Stop 04/05/21 at 08:19; Status DC Atorvastatin Calcium (Lipitor) 40 mg DAILY PO Last administered on 04/05/21at 07:50; Start 04/04/21 at 09:00 Potassium Chloride (Klor-Con) 40 meq 1X ONCE PO Last administered on 04/04/21at 09:02; Start 04/04/21 at 08:15; Stop 04/04/21 at 08:18; Status DC Metoprolol Succinate (Toprol Xl) 25 mg 1X ONCE PO Last administered on 04/04/21at 12:36; Start 04/04/21 at 12:30; Stop 04/04/21 at 12:31; Status DC Metoprolol Succinate (Toprol Xl) 25 mg DAILY PO Last administered on 04/05/21at 07:49; Start 04/05/21 at 09:00; Stop 04/05/21 at 08:19; Status DC Potassium Chloride (Klor-Con) 40 meq 1X ONCE PO Last administered on 04/04/21at 12:36; Start 04/04/21 at 12:30; Stop 04/04/21 at 12:31; Status DC Potassium Chloride (Klor-Con) 40 meq 1X ONCE PO ; Start 04/04/21 at 12:30; Stop 04/04/21 at 12:31; Status UNV Furosemide (Lasix) 40 mg 1X ONCE IVP Last administered on 04/04/21at 12:39; Start 04/04/21 at 12:45; Stop 04/04/21 at 12:46; Status DC Potassium Chloride (Klor-Con) 40 meq 1X ONCE PO Last administered on 04/04/21at 18:18; Start 04/04/21 at 18:00; Stop 04/04/21 at 18:01; Status DC Amlodipine Besylate (Norvasc) 10 mg DAILY PO Last administered on 04/05/21at 08:29; Start 04/05/21 at 09:00 Carvedilol (Coreg) 6.25 mg BIDWMEALS PO Last administered on 04/05/21at 08:49; Start 04/05/21 at 09:00 Active Scripts Active Oxycodone Hcl 5 Mg Capsule 1 Cap PO QID PRN Levaquin (Levofloxacin) 750 Mg Tablet 750 Mg PO DAILY06 Reported Benicar Hct 40-12.5 Mg Tablet (Olmesartan/Hydrochlorothiazide) 1 Each Tablet 1 Tab PO DAILY Lipitor (Atorvastatin Calcium) 20 Mg Tablet 1 Tab PO DAILY Proventil Hfa Inhaler (Albuterol Sulfate) 6.7 Gm Hfa.aer.ad 1-2 Puff IH PRN PRN Vitals/I & O Vital Sign - Last 24 Hours 04/04/21 04/04/21 04/04/21 04/04/21 11:45 12:03 12:36 15:00 Temp 99.1 94.5 99.1 94.5 Pulse 93 84 69 Resp 22 24 B/P (MAP) 124/61 (82) 124/61 114/54 (74) Pulse Ox 88 94 87 O2 Delivery Nasal Cannula Nasal Cannula Nasal Cannula O2 Flow Rate 5.0 5.0 5.0 04/04/21 04/04/21 04/04/21 04/04/21 17:10 19:20 20:00 20:33 Temp 94.5 97.7 94.5 97.7 Pulse 82 Resp 20 20 B/P (MAP) 114/54 (74) 149/69 (95) Pulse Ox 87 100 96 O2 Delivery Nasal Cannula Nasal Cannula Nasal Cannula O2 Flow Rate 5.0 5.0 5.0 5.0 9/04/04/21 04/05/21 04/05/21 22:49 23:57 02:18 02:31 Temp 97.9 98.1 97.9 98.1 Pulse 90 93 Resp 21 20 B/P (MAP) 142/60 (87) 183/86 (118) Pulse Ox 95 96 96 99 O2 Delivery Nasal Cannula BiPAP/CPAP BiPAP/CPAP Nasal Cannula O2 Flow Rate 5.0 5.0 04/05/21 04/05/21 04/05/21 04/05/21 04:28 07:00 07:49 07:49 Temp 98.2 98.2 Pulse 79 93 93 Resp 22 B/P (MAP) 123/75 (91) 183/86 183/86 Pulse Ox 96 97 O2 Delivery BiPAP/CPAP Nasal Cannula O2 Flow Rate 5.0 04/05/21 04/05/21 04/05/21 08:15 08:29 08:49 Pulse 93 93 B/P (MAP) 183/86 183/86 O2 Delivery Nasal Cannula O2 Flow Rate 5.0 Intake and Output 04/04/21 04/04/21 04/05/21 15:00 23:00 07:00 Intake Total 0 ml 350 ml 1000 ml Output Total 550 ml 600 ml Balance 0 ml -200 ml 400 ml Justicifation of Admission Dx: Justifications for Admission: Justification of Admission Dx: Yes Comminuty Aquired Pneumonia: Hypoxemia SANAM HERRERA MD Apr 05, 2021 09:21
--- NOTE | 2021-04-05 09:27 | PDOC ---
Infectious Disease Note Subjective Subjective Patient is feeling better ROS ROS no n/v/d/sob Vital Sign Vital Signs Vital Signs Date Time Temp Pulse Resp B/P (MAP) Pulse Ox O2 Delivery O2 Flow Rate FiO2 04/05/21 08:49 93 183/86 04/05/21 08:15 Nasal Cannula 5.0 04/05/21 07:00 98.2 22 97 98.2 Physical Exam PHYSICAL EXAM GENERAL: Alert and oriented female, not in any distress. VITAL SIGNS: Stable HEENT: NAD. NECK: Supple, no JVP, no lymphadenopathy. LUNGS: Clear. HEART: S1, S2 regular. ABDOMEN: Soft and nontender, no organomegaly. EXTREMITIES: Rather large. Right leg has a necrotic ulcer with purulent drainage in the front of the lower villalpando as well as on the back side of the leg and extensive erythema involving the leg going up to the distal thigh. NEUROLOGIC: The patient is alert, awake, and appropriate. No focal neurologic deficit. Labs Lab Laboratory Tests Test 04/04/21 12:45 04/05/21 04:00 Heparin Anti-Xa Act, Unfractionated < 0.10 IU/mL (0.30-0.70) White Blood Count 9.4 x10^3/uL (4.0-11.0) Red Blood Count 3.32 x10^6/uL (3.50-5.40) Hemoglobin 10.3 g/dL (12.0-15.5) Hematocrit 30.2 % (36.0-47.0) Mean Corpuscular Volume 91 fL (79-100) Mean Corpuscular Hemoglobin 31 pg (25-35) Mean Corpuscular Hemoglobin Concent 34 g/dL (31-37) Red Cell Distribution Width 14.7 % (11.5-14.5) Platelet Count 184 x10^3/uL (140-400) Sodium Level 134 mmol/L (136-145) Potassium Level 3.3 mmol/L (3.5-5.1) Chloride Level 95 mmol/L (98-107) Carbon Dioxide Level 43 mmol/L (21-32) Anion Gap -4 (6-14) Blood Urea Nitrogen 8 mg/dL (7-20) Creatinine 1.1 mg/dL (0.6-1.0) Estimated GFR (Cockcroft-Gault) 51.6 Glucose Level 114 mg/dL (70-99) Calcium Level 8.7 mg/dL (8.5-10.1) Objective Assessment IMPRESSION: 1. Extensive right lower extremity cellulitis. 2. Right lower extremity two infected ulcers. 3. Fever. 4. Leukocytosis. 5. Super morbid obesity. 6. Chronic obstructive pulmonary disease. 7. Hypertension. Plan Plan of Care Continue antibiotics,, change to po Continue supportive care PT OT Need weight loss Redness in the leg has improved BRISA HAYS MD Apr 05, 2021 09:27
--- NOTE | 2021-04-05 10:33 | NUR ---
SS following up with discharge planning. SS reviewed pt chart and discussed with pt RN. Pt is currently requiring oxygen at five liters nasal canula. COVID19 negative. BIPAP HS. Pt on IV Zosyn and PO Zyvox. PT recommended home with bariatric walker. Six minute walk ordered. Self pay. Pt over resources for Medicaid at this time. SS met with pt and discussed home oxygen and walker. Pt agreeable to pay $120/month for oxygen and cost of walker. Referral phoned and faxed to [facility], ; fax [phone], for oxygen and walker. SS awaiting 6 minute walk results and scripts. Resources provided to pt for outpatient follow up and Good RX. Pt reporting that she has CPAP at home that she is able to use. SS will continue to follow for discharge planning. Addendum: 04/05/21 at 1432 by RACHELL FRIAS SS Pt needing four liters at rest and four liters with exertion. Script received for walker and oxygen and sent to [facility]. [facility] spoke with pt. Oxygen tank to provided to pt for home. Walker delivered to pt in room.
[2021-04-05 11:00] VITALS: BP 105/58
--- NOTE | 2021-04-05 11:06 | PDOC ---
PULMONARY PROGRESS NOTES DATE: 04/05/21 TIME: 11:05 Subjective Doing well. Remains on nasal cannula during the day. Using BiPAP at nighttime Vitals Vital Signs Date Time Temp Pulse Resp B/P (MAP) Pulse Ox O2 Delivery O2 Flow Rate FiO2 04/05/21 08:49 93 183/86 04/05/21 08:15 Nasal Cannula 5.0 04/05/21 07:00 98.2 22 97 98.2 General: Alert, No acute distress Lungs: Clear Cardiovascular: S1 Abdomen: Soft, Other (Marked obesity.) Extremities: Other (Right lower extremity cellulitis.) Labs Laboratory Tests Test 04/03/21 14:53 04/03/21 20:45 04/04/21 06:45 04/04/21 12:45 Heparin Anti-Xa Act, Unfractionated < 0.10 IU/mL (0.30-0.70) 0.12 IU/mL (0.30-0.70) 0.58 IU/mL (0.30-0.70) < 0.10 IU/mL (0.30-0.70) Sodium Level 132 mmol/L (136-145) Potassium Level 2.9 mmol/L (3.5-5.1) Chloride Level 93 mmol/L (98-107) Carbon Dioxide Level 37 mmol/L (21-32) Anion Gap 2 (6-14) Blood Urea Nitrogen 9 mg/dL (7-20) Creatinine 1.2 mg/dL (0.6-1.0) Estimated GFR (Cockcroft-Gault) 46.6 Glucose Level 115 mg/dL (70-99) Calcium Level 8.5 mg/dL (8.5-10.1) Magnesium Level 2.2 mg/dL (1.8-2.4) Test 04/05/21 04:00 White Blood Count 9.4 x10^3/uL (4.0-11.0) Red Blood Count 3.32 x10^6/uL (3.50-5.40) Hemoglobin 10.3 g/dL (12.0-15.5) Hematocrit 30.2 % (36.0-47.0) Mean Corpuscular Volume 91 fL (79-100) Mean Corpuscular Hemoglobin 31 pg (25-35) Mean Corpuscular Hemoglobin Concent 34 g/dL (31-37) Red Cell Distribution Width 14.7 % (11.5-14.5) Platelet Count 184 x10^3/uL (140-400) Sodium Level 134 mmol/L (136-145) Potassium Level 3.3 mmol/L (3.5-5.1) Chloride Level 95 mmol/L (98-107) Carbon Dioxide Level 43 mmol/L (21-32) Anion Gap -4 (6-14) Blood Urea Nitrogen 8 mg/dL (7-20) Creatinine 1.1 mg/dL (0.6-1.0) Estimated GFR (Cockcroft-Gault) 51.6 Glucose Level 114 mg/dL (70-99) Calcium Level 8.7 mg/dL (8.5-10.1) Laboratory Tests Test 04/04/21 12:45 04/05/21 04:00 Heparin Anti-Xa Act, Unfractionated < 0.10 IU/mL (0.30-0.70) White Blood Count 9.4 x10^3/uL (4.0-11.0) Red Blood Count 3.32 x10^6/uL (3.50-5.40) Hemoglobin 10.3 g/dL (12.0-15.5) Hematocrit 30.2 % (36.0-47.0) Mean Corpuscular Volume 91 fL (79-100) Mean Corpuscular Hemoglobin 31 pg (25-35) Mean Corpuscular Hemoglobin Concent 34 g/dL (31-37) Red Cell Distribution Width 14.7 % (11.5-14.5) Platelet Count 184 x10^3/uL (140-400) Sodium Level 134 mmol/L (136-145) Potassium Level 3.3 mmol/L (3.5-5.1) Chloride Level 95 mmol/L (98-107) Carbon Dioxide Level 43 mmol/L (21-32) Anion Gap -4 (6-14) Blood Urea Nitrogen 8 mg/dL (7-20) Creatinine 1.1 mg/dL (0.6-1.0) Estimated GFR (Cockcroft-Gault) 51.6 Glucose Level 114 mg/dL (70-99) Calcium Level 8.7 mg/dL (8.5-10.1) Medications Active Scripts Medications Dose Route/Sig Max Daily Dose Days Date Category Oxycodone Hcl 5 Mg Capsule 1 Cap PO QID PRN 10/28/17 Rx Levaquin (Levofloxacin) 750 Mg Tablet 750 Mg PO DAILY06 04/06/16 Rx Benicar Hct 40-12.5 Mg Tablet (Olmesartan/Hydrochlorothiazide) 1 Each Tablet 1 Tab PO DAILY 03/30/15 Reported Lipitor (Atorvastatin Calcium) 20 Mg Tablet 1 Tab PO DAILY 03/30/15 Reported Proventil Hfa Inhaler (Albuterol Sulfate) 6.7 Gm Hfa.aer.ad 1-2 Puff IH PRN PRN 03/30/15 Reported Impression . IMPRESSION: 1. Acute on chronic hypoxic and hypercapnic respiratory failure, likely secondary to right heart failure versus left heart failure and could be combined heart failure. Clinically, less likely pneumonia. Clinically, less likely COVID. Rapid test for COVID is negative. 2. Underlying obstructive sleep apnea along with obesity hypoventilation syndrome with cor pulmonale. 3. Mildly increased troponin. 4. Mildly increased lactic acid from increased work of breathing, now improved. 5. Abnormal chest x-ray with bilateral interstitial infiltrates, likely congestive heart failure. 6. Right lower extremity cellulitis. Plan . 1. Clinically doing well. Remains on nasal cannula during the day. BiPAP at nighttime as needed 3. Diuresis. 4. echocardiogram. As outpatient 5. Off narcotics and benzodiazepines. 6. Continue nebulizer. 7. Smoking cessation counseling provided. 8. Discussed with RN and respiratory therapist. 9. Discussed with hospitalist. From a pulmonary standpoint she could be discharged. She would need a 6-minute walk test as an outpatient evaluation for sleep apnea by sleep study. Unfortunately she has no resources to cover for oxygen. We will see her as needed FELIPE HOUSE MD Apr 05, 2021 11:06
--- NOTE | 2021-04-05 12:55 | PDOC ---
CARDIO Progress Notes Date and Time Date of Service 04/05/2021 Time of Evaluation 1240 Subjective Subjective: No Chest Pain, No shortness of breath, No Palpitations Vitals Vitals Vital Signs Date Time Temp Pulse Resp B/P (MAP) Pulse Ox O2 Delivery O2 Flow Rate FiO2 04/05/21 11:00 98.3 78 22 105/58 (74) 95 Nasal Cannula 5.0 98.3 Weight Weight [ ] Input and Output Intake and Output Intake and Output 04/05/21 07:00 Intake Total 1350 ml Output Total 1150 ml Balance 200 ml Intake Oral 1350 ml Output Urine Total 1150 ml Laboratory Labs Laboratory Tests Test 04/04/21 12:45 04/05/21 04:00 Heparin Anti-Xa Act, Unfractionated < 0.10 IU/mL (0.30-0.70) White Blood Count 9.4 x10^3/uL (4.0-11.0) Red Blood Count 3.32 x10^6/uL (3.50-5.40) Hemoglobin 10.3 g/dL (12.0-15.5) Hematocrit 30.2 % (36.0-47.0) Mean Corpuscular Volume 91 fL (79-100) Mean Corpuscular Hemoglobin 31 pg (25-35) Mean Corpuscular Hemoglobin Concent 34 g/dL (31-37) Red Cell Distribution Width 14.7 % (11.5-14.5) Platelet Count 184 x10^3/uL (140-400) Sodium Level 134 mmol/L (136-145) Potassium Level 3.3 mmol/L (3.5-5.1) Chloride Level 95 mmol/L (98-107) Carbon Dioxide Level 43 mmol/L (21-32) Anion Gap -4 (6-14) Blood Urea Nitrogen 8 mg/dL (7-20) Creatinine 1.1 mg/dL (0.6-1.0) Estimated GFR (Cockcroft-Gault) 51.6 Glucose Level 114 mg/dL (70-99) Calcium Level 8.7 mg/dL (8.5-10.1) Physical Exam HEENT: Neck Supple W Full Motion Chest: Symmetric LUNGS: Other (diminished) Heart: RRR (SR) Abdomen: Other (obese ) Extremities: Other (2+ bilateral LE edema, right calf erythema) Neurology: alert, oriented, follow commands Assessment Assessment 1. Acute respiratory failure secondary to CHF 2. Acute on chronic diastolic CHF 3. RLE cellulitis/fever 4. Sepsis 5. NSTEMI; trop peak Troponin peak 2.9. Probable demand ischemia. type 2 CP free. EF and WM nml 6. Morbid obesity. 7. HTN urgency: improved Recommendations ASA, statin. Coreg, continue norvasc. Replace K. Continue HCTZ Continue antibiotic therapy Ischemic evaluation as an outpt. SS consult. Encourage to follow up. Justicifation of Admission Dx: Justifications for Admission: Justification of Admission Dx: Yes Comminuty Aquired Pneumonia: Hypoxemia MENG VELIZ SWITCHMAN SUPERVISOR Apr 05, 2021 12:54
--- NOTE | 2021-04-05 14:36 | PDOC3 ---
Discharge Summary Date of Admission: Mar 31, 2021 Date of Discharge: Apr 05, 2021 Follow-Up: 3-5 days Admitting Diagnosis comment: HPI HISTORY OF PRESENT ILLNESS: The patient is a pleasant 55-year-old female presents with severe shortness of breath. It has been occurring for a couple of weeks. It got particularly bad this morning. She came in by ambulance. She has lower extremity edema. She also was hypoxic with a sat of 71% on 6 liters. She is also tachycardic, appears to be septic. Also, has a leukocytosis of 18,000. admit the patient and consult Cardiology, Infectious Disease and Pulmonary Medicine. PAST MEDICAL HISTORY: Bronchitis, endometriosis, hypertension, hyperlipidemia, arthritis, polycystic ovarian disease, appendectomy, , meniscus tear, continued tobacco abuse, probable COPD. ALLERGIES: SULFA, CODEINE, CEPHALEXIN, HYDROCODONE AND TETRACYCLINE. FAMILY HISTORY: Diabetes. SOCIAL HISTORY: She smokes. No drinking or drugs. MEDICATIONS: Reviewed, please refer to the MRAD. HOSPITAL COURSE BELOW DISCHARGE MEDS SEE MAR D/C CONDITION GOOD PROGNOSIS GOOD WITH COMPLIANCE CONSULT ID, PULMONARY Chief Complaint Chief Complaint impression Sepsis Right lower extremity cellulitis with ulcerations Acute on chronic hypoxic and hypercapnic respiratory failure Bilateral bibasilar pneumonia, possible gram-negative organism, possible aspiration MINA Cor pulmonale Elevated troponins MAURA due to vasomotor nephropathy Lactic acidemia Super super morbid obesity Anemia of chronic disease Severe protein malnutrition 9-14 hypoxic and hypercapnic respiratory failure, likely secondary to right heart failure versus left heart failure and could be combined heart failure. Clinically, less likely pneumonia. Clinically, less likely COVID. Rapid test for COVID is negative. Appreciate pulmonary and surgery recommendationscontinue BiPAP and O2 supplementation. Repeat ABG. Pending cardiology evaluation ID evaluation Continue empiric IV antibiotics Lovenox DVT prophylaxis Protonix GI prophylaxis ADA diet CODE STATUS full Discussed with RN and SW Disposition inpatient management as above DPOA: Designated necrotic ulcer with purulent drainage in the front of the lower villalpando as well as on the back side of the leg extensive erythema involving the leg going up to the distal thigh. Extensive right lower extremity cellulitis./ Right lower extremity two infected ulcers. Fever. Leukocytosis. CONTINUE IV ZOSYN 9-15 hypoxic and hypercapnic respiratory failure, likely secondary to right heart failure versus left heart failure and could be combined heart failure. Clinically, less likely pneumonia. Clinically, less likely COVID. Rapid test for COVID is negative. Appreciate pulmonary and surgery recommendationscontinue BiPAP and O2 supplementation. Repeat ABG. Pending cardiology evaluation ID evaluation Continue empiric IV antibiotics Lovenox DVT prophylaxis Protonix GI prophylaxis ADA diet CODE STATUS full Discussed with RN and SW Disposition inpatient management as above DPOA: Designated necrotic ulcer with purulent drainage in the front of the lower villalpando as well as on the back side of the leg extensive erythema involving the leg going up to the distal thigh. Extensive right lower extremity cellulitis./ Right lower extremity two infected ulcers. Fever. Leukocytosis. D/C IV ZOSYN BEGIN PO ZYVOX BID X 10 DAYS D/C PLANNING 36 MIN History of Present Illness History of Present Illness 55-year-old female presents with severe shortness of breath. It has been occurring for a couple of weeks. It got particularly bad this morning. She came in by ambulance. She has lower extremity edema. She also was hypoxic with a sat of 71% on 6 liters. She is also tachycardic, appears to be septic. 04/01/2021 No acute events overnight. Patient continues to be on BiPAP and is saturating 96% on 60% FiO2. This will be titrated down to 40% per pulmonology pending further ABG. Fever overnight with T-max of 102.7. Patient seen and examined bedside with altered mental status. But she is able to keep the BiPAP on without agitation. However patient does require some sedatives such as Ativan to help her keep the mask on. Patient's chart, labs, images were reviewed and discussed with RN A total of 35 minutes of critical care time was spent in reviewing chart, labs, and images. Discussed with RN and SW. 04/02/2021 No acute events overnight. Patient did have her troponins increased to 2.9. Heparin drip was started. Patient is actually more alert and awake and was able to maintain O2 saturations off of BiPAP. We will now just start BiPAP only nocturnally per pulmonology. Repeat ABG as needed. Pending cardiology evaluation. Patient's chart, labs, images were reviewed and discussed with RN A total of 33 minutes of critical care time was spent in reviewing chart, labs, and images. Discussed with RN and SW. Vitals Vitals Vital Signs Date Time Temp Pulse Resp B/P (MAP) Pulse Ox O2 Delivery O2 Flow Rate FiO2 04/05/21 08:49 93 183/86 04/05/21 08:15 Nasal Cannula 5.0 04/05/21 07:00 98.2 22 97 98.2 Physical Exam Physical Exam hypoxic and hypercapnic respiratory failure, likely secondary to right heart failure versus left heart failure and could be combined heart failure. Clinically, less likely pneumonia. Clinically, less likely COVID. Rapid test for COVID is negative. necrotic ulcer with purulent drainage in the front of the lower villalpando as well as on the back side of the leg and extensive erythema involving the leg going up to the distal thigh. GENERAL: Alert and oriented female, not in any distress. VITAL SIGNS: Stable HEENT: NAD. NECK: Supple, no JVP, no lymphadenopathy. LUNGS: Clear. HEART: S1, S2 regular. ABDOMEN: Soft and nontender, no organomegaly. EXTREMITIES: Rather large. Right leg has a necrotic ulcer with purulent drainage in the front of the lower villalpando as well as on the back side of the leg and extensive erythema involving the leg going up to the distal thigh. NEUROLOGIC: The patient is alert, awake, and appropriate. No focal neurologic deficit. General: Alert, Cooperative, mild distress Heart: Regular rate Lungs: Clear Abdomen: Normal bowel sounds Extremities: No clubbing, No cyanosis FINAL DIAGNOSIS Problems Medical Problems: (1) Cellulitis of lower extremity Status: Acute (2) Respiratory failure with hypoxia Status: Acute (3) Sepsis Status: Acute Brief Hospital Course Ms. Reinoso is a 55 old [sex] who presented with [ ] CONDITION AT DISCHARGE: Improved Discharge Medications Current Medications Sodium Chloride 1,860 ml @ 1,860 mls/hr Q1H IV Last administered on 03/31/21at 12:33; Start 03/31/21 at 09:45; Stop 03/31/21 at 22:11; Status DC Sodium Chloride 500 ml @ 1,000 mls/hr PRN Q30MIN PRN IV SEE COMMENTS; Start 03/31/21 at 09:45 Vancomycin HCl (Vanco Per Pharmacy) 1 each PRN DAILY PRN MC SEE COMMENTS Last administered on 04/01/21at 10:01; Start 03/31/21 at 09:45; Stop 04/01/21 at 12:31; Status DC Levofloxacin/ Dextrose 150 ml @ 100 mls/hr 1X ONCE IV Last administered on 03/31/21at 10:03; Start 03/31/21 at 09:45; Stop 03/31/21 at 11:14; Status DC Vancomycin HCl 2 gm/Sodium Chloride 500 ml @ 250 mls/hr 1X ONCE IV Last administered on 03/31/21at 11:33; Start 03/31/21 at 10:00; Stop 03/31/21 at 11:59; Status DC Acetaminophen (Tylenol) 1,000 mg 1X ONCE PO Last administered on 03/31/21at 12:01; Start 03/31/21 at 10:30; Stop 03/31/21 at 10:31; Status DC Atorvastatin Calcium (Lipitor) 20 mg DAILY PO Last administered on 04/03/21at 09:13; Start 04/01/21 at 09:00; Stop 04/03/21 at 22:59; Status DC Non-Formulary Medication (Albuterol Sulfate (Proventil Hfa Inhaler)) . PRN PRN IH WHEEZING; Start 03/31/21 at 12:15; Status UNV Losartan Potassium (Cozaar) 100 mg DAILY PO Last administered on 04/05/21at 07:49; Start 03/31/21 at 14:00 Oxycodone HCl (Roxicodone) 5 mg PRN QID PRN PO MODERATE TO SEVERE PAIN; Start 03/31/21 at 12:30; Stop 04/01/21 at 08:21; Status DC Hydrochlorothiazide (Microzide) 12.5 mg DAILY PO Last administered on 04/05/21at 07:48; Start 03/31/21 at 14:00 Albuterol Sulfate (Ventolin Neb Soln) 2.5 mg PRN Q4HRS PRN NEB SHORTNESS OF BREATH; Start 03/31/21 at 12:30 Vancomycin HCl 2 gm/Sodium Chloride 500 ml @ 250 mls/hr Q12H IV Last administered on 04/01/21at 12:18; Start 03/31/21 at 23:30; Stop 04/01/21 at 12:27; Status DC Vancomycin HCl (Vancomycin Trough Level) 1 each 1X ONCE MC ; Start 04/01/21 at 23:00; Stop 04/01/21 at 12:34; Status DC Lorazepam (Ativan) 0.25 mg PRN Q6HRS PRN PO ANXIETY / AGITATION; Start 03/31/21 at 17:15; Stop 04/01/21 at 08:21; Status DC Morphine Sulfate (Morphine Sulfate) 2 mg PRN Q2HR PRN IV MODERATE TO SEVERE PAIN Last administered on 04/01/21at 01:50; Start 03/31/21 at 17:15; Stop 04/01/21 at 08:21; Status DC Sodium Chloride 1,000 ml @ 75 mls/hr 1X ONCE IV Last administered on 03/31/21at 22:11; Start 03/31/21 at 17:15; Stop 04/01/21 at 06:34; Status DC Acetaminophen (Tylenol) 650 mg PRN Q6HRS PRN PO MILD PAIN / TEMP > 100.3'F Last administered on 04/04/21at 12:35; Start 04/01/21 at 08:45 Piperacillin Sod/ Tazobactam Sod (Zosyn Per Pharmacy) 1 each PRN DAILY PRN MC SEE COMMENTS; Start 04/01/21 at 12:30 Enoxaparin Sodium (Lovenox 30mg Syringe) 30 mg 1X ONCE SQ Last administered on 04/01/21at 14:08; Start 04/01/21 at 13:00; Stop 04/01/21 at 13:01; Status DC Pantoprazole Sodium (Protonix) 40 mg DAILYAC PO Last administered on 04/05/21at 05:26; Start 04/01/21 at 14:00 Piperacillin Sod/ Tazobactam Sod 3.375 gm/Sodium Chloride 50 ml @ 100 mls/hr Q6HRS IV Last administered on 04/05/21at 11:47; Start 04/01/21 at 13:30 Lactobacillus Rhamnosus (Culturelle) 1 cap BID PO Last administered on 04/05/21at 07:49; Start 04/01/21 at 21:00 Linezolid (Zyvox) 600 mg BID PO Last administered on 04/05/21at 07:49; Start 04/01/21 at 21:00 Furosemide (Lasix) 40 mg 1X ONCE IVP Last administered on 04/01/21at 17:05; Start 04/01/21 at 16:30; Stop 04/01/21 at 16:31; Status DC Morphine Sulfate (Morphine Sulfate) 2 mg PRN Q2HR PRN IV SEVERE PAIN 7-10 Last administered on 04/01/21at 21:11; Start 04/01/21 at 21:00 Heparin Sodium/ Dextrose 250 ml @ 10 mls/hr CONT PRN IV PER PROTOCOL Last administered on 04/04/21at 01:02; Start 04/02/21 at 08:30 Heparin Sodium (Porcine) (Heparin Sodium) 4,300 unit PRN Q6HRS PRN IV FOR UFH LEVEL LESS THAN 0.2 Last administered on 04/04/21at 00:09; Start 04/02/21 at 08:30 Potassium Chloride (Klor-Con) 40 meq 1X ONCE PO Last administered on 04/02/21at 20:24; Start 04/02/21 at 19:45; Stop 04/02/21 at 19:46; Status DC Aspirin (Ecotrin) 81 mg DAILYWBKFT PO Last administered on 04/05/21at 07:50; Start 04/04/21 at 08:00 Amlodipine Besylate (Norvasc) 5 mg DAILY PO Last administered on 04/04/21at 09:02; Start 04/04/21 at 09:00; Stop 04/05/21 at 08:19; Status DC Atorvastatin Calcium (Lipitor) 40 mg DAILY PO Last administered on 04/05/21at 07:50; Start 04/04/21 at 09:00 Potassium Chloride (Klor-Con) 40 meq 1X ONCE PO Last administered on 04/04/21at 09:02; Start 04/04/21 at 08:15; Stop 04/04/21 at 08:18; Status DC Metoprolol Succinate (Toprol Xl) 25 mg 1X ONCE PO Last administered on 04/04/21at 12:36; Start 04/04/21 at 12:30; Stop 04/04/21 at 12:31; Status DC Metoprolol Succinate (Toprol Xl) 25 mg DAILY PO Last administered on 04/05/21at 07:49; Start 04/05/21 at 09:00; Stop 04/05/21 at 08:19; Status DC Potassium Chloride (Klor-Con) 40 meq 1X ONCE PO Last administered on 04/04/21at 12:36; Start 04/04/21 at 12:30; Stop 04/04/21 at 12:31; Status DC Potassium Chloride (Klor-Con) 40 meq 1X ONCE PO ; Start 04/04/21 at 12:30; Stop 04/04/21 at 12:31; Status UNV Furosemide (Lasix) 40 mg 1X ONCE IVP Last administered on 04/04/21at 12:39; Start 04/04/21 at 12:45; Stop 04/04/21 at 12:46; Status DC Potassium Chloride (Klor-Con) 40 meq 1X ONCE PO Last administered on 04/04/21at 18:18; Start 04/04/21 at 18:00; Stop 04/04/21 at 18:01; Status DC Amlodipine Besylate (Norvasc) 10 mg DAILY PO Last administered on 04/05/21at 08:29; Start 04/05/21 at 09:00 Carvedilol (Coreg) 6.25 mg BIDWMEALS PO Last administered on 04/05/21at 08:49; Start 04/05/21 at 09:00 Potassium Chloride (Klor-Con) 40 meq 1X ONCE PO ; Start 04/05/21 at 15:00; Stop 04/05/21 at 15:01 Active Scripts Active Oxycodone Hcl 5 Mg Capsule 1 Cap PO QID PRN Levaquin (Levofloxacin) 750 Mg Tablet 750 Mg PO DAILY06 Reported Benicar Hct 40-12.5 Mg Tablet (Olmesartan/Hydrochlorothiazide) 1 Each Tablet 1 Tab PO DAILY Lipitor (Atorvastatin Calcium) 20 Mg Tablet 1 Tab PO DAILY Proventil Hfa Inhaler (Albuterol Sulfate) 6.7 Gm Hfa.aer.ad 1-2 Puff IH PRN PRN Vital Signs Vital Signs Date Time Temp Pulse Resp B/P (MAP) Pulse Ox O2 Delivery O2 Flow Rate FiO2 04/05/21 11:00 98.3 78 22 105/58 (74) 95 Nasal Cannula 5.0 98.3 Labs Laboratory Tests Test 04/03/21 14:53 04/03/21 20:45 04/04/21 06:45 04/04/21 12:45 Heparin Anti-Xa Act, Unfractionated < 0.10 IU/mL (0.30-0.70) 0.12 IU/mL (0.30-0.70) 0.58 IU/mL (0.30-0.70) < 0.10 IU/mL (0.30-0.70) Sodium Level 132 mmol/L (136-145) Potassium Level 2.9 mmol/L (3.5-5.1) Chloride Level 93 mmol/L (98-107) Carbon Dioxide Level 37 mmol/L (21-32) Anion Gap 2 (6-14) Blood Urea Nitrogen 9 mg/dL (7-20) Creatinine 1.2 mg/dL (0.6-1.0) Estimated GFR (Cockcroft-Gault) 46.6 Glucose Level 115 mg/dL (70-99) Calcium Level 8.5 mg/dL (8.5-10.1) Magnesium Level 2.2 mg/dL (1.8-2.4) Test 04/05/21 04:00 White Blood Count 9.4 x10^3/uL (4.0-11.0) Red Blood Count 3.32 x10^6/uL (3.50-5.40) Hemoglobin 10.3 g/dL (12.0-15.5) Hematocrit 30.2 % (36.0-47.0) Mean Corpuscular Volume 91 fL (79-100) Mean Corpuscular Hemoglobin 31 pg (25-35) Mean Corpuscular Hemoglobin Concent 34 g/dL (31-37) Red Cell Distribution Width 14.7 % (11.5-14.5) Platelet Count 184 x10^3/uL (140-400) Sodium Level 134 mmol/L (136-145) Potassium Level 3.3 mmol/L (3.5-5.1) Chloride Level 95 mmol/L (98-107) Carbon Dioxide Level 43 mmol/L (21-32) Anion Gap -4 (6-14) Blood Urea Nitrogen 8 mg/dL (7-20) Creatinine 1.1 mg/dL (0.6-1.0) Estimated GFR (Cockcroft-Gault) 51.6 Glucose Level 114 mg/dL (70-99) Calcium Level 8.7 mg/dL (8.5-10.1) Laboratory Tests Test 04/05/21 04:00 White Blood Count 9.4 x10^3/uL (4.0-11.0) Red Blood Count 3.32 x10^6/uL (3.50-5.40) Hemoglobin 10.3 g/dL (12.0-15.5) Hematocrit 30.2 % (36.0-47.0) Mean Corpuscular Volume 91 fL (79-100) Mean Corpuscular Hemoglobin 31 pg (25-35) Mean Corpuscular Hemoglobin Concent 34 g/dL (31-37) Red Cell Distribution Width 14.7 % (11.5-14.5) Platelet Count 184 x10^3/uL (140-400) Sodium Level 134 mmol/L (136-145) Potassium Level 3.3 mmol/L (3.5-5.1) Chloride Level 95 mmol/L (98-107) Carbon Dioxide Level 43 mmol/L (21-32) Anion Gap -4 (6-14) Blood Urea Nitrogen 8 mg/dL (7-20) Creatinine 1.1 mg/dL (0.6-1.0) Estimated GFR (Cockcroft-Gault) 51.6 Glucose Level 114 mg/dL (70-99) Calcium Level 8.7 mg/dL (8.5-10.1) Allergies Allergies Coded Allergies Type Severity Reaction Last Updated Verified Sulfa (Sulfonamide Antibiotics) Allergy Intermediate hives 03/30/15 Yes cephalexin Allergy Intermediate Hives 04/04/16 Yes codeine Allergy Intermediate 04/04/16 Yes hydrocodone Allergy Intermediate 04/04/16 Yes tetracycline Allergy Intermediate 04/04/16 Yes Disposition/Orders: D/C to Home Justicifation of Admission Dx: Justifications for Admission: Justification of Admission Dx: Yes Comminuty Aquired Pneumonia: Hypoxemia SANAM HERRERA MD Apr 05, 2021 14:36
[2021-04-05] MEDS ORDERED: LACT1CAP19 PO (14:40)
[2021-04-05] MEDS ORDERED: LINE600T12 PO (14:40)
[2021-04-05] MEDS ORDERED: ASPI-886 PO (14:40)
[2021-04-05] MEDS ORDERED: CARV6.2511 PO (14:40)
[2021-04-05] MEDS ORDERED: PANT40TA77 PO (14:40)
[2021-04-05] MEDS ORDERED: AMLO-187 PO (14:40)
--- NOTE | 2021-04-05 14:42 | DISCH ---
DISCHARGE INSTRUCTIONS Condition on Discharge Condition on Discharge: Stable Activity After Discharge Activity Instructions for Disc: Activity as tolerated Lifting Instructions after Dis: No heavy lifting, No pulling or pushing Driving Instructions after Dis: Do not drive Diet after Discharge Diet after Discharge: Cardiac Liquid Texture: Thin Liquid Checks after Discharge Checks after discharge: Check blood press - daily Contacting the [facility] after DC Call your doctor for: If your condition worsens Follow-Up Follow up with: SEE YOUR PCP IN 3-10 DAYS Treatment/Equipment after DC Adaptive Equipment Issued: Front wheeled walker Discharge Respiratory Equipmen: Oxygen SANAM HERRERA MD Apr 05, 2021 14:42
[2021-04-05] MEDS ORDERED: POTASSIUM CHLORIDE 20 MEQ TABLET.ER. PO ONE (15:00)
--- NOTE | 2021-04-05 15:25 | NUR ---
DISCHARGE PT DISCHARGE PAPERWORK REVIEWED. RX FOR HOME O2, ET BARIATRIC WALKER SENT WITH PATIENT. WALKER ET O2 TANK SENT AT TIME OF DISCHARGE. INFORMATION GIVEN ON FREE AND LOW COST CLINICS IN THE AREA. ALL QUESTIONS ANSWERED TO PT SATISFACTION. IV SITES X2 DISCONTINUED, ET TELE MONITOR REMOVED FROM PATIENT ET ROOM. WHEELED TO FRONT DOORS IN BARIATRIC CHAIR BY [email or web address]
== END 2021-04-05 15:15 | disposition home or self-care (01) | DRG 871 ==
LOC: ER 08:52 → 6 SOUTH 11:31 → 1 WEST ICU 16:10 → 6 SOUTH 16:46
PROVIDERS: ADMIT Internal Medicine; ATTEND Internal Medicine
PROC: 5A09357 Assistance with Respiratory Ventilation, Less than 24 Consecutive Hours, Continuous Positive Airway Pressure (ICD-10-PCS; principal; 2021-03-31)
PROC: 5A09357 Assistance with Respiratory Ventilation, Less than 24 Consecutive Hours, Continuous Positive Airway Pressure (ICD-10-PCS; 2021-04-01)
PROC: 5A09357 Assistance with Respiratory Ventilation, Less than 24 Consecutive Hours, Continuous Positive Airway Pressure (ICD-10-PCS; 2021-04-02)
PROC: 5A09357 Assistance with Respiratory Ventilation, Less than 24 Consecutive Hours, Continuous Positive Airway Pressure (ICD-10-PCS; 2021-04-03)
PROC: 5A09357 Assistance with Respiratory Ventilation, Less than 24 Consecutive Hours, Continuous Positive Airway Pressure (ICD-10-PCS; 2021-04-04)
PROC: 5A09357 Assistance with Respiratory Ventilation, Less than 24 Consecutive Hours, Continuous Positive Airway Pressure (ICD-10-PCS; 2021-04-05)
DX: A41.9 Sepsis, unspecified organism (principal); E43 Unspecified severe protein-calorie malnutrition; I21.4 Non-ST elevation (NSTEMI) myocardial infarction; I50.33 Acute on chronic diastolic (congestive) heart failure; J96.21 Acute and chronic respiratory failure with hypoxia; J96.22 Acute and chronic respiratory failure with hypercapnia; N17.0 Acute kidney failure with tubular necrosis; J15.6 Pneumonia due to other Gram-negative bacteria; J69.0 Pneumonitis due to inhalation of food and vomit; E66.2 Morbid (severe) obesity with alveolar hypoventilation; J44.0 Chronic obstructive pulmonary disease with (acute) lower respiratory infection; L03.115 Cellulitis of right lower limb; L97.919 Non-pressure chronic ulcer of unspecified part of right lower leg with unspecified severity; Z68.43 Body mass index [BMI] 50.0-59.9, adult; D63.8 Anemia in other chronic diseases classified elsewhere; E78.00 Pure hypercholesterolemia, unspecified; E78.5 Hyperlipidemia, unspecified; F17.200 Nicotine dependence, unspecified, uncomplicated; I11.0 Hypertensive heart disease with heart failure; I16.0 Hypertensive urgency; I27.81 Cor pulmonale (chronic); Z20.822 Contact with and (suspected) exposure to COVID-19; Z83.3 Family history of diabetes mellitus; Z90.49 Acquired absence of other specified parts of digestive tract; E66.9 Obesity, unspecified; M19.90 Unspecified osteoarthritis, unspecified site; Z88.2 Allergy status to sulfonamides; Z88.8 Allergy status to other drugs, medicaments and biological substances; Z79.899 Other long term (current) drug therapy
CPT/HCPCS: 36415; 36600; 71045; 80048; 80053; 80061; 81001; 82805; 83605; 83735; 83880; 84484; 85007; 85025; 85027; 85520; 87426; 93005; 93306; 94618; 94660; 94760; 96361; 96365; 96366; J1644; J1650; J1940; J1956; J2270; J2543; J3370; J7030; J7040; U0003; U0005; 97530-GP; 97535-GO; 99285-25; G0378